=== PATIENT | male | born 1955 | race Caucasian/White ===

== ENCOUNTER → 2016-07-15 | Outpatient (REF) | payer BC ==
[2016-07-15 18:46] LABS: ALBUMIN 4.2 GM/DL (3.2-5.2); ALBUMIN/GLOBULIN RATIO 1.24 (1.00-1.93); ALKALINE PHOSPHATASE 126 U/L (45-117); ALT/SGPT 62 U/L (12-78); AST/SGOT 31 U/L (15-37); BILIRUBIN,DIRECT 0.1 MG/DL (0.0-0.2); BILIRUBIN,TOTAL 0.4 MG/DL (0.2-1.0); GAMMA GLUTAMYLTRANSPEPTIDASE 124 U/L (15-85); TOTAL PROTEIN 7.6 GM/DL (6.4-8.2)
== END ==
LOC: M SFHCLERA 12:07
PROVIDERS: ATTEND Physician Assistant
DX: R94.5 Abnormal results of liver function studies (principal); E11.9 Type 2 diabetes mellitus without complications

== ENCOUNTER → 2016-08-27 | Outpatient (CLI) | payer BC ==
--- NOTE | 2016-08-27 13:03 | REP ---
Clinical: Left hip pain. Technique: Neutral and frog lateral views. Findings: Moderate arthritic degenerative changes are appreciated. Findings include enthesopathy, joint space narrowing, increased sclerosis to the acetabular roof, and subtle associated spurring. No acute fracture dislocation. Impression: Moderate arthritic degenerative changes. Signed by Dayo Stevenson MD 08/27/2016 12:55 P
== END ==
LOC: M LRY 12:16
PROVIDERS: ATTEND Physician Assistant
DX: M16.12 Unilateral primary osteoarthritis, left hip (principal)

== ENCOUNTER → 2017-03-31 | Outpatient (CLI) | payer BC ==
--- NOTE | 2017-03-31 12:49 | REP ---
KUB ABDOMEN AND PELVIS: KUB films of abdomen and pelvis are performed. Bowel gas pattern is normal. A rounded calcification overlies the left renal shadow mid aspect somewhat medially measuring 1.4 cm in diameter probably representing a renal calculus. A smaller calcification is seen overlying the lower pole of the left kidney 5 mm in diameter. There are degenerative changes of the spine. There is evidence of posterior fusion as well as an intervening disc spacer at L4-5 level. IMPRESSION: Two calcifications overlie the left renal shadow which I suspect represent left renal calculi as discussed in detail above. Signed by Flash Sapp MD 03/31/2017 01:50 P
== END ==
LOC: M LRY 10:51
PROVIDERS: ATTEND Physician Assistant
DX: R10.12 Left upper quadrant pain (principal)

== ENCOUNTER → 2017-03-31 | Outpatient (REF) | payer BC ==
[2017-03-31 18:09] LABS: MEAN CORPUSCULAR HGB CONC 32.2 g/dl (32.0-36.5); MEAN CORPUSCULAR VOLUME 90.2 fl (80.0-96.0); RED CELL DISTRIBUTION WIDTH 13.7 % (11.5-14.5); WHITE BLOOD COUNT 8.8 K/mm3 (4.0-10.0)
== END ==
LOC: M SFHCLERA 10:45
PROVIDERS: ATTEND Physician Assistant
DX: R10.12 Left upper quadrant pain (principal); R31.9 Hematuria, unspecified
CPT/HCPCS: 81001; 82150; 83690; 85027; 87086; G0103

== ENCOUNTER → 2017-06-25 | Outpatient (REF) | payer BC ==
[2017-06-25 18:19] LABS: ALBUMIN 4.4 GM/DL (3.2-5.2); ALBUMIN/GLOBULIN RATIO 1.26 (1.00-1.93); ALKALINE PHOSPHATASE 103 U/L (45-117); ALT/SGPT 44 U/L (12-78); ANION GAP 10 MEQ/L (8-16); AST/SGOT 32 U/L (7-37); BILIRUBIN,TOTAL 0.4 MG/DL (0.2-1.0); BLOOD UREA NITROGEN 20 MG/DL (7-18); CALCIUM LEVEL 8.8 MG/DL (8.8-10.2); CARBON DIOXIDE LEVEL 27 MEQ/L (21-32); CHLORIDE LEVEL 103 MEQ/L (98-107); CHOLESTEROL LEVEL 241 MG/DL (<200); CREATININE FOR GFR 1.05 MG/DL (0.70-1.30); GLOMERULAR FILTRATION RATE > 60.0 (>49); GLUCOSE, FASTING 96 MG/DL (80-110); POTASSIUM SERUM 4.8 MEQ/L (3.5-5.1); SODIUM LEVEL 140 MEQ/L (136-145); TOTAL PROTEIN 7.9 GM/DL (6.4-8.2); TRIGLYCERIDES LEVEL 145 MG/DL (<150)
== END ==
LOC: M SFHCLERA 14:31
PROVIDERS: ATTEND Physician Assistant
DX: E11.9 Type 2 diabetes mellitus without complications (principal); E78.2 Mixed hyperlipidemia

== ENCOUNTER → 2017-12-01 | Outpatient (CLI) | payer BC | LOC: M PAIN 13:45 | DX: M96.1 Postlaminectomy syndrome, not elsewhere classified (principal); E11.9 Type 2 diabetes mellitus without complications; F41.9 Anxiety disorder, unspecified; I48.0 Paroxysmal atrial fibrillation; I10 Essential (primary) hypertension; E78.5 Hyperlipidemia, unspecified; M19.90 Unspecified osteoarthritis, unspecified site; R06.83 Snoring; Z79.01 Long term (current) use of anticoagulants; Z79.84 Long term (current) use of oral hypoglycemic drugs; Z79.891 Long term (current) use of opiate analgesic; Z79.899 Other long term (current) drug therapy; Z88.6 Allergy status to analgesic agent; Z88.8 Allergy status to other drugs, medicaments and biological substances; Z87.39 Personal history of other diseases of the musculoskeletal system and connective tissue; Z86.19 Personal history of other infectious and parasitic diseases; Z87.891 Personal history of nicotine dependence | CPT/HCPCS: G0463 ==

== ENCOUNTER → 2017-12-14 | Outpatient (CLI) | payer BC | LOC: M PAIN 11:45 | DX: M96.1 Postlaminectomy syndrome, not elsewhere classified (principal); M50.90 Cervical disc disorder, unspecified, unspecified cervical region; E11.9 Type 2 diabetes mellitus without complications; F41.9 Anxiety disorder, unspecified; I48.91 Unspecified atrial fibrillation; I10 Essential (primary) hypertension; E78.5 Hyperlipidemia, unspecified; M19.90 Unspecified osteoarthritis, unspecified site; Z79.01 Long term (current) use of anticoagulants; Z79.84 Long term (current) use of oral hypoglycemic drugs; Z79.891 Long term (current) use of opiate analgesic; Z79.899 Other long term (current) drug therapy; Z88.6 Allergy status to analgesic agent; Z88.8 Allergy status to other drugs, medicaments and biological substances; Z87.39 Personal history of other diseases of the musculoskeletal system and connective tissue; Z86.19 Personal history of other infectious and parasitic diseases; Z87.891 Personal history of nicotine dependence | CPT/HCPCS: G0463 ==

== ENCOUNTER → 2017-12-18 | Outpatient (REF) | payer BC ==
[2017-12-18 13:33] LABS: APPEARANCE, URINE CLEAR (CLEAR); BACTERIA, URINE AUTO NEGATIVE (NEGATIVE); BILIRUBIN, URINE AUTO NEGATIVE (NEGATIVE); BLOOD, URINE BLOOD 1+ (NEGATIVE); COLOR, URINE YELLOW (YELLOW); GLUCOSE, URINE (UA) AUTO NEGATIVE (NEGATIVE); KETONE, URINE AUTO NEGATIVE (NEGATIVE); LEUKOCYTE ESTERASE, URINE AUTO NEGATIVE (NEGATIVE); NITRITE, URINE AUTO NEGATIVE (NEGATIVE); PROTEIN, URINE AUTO NEGATIVE (NEGATIVE); RBC, URINE AUTO 4 /HPF (0-3); SPECIFIC GRAVITY URINE AUTO 1.012 (1.002-1.035); SQUAMOUS EPITHELIAL CELL UR AU 0 /HPF (0-6); UROBILINOGEN, URINE AUTO 0.2 mg/dL (0.0-2.0); WBC, URINE AUTO 1 /HPF (0-3)
== END ==
LOC: M SMT 13:08
DX: R35.0 Frequency of micturition (principal)
CPT/HCPCS: 81001

== ENCOUNTER → 2018-01-19 | Outpatient (CLI) | payer BC | LOC: M PAIN 11:30 | DX: M96.1 Postlaminectomy syndrome, not elsewhere classified (principal); M50.90 Cervical disc disorder, unspecified, unspecified cervical region; E11.9 Type 2 diabetes mellitus without complications; F41.9 Anxiety disorder, unspecified; I48.0 Paroxysmal atrial fibrillation; I10 Essential (primary) hypertension; M19.90 Unspecified osteoarthritis, unspecified site; Z79.01 Long term (current) use of anticoagulants; Z79.84 Long term (current) use of oral hypoglycemic drugs; Z79.891 Long term (current) use of opiate analgesic; Z79.899 Other long term (current) drug therapy; Z88.6 Allergy status to analgesic agent; Z88.8 Allergy status to other drugs, medicaments and biological substances; Z87.39 Personal history of other diseases of the musculoskeletal system and connective tissue; Z86.19 Personal history of other infectious and parasitic diseases | CPT/HCPCS: G0463 ==

== ENCOUNTER 2018-02-01 09:33 | Day surgery (SDC) | payer BC ==
[~2018-02-01 09:33] MED LIST: LIDOCAINE 2% INJ 100 MG/5 ML SDV (FOR ANES.) As Ordered; MIDAZOLAM INJ 2 MG/2 ML VIAL (J2250) As Ordered; ONDANSETRON 4MG/2ML VIAL (J2405) As Ordered; PROPOFOL 200 MG/20 ML VIAL As Ordered; fentaNYL 100 MCG/2 ML INJECTION (J3010) As Ordered
[2018-02-01] MEDS ORDERED: LR 1,000 ML IV ×2 (10:00→13:45)
[2018-02-01 10:23] LABS: BEDSIDE GLUCOSE 192 MG/DL (80-115)
[2018-02-01] MEDS ORDERED: PHENYLephrine HCL 500 MCG/5 ML (100MCG/ML) SYRINGE (J2370) As Ordered (11:12)
[2018-02-01] MEDS ORDERED: ONDANSETRON 4MG/2ML VIAL (J2405) As Ordered (11:15)
[2018-02-01] MEDS ORDERED: fentaNYL 100 MCG/2 ML INJECTION (J3010) As Ordered ×2 (12:05→13:01)
[2018-02-01] MEDS ORDERED: dexameTHASONE 4 MG/ML 1ML VIAL (J1100) As Ordered (12:06)
[2018-02-01] MEDS: CONRAY-60 60% 50ML VIAL (Q9961) As Ordered (13:00)
[2018-02-01] MEDS: PERCOCET 5MG/325MG TAB PO ×2 (13:38→14:16)
[2018-02-01] MEDS ORDERED: NORCO, ANEXSIA 5/325MG TABLET (HYDROcodone/ACETAMINOPHEN) PO ×2 (13:45)
[2018-02-01] MEDS ORDERED: METOCLOPRAMIDE INJ 10MG/2ML VIAL (J2765) IV (13:45)
[2018-02-01] MEDS ORDERED: ONDANSETRON 4MG/2ML VIAL (J2405) IV (13:45)
[2018-02-01] MEDS: fentaNYL 100 MCG/2 ML INJECTION (J3010) IV ×8 (13:45→14:35)
[2018-02-01] MEDS: MORPHINE 4 MG/ML 1ML VIAL/SYRINGE (J2270) IV (15:23)
== END 2018-02-01 16:02 | disposition home or self-care (01) ==
LOC: M SDC 09:33
DX: N20.0 Calculus of kidney (principal); I10 Essential (primary) hypertension; I48.91 Unspecified atrial fibrillation; E78.5 Hyperlipidemia, unspecified; E11.9 Type 2 diabetes mellitus without complications; Z87.891 Personal history of nicotine dependence; Z79.899 Other long term (current) drug therapy; Z79.02 Long term (current) use of antithrombotics/antiplatelets
CPT/HCPCS: 52356

== ENCOUNTER → 2018-02-15 | Outpatient (CLI) | payer BC | LOC: M PAIN 11:00 | DX: M96.1 Postlaminectomy syndrome, not elsewhere classified (principal); M50.90 Cervical disc disorder, unspecified, unspecified cervical region; F41.9 Anxiety disorder, unspecified; I48.0 Paroxysmal atrial fibrillation; I10 Essential (primary) hypertension; E78.5 Hyperlipidemia, unspecified; E11.9 Type 2 diabetes mellitus without complications; Z87.442 Personal history of urinary calculi; Z87.891 Personal history of nicotine dependence; Z79.891 Long term (current) use of opiate analgesic; Z88.6 Allergy status to analgesic agent; Z88.8 Allergy status to other drugs, medicaments and biological substances; Z79.84 Long term (current) use of oral hypoglycemic drugs; Z79.899 Other long term (current) drug therapy | CPT/HCPCS: G0463 ==

== ENCOUNTER → 2018-04-06 | Outpatient (CLI) | payer BC | LOC: M PAIN 11:15 | DX: M96.1 Postlaminectomy syndrome, not elsewhere classified (principal); M47.816 Spondylosis without myelopathy or radiculopathy, lumbar region; M47.812 Spondylosis without myelopathy or radiculopathy, cervical region; F41.9 Anxiety disorder, unspecified; I48.0 Paroxysmal atrial fibrillation; I10 Essential (primary) hypertension; E78.5 Hyperlipidemia, unspecified; E11.9 Type 2 diabetes mellitus without complications; Z87.442 Personal history of urinary calculi; Z79.891 Long term (current) use of opiate analgesic; Z79.01 Long term (current) use of anticoagulants; Z79.84 Long term (current) use of oral hypoglycemic drugs; Z79.899 Other long term (current) drug therapy; Z88.6 Allergy status to analgesic agent; Z88.8 Allergy status to other drugs, medicaments and biological substances | CPT/HCPCS: G0463 ==

== ENCOUNTER → 2018-04-22 | Outpatient (REF) | payer BC ==
[2018-04-22 17:52] LABS: CHOLESTEROL LEVEL 165 MG/DL (<200); HDL CHOLESTEROL 44 MG/DL (>40); LDL CHOLESTEROL 99 MG/DL (<100); NON-HDL-C 121 MG/DL; TRIGLYCERIDES LEVEL 109 MG/DL (<150)
[2018-04-22 18:05] LABS: ESTIMATED AVERAGE GLUCOSE 160 MG/DL (60-110); HEMOGLOBIN A1c 7.2 %
== END ==
LOC: M SFHCLERA 10:47
DX: E78.2 Mixed hyperlipidemia (principal)
CPT/HCPCS: 83036

== ENCOUNTER → 2018-05-04 | Outpatient (CLI) | payer BC | LOC: M PAIN 11:30 | DX: M96.1 Postlaminectomy syndrome, not elsewhere classified (principal); I48.0 Paroxysmal atrial fibrillation; E11.9 Type 2 diabetes mellitus without complications; I10 Essential (primary) hypertension; E78.5 Hyperlipidemia, unspecified; M19.90 Unspecified osteoarthritis, unspecified site; F41.9 Anxiety disorder, unspecified; Z79.01 Long term (current) use of anticoagulants; Z79.84 Long term (current) use of oral hypoglycemic drugs; Z79.891 Long term (current) use of opiate analgesic; Z79.899 Other long term (current) drug therapy; Z88.6 Allergy status to analgesic agent; Z88.8 Allergy status to other drugs, medicaments and biological substances; Z86.19 Personal history of other infectious and parasitic diseases; Z87.39 Personal history of other diseases of the musculoskeletal system and connective tissue; Z87.891 Personal history of nicotine dependence | CPT/HCPCS: G0463 ==

== ENCOUNTER 2018-06-02 18:17 | Inpatient (IN) | payer BC ==
[2018-06-02] MEDS: NS 1,000 ML IV (19:30)
[2018-06-02 20:26] LABS: ANION GAP 11 MEQ/L (8-16); BLOOD UREA NITROGEN 23 MG/DL (7-18); CALCIUM LEVEL 8.4 MG/DL (8.8-10.2); CARBON DIOXIDE LEVEL 19 MEQ/L (21-32); CHLORIDE LEVEL 108 MEQ/L (98-107); CREATININE FOR GFR 1.09 MG/DL (0.70-1.30); GLOMERULAR FILTRATION RATE > 60.0 (>49); GLUCOSE, FASTING 157 MG/DL (70-100); POTASSIUM SERUM 3.4 MEQ/L (3.5-5.1); SODIUM LEVEL 138 MEQ/L (136-145)
[2018-06-02] MEDS ORDERED: ONDANSETRON 4MG/2ML VIAL (J2405) IV (20:30)
[2018-06-02 20:31] LABS: HEMATOCRIT 42.8 % (42.0-52.0); HEMOGLOBIN 14.1 g/dl (13.5-17.5); MEAN CORPUSCULAR HEMOGLOBIN 27.1 pg (27.0-33.0); MEAN CORPUSCULAR HGB CONC 32.9 g/dl (32.0-36.5); MEAN CORPUSCULAR VOLUME 82.1 fl (80.0-96.0); PLATELET COUNT, AUTOMATED 267 10^3/uL (150-450); RED BLOOD COUNT 5.21 10^6/uL (4.30-6.10); RED CELL DISTRIBUTION WIDTH 14.8 % (11.5-14.5); WHITE BLOOD COUNT 20.6 10^3/uL (4.0-10.0)
[2018-06-02 20:40] LABS: BEDSIDE GLUCOSE 156 MG/DL (80-115)
[2018-06-02] MEDS: APIXABAN 5 MG TAB (ELIQUIS) PO (20:57)
[2018-06-02] MEDS: FLECAINIDE 50MG TABLET PO (20:57)
[2018-06-02] MEDS: PIPERACILLIN/TAZOBACTAM SOD 3.375 GM in D5W MINI-BAG PLUS 50 ML IV (21:00)
[2018-06-02] MEDS: LORazepam 2 MG TAB PO (21:30)
[2018-06-02] MEDS: LOPERAMIDE 2 MG CAP PO (23:35)
[2018-06-03 01:10] LABS: APPEARANCE, URINE HAZY (CLEAR); BACTERIA, URINE AUTO 1+ (NEGATIVE); BILIRUBIN, URINE AUTO NEGATIVE (NEGATIVE); BLOOD, URINE BLOOD 2+ (NEGATIVE); COLOR, URINE YELLOW (YELLOW); GLUCOSE, URINE (UA) AUTO NEGATIVE (NEGATIVE); KETONE, URINE AUTO NEGATIVE (NEGATIVE); LEUKOCYTE ESTERASE, URINE AUTO 3+ (NEGATIVE); NITRITE, URINE AUTO NEGATIVE (NEGATIVE); PROTEIN, URINE AUTO 1+ mg/dL (NEGATIVE); RBC, URINE AUTO 13 /HPF (0-3); SQUAMOUS EPITHELIAL CELL UR AU 0 /HPF (0-6); UROBILINOGEN, URINE AUTO 0.2 mg/dL (0.0-2.0); WBC, URINE AUTO 108 /HPF (0-3)
[2018-06-03] MEDS: CARVedilol 12.5 MG TAB PO ×2 (03:11→08:45)
[2018-06-03] MEDS: LORazepam 2 MG TAB PO ×4 (03:18→21:42)
[2018-06-03] MEDS: NS 1,000 ML IV ×3 (03:30→18:04)
[2018-06-03 05:40] LABS: HEMOGLOBIN 12.8 g/dl (13.5-17.5); MEAN CORPUSCULAR HEMOGLOBIN 27.2 pg (27.0-33.0); MEAN CORPUSCULAR HGB CONC 32.8 g/dl (32.0-36.5); MEAN CORPUSCULAR VOLUME 82.8 fl (80.0-96.0); PLATELET COUNT, AUTOMATED 235 10^3/uL (150-450); RED BLOOD COUNT 4.71 10^6/uL (4.30-6.10); WHITE BLOOD COUNT 16.6 10^3/uL (4.0-10.0)
[2018-06-03] MEDS: PIPERACILLIN/TAZOBACTAM SOD 3.375 GM in D5W MINI-BAG PLUS 50 ML IV ×3 (05:52→21:36)
[2018-06-03 05:54] LABS: ANION GAP 10 MEQ/L (8-16); BLOOD UREA NITROGEN 24 MG/DL (7-18); CALCIUM LEVEL 7.9 MG/DL (8.8-10.2); CARBON DIOXIDE LEVEL 20 MEQ/L (21-32); CHLORIDE LEVEL 109 MEQ/L (98-107); CREATININE FOR GFR 1.09 MG/DL (0.70-1.30); GLOMERULAR FILTRATION RATE > 60.0 (>49); GLUCOSE, FASTING 144 MG/DL (70-100); POTASSIUM SERUM 3.4 MEQ/L (3.5-5.1); SODIUM LEVEL 139 MEQ/L (136-145)
[2018-06-03] MEDS: APIXABAN 5 MG TAB (ELIQUIS) PO ×2 (08:46→21:35)
[2018-06-03] MEDS: FLECAINIDE 50MG TABLET PO ×2 (08:49→21:35)
[2018-06-03] MEDS: DULoxetine 30 MG CAP (CYMBALTA) PO (08:49)
[2018-06-03] MEDS: DIGOXIN INJ 0.5 MG/2 ML AMP (J1160) IV (08:50)
[2018-06-03] MEDS ORDERED: HEPARIN SOD (PORCINE) 5000 UNITS/ML VIAL SQ (09:00)
[2018-06-03] MEDS ORDERED: PROPOFOL 200 MG/20 ML VIAL As Ordered (10:46)
[2018-06-03] MEDS ORDERED: LIDOCAINE 2% INJ 100 MG/5 ML SDV (FOR ANES.) As Ordered (10:46)
[2018-06-03] MEDS ORDERED: MIDAZOLAM INJ 2 MG/2 ML VIAL (J2250) As Ordered (10:47)
[2018-06-03] MEDS ORDERED: fentaNYL 100 MCG/2 ML INJECTION (J3010) As Ordered (10:47)
[2018-06-03] MEDS ORDERED: PHENYLephrine HCL 500 MCG/5 ML (100MCG/ML) SYRINGE (J2370) As Ordered (11:56)
[2018-06-03] MEDS: CONRAY-60 60% 50ML VIAL (Q9961) As Ordered (11:58)
[2018-06-03] MEDS ORDERED: ONDANSETRON 4MG/2ML VIAL (J2405) As Ordered (12:02)
[2018-06-03] MEDS ORDERED: METOCLOPRAMIDE INJ 10MG/2ML VIAL (J2765) As Ordered (12:02)
[2018-06-03] MEDS ORDERED: GLUCAGON FOR INJ 1 MG VIAL (J1610) SC (13:30)
[2018-06-03] MEDS ORDERED: DEXTROSE 50% 50 ML SYRINGE IV (13:30)
[2018-06-03] MEDS ORDERED: GLUCOSE 4 GM CHEW TABLET PO (13:30)
[2018-06-03] MEDS: TAMSULOSIN 0.4 MG CAP PO (13:53)
[2018-06-03] MEDS: NORCO, ANEXSIA 5/325MG TABLET (HYDROcodone/ACETAMINOPHEN) PO ×3 (13:55→21:42)
[2018-06-03] MEDS: HumaLOG INSULIN (NovoLOG) PER UNIT SC ×3 (15:43→20:58)
[2018-06-03] MEDS: LOPERAMIDE 2 MG CAP PO ×2 (18:05→21:35)
[2018-06-03] MEDS: POTASSIUM CHLORIDE 10 MEQ SR TABLET PO (18:06)
[2018-06-03 18:32] LABS: BEDSIDE GLUCOSE 107 MG/DL (80-115)
[2018-06-03 20:58] LABS: BEDSIDE GLUCOSE 127 MG/DL (80-115)
[2018-06-03] MEDS: ROSUVASTATIN 10 MG TAB (CRESTOR) PO (21:35)
[2018-06-04] MEDS: LOPERAMIDE 2 MG CAP PO ×3 (00:39→10:12)
[2018-06-04] MEDS: NORCO, ANEXSIA 5/325MG TABLET (HYDROcodone/ACETAMINOPHEN) PO ×2 (03:25→10:26)
[2018-06-04] MEDS: NS 1,000 ML IV (03:30)
[2018-06-04] MEDS: LORazepam 2 MG TAB PO ×3 (04:40→21:23)
[2018-06-04] MEDS: PIPERACILLIN/TAZOBACTAM SOD 3.375 GM in D5W MINI-BAG PLUS 50 ML IV ×3 (05:18→21:21)
[2018-06-04 06:03] LABS: HEMATOCRIT 35.2 % (42.0-52.0); MEAN CORPUSCULAR HGB CONC 31.3 g/dl (32.0-36.5); MEAN CORPUSCULAR VOLUME 86.5 fl (80.0-96.0); PLATELET COUNT, AUTOMATED 234 10^3/uL (150-450); RED BLOOD COUNT 4.07 10^6/uL (4.30-6.10); RED CELL DISTRIBUTION WIDTH 15.5 % (11.5-14.5); WHITE BLOOD COUNT 13.9 10^3/uL (4.0-10.0)
[2018-06-04 06:30] LABS: ANION GAP 8 MEQ/L (8-16); BLOOD UREA NITROGEN 24 MG/DL (7-18); CALCIUM LEVEL 7.5 MG/DL (8.8-10.2); CARBON DIOXIDE LEVEL 22 MEQ/L (21-32); CHLORIDE LEVEL 108 MEQ/L (98-107); GLOMERULAR FILTRATION RATE > 60.0 (>49); GLUCOSE, FASTING 124 MG/DL (70-100); POTASSIUM SERUM 3.5 MEQ/L (3.5-5.1); SODIUM LEVEL 138 MEQ/L (136-145)
[2018-06-04] MEDS: APIXABAN 5 MG TAB (ELIQUIS) PO ×2 (10:12→21:22)
[2018-06-04] MEDS: FLECAINIDE 50MG TABLET PO ×2 (10:13→21:22)
[2018-06-04] MEDS: DULoxetine 30 MG CAP (CYMBALTA) PO (10:14)
[2018-06-04] MEDS: TAMSULOSIN 0.4 MG CAP PO (10:15)
[2018-06-04] MEDS: HumaLOG INSULIN (NovoLOG) PER UNIT SC ×4 (10:18→21:00)
[2018-06-04 12:18] LABS: BEDSIDE GLUCOSE 103 MG/DL (80-115)
[2018-06-04] MEDS: ACETAMINOPHEN TAB 650MG DOSE (2X325MG) PO (15:48)
[2018-06-04 17:02] LABS: BEDSIDE GLUCOSE 129 MG/DL (80-115)
[2018-06-04 20:23] LABS: BEDSIDE GLUCOSE 127 MG/DL (80-115)
[2018-06-04] MEDS: ROSUVASTATIN 10 MG TAB (CRESTOR) PO (21:23)
[2018-06-05] MEDS: LOPERAMIDE 2 MG CAP PO ×2 (00:09→05:15)
[2018-06-05] MEDS: LORazepam 2 MG TAB PO ×4 (03:34→23:49)
[2018-06-05] MEDS: PIPERACILLIN/TAZOBACTAM SOD 3.375 GM in D5W MINI-BAG PLUS 50 ML IV (05:15)
[2018-06-05 05:57] LABS: HEMATOCRIT 35.3 % (42.0-52.0); HEMOGLOBIN 11.3 g/dl (13.5-17.5); MEAN CORPUSCULAR HEMOGLOBIN 27.3 pg (27.0-33.0); MEAN CORPUSCULAR VOLUME 85.3 fl (80.0-96.0); PLATELET COUNT, AUTOMATED 259 10^3/uL (150-450); RED BLOOD COUNT 4.14 10^6/uL (4.30-6.10); RED CELL DISTRIBUTION WIDTH 15.2 % (11.5-14.5); WHITE BLOOD COUNT 13.5 10^3/uL (4.0-10.0)
[2018-06-05 06:22] LABS: ANION GAP 8 MEQ/L (8-16); BLOOD UREA NITROGEN 15 MG/DL (7-18); CARBON DIOXIDE LEVEL 24 MEQ/L (21-32); CHLORIDE LEVEL 110 MEQ/L (98-107); CREATININE FOR GFR 0.97 MG/DL (0.70-1.30); GLOMERULAR FILTRATION RATE > 60.0 (>49); GLUCOSE, FASTING 135 MG/DL (70-100); POTASSIUM SERUM 3.2 MEQ/L (3.5-5.1); SODIUM LEVEL 142 MEQ/L (136-145)
[2018-06-05] MEDS: POTASSIUM CHLORIDE 10 MEQ SR TABLET PO (08:24)
[2018-06-05] MEDS: LevoFLOXacin 250 MG TABLET PO (08:24)
[2018-06-05] MEDS: TAMSULOSIN 0.4 MG CAP PO (08:25)
[2018-06-05] MEDS: FLECAINIDE 50MG TABLET PO ×2 (08:25→20:42)
[2018-06-05] MEDS: HumaLOG INSULIN (NovoLOG) PER UNIT SC ×4 (08:25→20:42)
[2018-06-05] MEDS: DULoxetine 30 MG CAP (CYMBALTA) PO (08:25)
[2018-06-05] MEDS: APIXABAN 5 MG TAB (ELIQUIS) PO ×2 (08:25→20:42)
[2018-06-05] MEDS ORDERED: oxyBUTYnin 5 MG TAB PO (09:00)
[2018-06-05] MEDS: oxyBUTYnin *DITROPAN XL* 5 MG TABCR PO (10:19)
[2018-06-05] MEDS: LACTOBACILLUS ACIDOPHILUS CAP (BACID) PO ×2 (10:19→17:51)
[2018-06-05 11:52] LABS: BEDSIDE GLUCOSE 94 MG/DL (80-115)
[2018-06-05 17:36] LABS: BEDSIDE GLUCOSE 145 MG/DL (80-115)
[2018-06-05 20:07] LABS: BEDSIDE GLUCOSE 126 MG/DL (80-115)
[2018-06-05] MEDS: ROSUVASTATIN 10 MG TAB (CRESTOR) PO (20:42)
[2018-06-06 05:09] LABS: HEMATOCRIT 33.2 % (42.0-52.0); HEMOGLOBIN 10.9 g/dl (13.5-17.5); MEAN CORPUSCULAR HEMOGLOBIN 27.1 pg (27.0-33.0); MEAN CORPUSCULAR HGB CONC 32.8 g/dl (32.0-36.5); MEAN CORPUSCULAR VOLUME 82.6 fl (80.0-96.0); PLATELET COUNT, AUTOMATED 305 10^3/uL (150-450); RED BLOOD COUNT 4.02 10^6/uL (4.30-6.10); WHITE BLOOD COUNT 11.5 10^3/uL (4.0-10.0)
[2018-06-06 05:29] LABS: ANION GAP 8 MEQ/L (8-16); BLOOD UREA NITROGEN 12 MG/DL (7-18); CALCIUM LEVEL 8.1 MG/DL (8.8-10.2); CARBON DIOXIDE LEVEL 25 MEQ/L (21-32); CHLORIDE LEVEL 108 MEQ/L (98-107); CREATININE FOR GFR 0.91 MG/DL (0.70-1.30); GLOMERULAR FILTRATION RATE > 60.0 (>49); GLUCOSE, FASTING 128 MG/DL (70-100); POTASSIUM SERUM 3.3 MEQ/L (3.5-5.1); SODIUM LEVEL 141 MEQ/L (136-145)
[2018-06-06] MEDS: LevoFLOXacin 250 MG TABLET PO (05:31)
[2018-06-06] MEDS: HumaLOG INSULIN (NovoLOG) PER UNIT SC ×4 (07:47→20:45)
[2018-06-06] MEDS: LACTOBACILLUS ACIDOPHILUS CAP (BACID) PO ×2 (07:47→17:15)
[2018-06-06] MEDS: LORazepam 2 MG TAB PO ×2 (07:47→17:14)
[2018-06-06] MEDS: oxyBUTYnin *DITROPAN XL* 5 MG TABCR PO (08:11)
[2018-06-06] MEDS: POTASSIUM CHLORIDE 10 MEQ SR TABLET PO (08:11)
[2018-06-06] MEDS: APIXABAN 5 MG TAB (ELIQUIS) PO ×2 (08:11→20:50)
[2018-06-06] MEDS: TAMSULOSIN 0.4 MG CAP PO (08:11)
[2018-06-06] MEDS: DULoxetine 30 MG CAP (CYMBALTA) PO (08:11)
[2018-06-06] MEDS: FLECAINIDE 50MG TABLET PO ×2 (08:11→20:53)
[2018-06-06] MEDS ORDERED: MORPHINE 15 MG SA TAB PO (09:00)
[2018-06-06 12:20] LABS: BEDSIDE GLUCOSE 120 MG/DL (80-115)
[2018-06-06 17:26] LABS: BEDSIDE GLUCOSE 140 MG/DL (80-115)
[2018-06-06 20:45] LABS: BEDSIDE GLUCOSE 160 MG/DL (80-115)
[2018-06-06] MEDS: oxyBUTYnin 5 MG TAB PO (20:50)
[2018-06-06] MEDS: ROSUVASTATIN 10 MG TAB (CRESTOR) PO (20:50)
[2018-06-06] MEDS: MORPHINE 15 MG SA TAB PO (20:50)
[2018-06-06] MEDS: NORCO, ANEXSIA 5/325MG TABLET (HYDROcodone/ACETAMINOPHEN) PO (22:07)
[2018-06-07 05:29] LABS: HEMOGLOBIN 12.2 g/dl (13.5-17.5); MEAN CORPUSCULAR HGB CONC 32.1 g/dl (32.0-36.5); MEAN CORPUSCULAR VOLUME 84.1 fl (80.0-96.0); PLATELET COUNT, AUTOMATED 389 10^3/uL (150-450); RED BLOOD COUNT 4.52 10^6/uL (4.30-6.10); RED CELL DISTRIBUTION WIDTH 14.8 % (11.5-14.5); WHITE BLOOD COUNT 10.1 10^3/uL (4.0-10.0)
[2018-06-07] MEDS: LevoFLOXacin 250 MG TABLET PO (05:38)
[2018-06-07 05:50] LABS: ANION GAP 10 MEQ/L (8-16); BLOOD UREA NITROGEN 13 MG/DL (7-18); CARBON DIOXIDE LEVEL 24 MEQ/L (21-32); CHLORIDE LEVEL 105 MEQ/L (98-107); CREATININE FOR GFR 0.99 MG/DL (0.70-1.30); GLOMERULAR FILTRATION RATE > 60.0 (>49); GLUCOSE, FASTING 161 MG/DL (70-100); POTASSIUM SERUM 3.3 MEQ/L (3.5-5.1); SODIUM LEVEL 139 MEQ/L (136-145)
[2018-06-07] MEDS: LACTOBACILLUS ACIDOPHILUS CAP (BACID) PO ×2 (07:39→17:36)
[2018-06-07] MEDS: HumaLOG INSULIN (NovoLOG) PER UNIT SC ×4 (07:40→20:27)
[2018-06-07] MEDS: POTASSIUM CHLORIDE 10 MEQ SR TABLET PO (09:46)
[2018-06-07] MEDS: FLECAINIDE 50MG TABLET PO ×2 (09:53→21:00)
[2018-06-07] MEDS: TAMSULOSIN 0.4 MG CAP PO (09:54)
[2018-06-07] MEDS: oxyBUTYnin 5 MG TAB PO ×3 (09:54→21:09)
[2018-06-07] MEDS: APIXABAN 5 MG TAB (ELIQUIS) PO ×2 (09:54→21:09)
[2018-06-07] MEDS: DULoxetine 30 MG CAP (CYMBALTA) PO (09:56)
[2018-06-07] MEDS ORDERED: SLF 3 ML SYR IV (11:30)
[2018-06-07 11:42] LABS: BEDSIDE GLUCOSE 145 MG/DL (80-115)
[2018-06-07] MEDS: LORazepam 2 MG TAB PO (12:13)
[2018-06-07] MEDS: SLF 3 ML SYR IV ×2 (15:56→21:13)
[2018-06-07 17:09] LABS: BEDSIDE GLUCOSE 136 MG/DL (80-115)
[2018-06-07 20:25] LABS: BEDSIDE GLUCOSE 135 MG/DL (80-115)
[2018-06-07] MEDS: MORPHINE 15 MG SA TAB PO (21:10)
[2018-06-07] MEDS: ROSUVASTATIN 10 MG TAB (CRESTOR) PO (21:10)
[2018-06-08] MEDS: SLF 3 ML SYR IV (05:04)
[2018-06-08] MEDS: LevoFLOXacin 500 MG TABLET PO (05:24)
[2018-06-08 05:55] LABS: HEMATOCRIT 36.7 % (42.0-52.0); HEMOGLOBIN 11.7 g/dl (13.5-17.5); MEAN CORPUSCULAR HEMOGLOBIN 27.1 pg (27.0-33.0); MEAN CORPUSCULAR HGB CONC 31.9 g/dl (32.0-36.5); PLATELET COUNT, AUTOMATED 493 10^3/uL (150-450); RED BLOOD COUNT 4.32 10^6/uL (4.30-6.10); RED CELL DISTRIBUTION WIDTH 14.9 % (11.5-14.5); WHITE BLOOD COUNT 11.3 10^3/uL (4.0-10.0)
[2018-06-08 06:24] LABS: ANION GAP 7 MEQ/L (8-16); BLOOD UREA NITROGEN 14 MG/DL (7-18); CALCIUM LEVEL 8.4 MG/DL (8.8-10.2); CARBON DIOXIDE LEVEL 28 MEQ/L (21-32); CHLORIDE LEVEL 104 MEQ/L (98-107); CREATININE FOR GFR 0.93 MG/DL (0.70-1.30); GLOMERULAR FILTRATION RATE > 60.0 (>49); GLUCOSE, FASTING 130 MG/DL (70-100); POTASSIUM SERUM 3.8 MEQ/L (3.5-5.1); SODIUM LEVEL 139 MEQ/L (136-145)
[2018-06-08] MEDS: HumaLOG INSULIN (NovoLOG) PER UNIT SC (07:30)
[2018-06-08] MEDS: FLECAINIDE 50MG TABLET PO (08:22)
[2018-06-08] MEDS: LORazepam 2 MG TAB PO (08:23)
[2018-06-08] MEDS: DULoxetine 30 MG CAP (CYMBALTA) PO (08:23)
[2018-06-08] MEDS: POTASSIUM CHLORIDE 10 MEQ SR TABLET PO (08:23)
[2018-06-08] MEDS: APIXABAN 5 MG TAB (ELIQUIS) PO (08:23)
[2018-06-08] MEDS: TAMSULOSIN 0.4 MG CAP PO (08:23)
[2018-06-08] MEDS: LACTOBACILLUS ACIDOPHILUS CAP (BACID) PO (08:23)
[2018-06-08] MEDS: oxyBUTYnin 5 MG TAB PO (08:24)
== END 2018-06-08 11:48 | disposition home or self-care (01) | DRG 720 ==
LOC: M PCU 18:17
PROVIDERS: Hospitalist
PROC: 0T9740Z Drainage of Left Ureter with Drainage Device, Percutaneous Endoscopic Approach (ICD-10-PCS; principal; 2018-06-03 11:37)
DX: A41.51 Sepsis due to Escherichia coli [E. coli] (principal); N13.30 Unspecified hydronephrosis; I10 Essential (primary) hypertension; I48.0 Paroxysmal atrial fibrillation; N20.1 Calculus of ureter; M96.1 Postlaminectomy syndrome, not elsewhere classified; E11.9 Type 2 diabetes mellitus without complications; N39.0 Urinary tract infection, site not specified; E78.5 Hyperlipidemia, unspecified; Z79.899 Other long term (current) drug therapy; Z79.82 Long term (current) use of aspirin; Z88.6 Allergy status to analgesic agent; R19.7 Diarrhea, unspecified; B18.2 Chronic viral hepatitis C

== ENCOUNTER → 2018-06-15 | Outpatient (CLI) | payer BC | LOC: M SMT 15:23 | DX: N20.0 Calculus of kidney (principal); Z96.0 Presence of urogenital implants | CPT/HCPCS: 74018 ==

== ENCOUNTER → 2018-06-15 | Outpatient (REF) | payer BC ==
[2018-06-15 19:14] LABS: APPEARANCE, URINE CLEAR (CLEAR); BACTERIA, URINE AUTO NEGATIVE (NEGATIVE); BILIRUBIN, URINE AUTO NEGATIVE (NEGATIVE); BLOOD, URINE BLOOD 2+ (NEGATIVE); COLOR, URINE YELLOW (YELLOW); GLUCOSE, URINE (UA) AUTO NEGATIVE (NEGATIVE); KETONE, URINE AUTO NEGATIVE (NEGATIVE); LEUKOCYTE ESTERASE, URINE AUTO TRACE (NEGATIVE); NITRITE, URINE AUTO NEGATIVE (NEGATIVE); PROTEIN, URINE AUTO NEGATIVE (NEGATIVE); RBC, URINE AUTO 18 /HPF (0-3); SPECIFIC GRAVITY URINE AUTO 1.008 (1.002-1.035); SQUAMOUS EPITHELIAL CELL UR AU 0 /HPF (0-6); UROBILINOGEN, URINE AUTO 0.2 mg/dL (0.0-2.0); WBC, URINE AUTO 7 /HPF (0-3)
== END ==
LOC: M SMT 17:16
DX: N20.0 Calculus of kidney (principal)
CPT/HCPCS: 81001

== ENCOUNTER → 2018-06-22 | Outpatient (CLI) | payer BC ==
[~2018-06-22] MED LIST changes: +CARV12.5 PO; +DILT1TAB3 PO; +DILT30TA PO; +DULO1CAP2 PO; +DULO1CAP3 PO; +ELIQ5TAB PO; +FLEC1TAB PO; +FLOM0.4C39 PO; +HYDR-3719 PO; +KLOR10TA76 PO; +LEVA1TAB2 PO; -LIDOCAINE 2% INJ 100 MG/5 ML SDV (FOR ANES.) As Ordered; +LORA2TAB9 PO; +METF500T13 PO; +METF500T4 PO; -MIDAZOLAM INJ 2 MG/2 ML VIAL (J2250) As Ordered; +MORP-38 PO; +MORP30TASA PO; -ONDANSETRON 4MG/2ML VIAL (J2405) As Ordered; +OXYB5TAB10 PO; +PATIENT COMMENTS; -PROPOFOL 200 MG/20 ML VIAL As Ordered; +ROSU10TA5 PO; -fentaNYL 100 MCG/2 ML INJECTION (J3010) As Ordered
--- NOTE | 2018-07-15 00:36 | ECWPNPC ---
PATIENT NAME: TAMIR JASSO : 1955 GENDER: MALE VISIT DATE: 06/22/2018 DISCHARGE DATE: 06/22/18 1008 VISIT LOCKED DATE TIME: PHYSICIAN: WARREN SNYDER RESOURCE: WARREN SNYDER REASON FOR APPOINTMENT 1. SW PT, BACK PAIN MED MAN HISTORY OF PRESENT ILLNESS DEPRESSION SCREENING: PHQ-2 IN LAST TWO WEEKS HAVE YOU BEEN BOTHERED BY LITTLE INTEREST OR PLEASURE IN DOING THINGSNO FEELING DOWN, DEPRESSED, OR HOPELESSNO HISTORY OF PRESENT ILLNESS: PAIN THE PATIENT DESCRIBES THE PAIN... FALL RISK SCREENING: SCREENING :NO FALLS IN THE PAST YEAR CURRENT MEDICATIONS TAKING EPIPEN 0.3 MG/0.3ML DEVICE USE DIRECTED INJECTION AT FIRST SIGN OF ANAPHYLAXIS AND GO TO ED. TAKING ALCOHOL PREP PAD 70 % PAD USE 1 PAD TOPICALLY WHEN TESTING BLOOD SUGAR UP TO BID (DX: 250.00) TAKING FLECAINIDE ACETATE 100 MG TABLET 1 TABLET ORALLY BID TAKING ELIQUIS 5 MG TABLET ORALLY BID TAKING ONE TOUCH ULTRA TEST STRIPS ULTRA MINI STRIPS USE 1 TEST STRIP . TO TEST BLOOD SUGAR UP TO BID (DX: 250.00) TAKING ATIVAN 2 MG TABLET 1TAB ORALLY QID PRN MDD=4 TAKING CYMBALTA 60 MG CAPSULE DELAYED RELEASE PARTICLES 1 CAPSULE ORALLY 15 MG TID TAKING METFORMIN HCL 500 MG TABLET 1 TABLET WITH A MEAL ORALLY ONCE A DAY TAKING ONETOUCH TEST - STRIP DIRECTED IN VITRO BID ICD10 E11.65 TAKING HYDROMORPHONE HCL ER 8 MG TABLET ER 24 HOUR ABUSE-DETERRENT 1 TABLET ORALLY Q 12 HRS MDD=2 TAKING HYDROCODONE-ACETAMINOPHEN 10-325 MG TABLET 1 TABLET NEEDED ORALLY 1 TAB Q4H PRN MDD5 TAKING OXYBUTYNIN CHLORIDE 5 MG TABLET 1 TABLET ORALLY TWICE A DAY TAKING TAMSULOSIN HCL 0.4 MG CAPSULE 1 CAPSULE ORALLY ONCE A DAY TAKING DULOXETINE HCL 30 MG CAPSULE DELAYED RELEASE PARTICLES 1 CAPSULE ORALLY ONCE A DAY TAKING ADJUSTABLE ALUMINUM CANE 1 MISCELLANEOUS DIRECTED USE NEEDED FOR GAIT STEADINESS TAKING LEVOFLOXACIN 250 MG TABLET 1 TABLETS ORALLY BID TAKING CRESTOR 10 MG TABLET 1 TABLET ORALLY ONCE A DAY TAKING ONE TOUCH DELICA 33 GAUGE LANCETS USE 1 LANCET SUBCUTANEOUSLY TO TEST BLOOD SUGAR UP TO BID. (ICD10 E11.65) TAKING CARVEDILOL 12.5 MG TABLET 1/2 TAB ORALLY DAILY TAKING ROSUVASTATIN CALCIUM 10 MG TABLET 1 TABLET ORALLY ONCE A DAY NOT-TAKING POTASSIUM CHLORIDE 20 MEQ PACKET 2 PACKET WITH FOOD ORALLY ONCE A DAY NOT-TAKING MIRALAX - PACKET 1 PACKET MIXED WITH 8 OUNCES OF FLUID ORALLY ONCE A DAY NOT-TAKING INDOCIN 50 MG CAPSULE 1 CAPSULE WITH FOOD ORALLY THREE TIMES A DAY FOR GOUT FLARE NEEDED NOT-TAKING COREG 12.5 MG TABLET ONE HALF ORALLY DAILY DISCONTINUED DILTIAZEM HCL 30 MG TABLET 1 TABLETS ORALLY FOUR TIMES A DAY MEDICATION LIST REVIEWED AND RECONCILED WITH THE PATIENT PAST MEDICAL HISTORY LBP HLP ANXIETY H/O HEPATITIS C (PREVIOUSLY TREATED AND CURRENTLY UNDETECTABLE) H/O GOUT PAROXYSMAL A-FIB (FOLLOWED BY DR. MONTES) HYPERTENSION HYPERLIPIDEMIA ARTHRITIS DM A-FIB KIDNEY STONES UTI ALLERGIES ASPIRIN: UPSET STOMACH: SIDE EFFECTS BUSPAR: UNRESPONSIVENESS: ALLERGY SURGICAL HISTORY NO PERSONAL OR FHX OF SEVERE REACTION TO ANESTHESIA TRIGGER FINGER BILAT (SOS, DR. OVALLES) 2000 COLONOSCOPY (REPEAT IN 10YRS) 07/26/2012 DISKECTOMY 08/2014 TLIF AT [facility] 06/25/15 LASER LITHO WITH LEFT STENT PLACEMENT 02/01/2018 CYSTO WITH LEFT STENT REMOVAL 02/08/2018 LASER LITHO WITH LEFT STENT PLACEMENT 06/03/2018 SOCIAL HISTORY GENERAL: TOBACCO USE ARE YOU A:: FORMER SMOKER , HOW LONG HAS IT BEEN SINCE YOU LAST SMOKED?: > 10 YEARS. ALCOHOL SCREENING POINTS: 4, INTERPRETATION: POSITIVE. RECREATIONAL DRUG USE DENIES. CAFFEINE 2-5/DAY. SEXUAL HX HAD SEX IN THE LAST 12 MONTHS (VAGINAL, ORAL, OR ANAL)?: NO, HAVE YOU EVER HAD AN STD?: NO. HIV / HEP-C SCREENING HIV TEST OFFERED TO PATIENT:YES DATE OFFERED:01/22/2018 TEST ACCEPTED:NO HEP-C TEST OFFERED TO PATIENT:YES DATE OFFERED:01/22/2018 REASON:PATIENT DECLINED TEST ACCEPTED:NO REASON:PATIENT DECLINED BROCHURE PROVIDED TO PATIENTNO TAOISM NO SIKHISM BELIEFS THAT WOULD IMPACT HEALTH CARE. LANGUAGE LANGUAGES SPOKEN:GER[employer] EDUCATION GRAD HS. LEARNING BARRIERS / SPECIAL NEEDS CHANGE FROM LAST VISIT?NO BARRIERS TO LEARNING?NO HEARING IMPAIRED?NO VISION IMPAIRED?YES COGNITIVELY IMPAIRED?NO :CORRECTIVE LENSES READINESS TO LEARN?YES LEARNING PREFERENCES?NO LEARNING CAPABILITIES PRESENT?YES EMOTIONAL BARRIERS?NO SPECIAL DEVICES?NO UNDERTAKER ASSISTANT NEEDED?NO DOMESTIC VIOLENCE DO YOU FEEL SAFE IN YOUR ENVIRONMENT?YES OCCUPATION: [employer]. DIET: REGULAR DIET, AVOIDS "JUNK FOOD". EXERCISE: NO REGULAR EXERCISE, BUT DOES BARN CHORES. MARITAL STATUS: . OTHERS AT HOME: SPOUSE. PAIN CLINIC PFS, CLERGY, PUBLIC HEALTH REFERRALS HAS THE PATIENT BEEN EDUCATED REGARDING HIS/HER PLAN OF CARE?YES HAS THE PATIENT BEEN EDUCATED REGARDING PAIN, THE RISK FOR PAIN, THE IMPORTANCE OF EFFECTIVE PAIN MANAGEMENT, AND THE PAIN ASSESSMENT PROCESS?YES HOUSING: OWNS HOME. ADVANCE DIRECTIVE ADVANCE DIRECTIVE DISCUSSED WITH PATIENT:YES PT DOES NOT HAVE ANY ADVANCE DIRECTIVES AND HE DECLINES INFORMATION ON HCP AT THIS TIME. 05/04/18 1214 REVIEWED WITH PT. AD. HOSPITALIZATION/MAJOR DIAGNOSTIC PROCEDURE [place]LLULITIS/[place]LEBITIS ([facility] [place]) 1976 TRIGGER FINGER SURGERY EDI NALINI-BUSPAR REACTION 11/2014 [facility]-NECK AND BACK SURGERY 06/2015 UROSEPSIS, KIDNEY STONE 05/2018 REVIEW OF SYSTEMS REVIEWED BY: PROVIDER: WARREN VARMA . CONSTITUTIONAL: ANY CHANGE IN YOUR MEDICAL CONDITION? YES, RECENTLY HOSPITALIZED AT [facility] FOR SESPSIS, D/C HOME 06/09/18 . CHILLS NO . FEVER NO . INFECTION: DO YOU HAVE NEW INFECTIONS? YES, SEPSIS RESOLVED . DO YOU HAVE HISTORY OF MRSA? NO . MUSCULOSKELETAL: ANY NEW PATTERNS OF PAIN OR NUMBNESS? YES, BILAT LEG ACHING WHILE GOING UP AND DOWN STAIRS . GASTROENTEROLOGY: ANY NEW CHANGE IN BOWEL CONTROL? YES, DIARRHEA W SEPSIS RESOLVED . GENITOURINARY: ANY NEW CHANGE IN BLADDER CONTROL? YES, INCONTINENCE W SEPSIS RESOLVED . IS THERE A CHANCE YOU COULD BE ? NO . HEMATOLOGY/LYMPH: DO YOU TAKE ANY BLOOD THINNERS? (FOR EXAMPLE- COUMADIN, PLAVIX, AGGRENOX, PLATEL, PRADAXA, OR XARELTO) YES, ELIQUIS . WHEN WAS YOUR LAST DOSE? DATE: TIME: . NEUROLOGY: HAVE YOU FALLEN IN THE PAST 6 MONTHS? NO . ANY NEW EXTREMITY NUMBNESS OR WEAKNESS? YES, BILAT LEGS . CARDIOLOGY: DO YOU HAVE A PACEMAKER OR DEFIBRILLATOR? NO . RESPIRATORY: HAVE YOU BEEN SICK IN THE PAST WEEK? YES, SEPSIS RESOLVED . FEVER YES, RESOLVED . FLU LIKE SYMPTOMS? NO . COUGH NO . INTEGUMENTARY: DO YOU HAVE ANY RASHES OR OPEN SORES? NO . ALLERGIC/IMMUNO: ARE YOU ALLERGIC TO SHELLFISH OR IV DYE? NO . ANY NEW ALLERGIES? NO . PSYCHIATRIC: DO YOU HAVE THOUGHTS OF HURTING YOURSELF OR SOMEONE ELSE? NO . ARE YOU ABUSED, NEGLECTED, OR IN AN UNSAFE ENVIRONMENT? NO . ENDOCRINOLOGY: ARE YOU DIABETIC? YES . OTHER: DO YOU NEED ANY PRESCRIPTIONS? YES, HYDROCODONE, HYDROMORPHONE . IF YES, PLEASE LIST: ____ . ANY NEW PROBLEMS WITH YOUR MEDICATIONS? NO . WHEN DID YOU LAST EAT? ____ . WHEN DID YOU LAST DRINK? ____ . WHAT DID YOU LAST DRINK? ____ . NAME OF PERSON DRIVING YOU HOME? ____ . DO YOU HAVE ANY OTHER QUESTIONS OR CONCERNS NO, FLU VACCINE RECEIVED 04/2018 . VITAL SIGNS WT 232.6 LBS, HT 74 IN, BMI 29.86 INDEX, BP 134/81 MM HG, HR 85 /MIN, RR 18 /MIN, TEMP 97.2 F, OXYGEN SAT % 96%, NA INITIALS AW 0839, REVIEWED BY: EM. EXAMINATION GENERAL EXAMINATION: GENERAL APPEARANCE:AWAKE,ALERT ,PLEAASANT . PSYCHAFFECT NORMAL . LUNGS:LUNG WIGGINS ARE CLEAR TO AUSCULTATION BILATERALLY. GOOD MOVEMENT OF AIR . HEART:S1, S2 IN A REGULAR RATE AND RHYTHM. NO SIGNIFICANT MURMURS, RUBS OR GALLOPS NOTED . MUSCULOSKELETAL:WEAK OVER RIGHT LEG COMPARED TO LEFT SPECIFIC RIGHT SIJ TENDERNESS INCREASE IN PAIN W EXTENSION OF SPINE.LESS PAIN WITH FLEXION.. LUMBAR SACRAL SPINEPALPATION: + FOR PAIN OVER L/S SPINE. + FOR PAIN OVER L/S PARASPINALS . NEUROLOGIC EXAM:NORMAL SENSATION LIGHT TOUCH BILAT. LOWER EXTREMITIES . ASSESSMENTS LUMBAR POST-LAMINECTOMY SYNDROME - M96.1 (PRIMARY) USE OF OPIATES FOR THERAPEUTIC PURPOSES - Z79.891 TREATMENT LUMBAR POST-LAMINECTOMY SYNDROME REFILL HYDROMORPHONE HCL ER TABLET ER 24 HOUR ABUSE-DETERRENT, 8 MG, 1 TABLET, ORALLY, 1 TAB AT HS MDD1, 30 DAY(S), 30, REFILLS 0 REFILL HYDROCODONE-ACETAMINOPHEN TABLET, 10-325 MG, 1 TABLET NEEDED, ORALLY, Q6H PRN MDD4, 30 DAY(S), 120, REFILLS 0 SMC [address] LS SPINE W/O AND WITH [id number] NOTES: ISTOP REGISTRY REVIEWED AND DEMONSTRATES COMPLLIANCE. (REF #[id number] ) BRINGS IN MEDICATIONS WHICH IS APPROPRIATE FOR WHAT WAS DISPENSED. RECENT URINE TOXICOLOGY REVIEWED. NO UNAUTHORIZED MEDICATIONS. NO ILLICIT SUBSTANCES AND PRESCRIBED MEDICATIONS WERE PRESENT. , RISKS AND BENEFITS OF NARCOTIC/OPIOD MEDICATIONS WERE REVIEWED WITH PATIENT - THIS INCLUDES BUT IS NOT LIMITED TO RISK OF DEPENDANCE/DEVELOPMENT OF ADDICTION, MOOD DISTURBANCE AND DEPRESSION, OSTEOPOROSIS, HORMONAL AND LABIDAL CHANGES, RESPIRATORY DEPRESSION AND . PATIENT IS ADVISED NOT TO DRIVE OR DRINK ALCOHOL WHILE ON THESE MEDICATIONSDCS INFO GIVEN. PROCEDURE CODES FA211 ESTABILISHED PATIENT [facility] CHARGE DISPOSITION & COMMUNICATION FOLLOW UP 6 WEEKS ELECTRONICALLY SIGNED BY KOJO CHAPIN ON 07/14/2018 AT 03:39 PM EST DISCLAIMER : THIS IS A VISIT SUMMARY EXTRACTED FROM THE [employer] CHART. IT IS NOT A COPY OF THE [employer] PROGRESS NOTE. NOE
== END ==
LOC: M PAIN 08:30
PROVIDERS: ATTEND Nurse Practitioner Family
DX: M96.1 Postlaminectomy syndrome, not elsewhere classified (principal); F41.9 Anxiety disorder, unspecified; I48.0 Paroxysmal atrial fibrillation; I10 Essential (primary) hypertension; E78.5 Hyperlipidemia, unspecified; E11.9 Type 2 diabetes mellitus without complications; Z87.442 Personal history of urinary calculi; Z87.440 Personal history of urinary (tract) infections; Z87.891 Personal history of nicotine dependence; Z79.891 Long term (current) use of opiate analgesic; Z79.01 Long term (current) use of anticoagulants; Z79.84 Long term (current) use of oral hypoglycemic drugs; Z79.899 Other long term (current) drug therapy; Z88.6 Allergy status to analgesic agent; Z88.8 Allergy status to other drugs, medicaments and biological substances

== ENCOUNTER → 2018-07-29 | Outpatient (REF) | payer BC ==
[2018-07-29 16:41] LABS: ALBUMIN 3.7 GM/DL (3.2-5.2); ALT/SGPT 23 U/L (12-78); BILIRUBIN,TOTAL 0.4 MG/DL (0.2-1.0); BLOOD UREA NITROGEN 18 MG/DL (7-18); CARBON DIOXIDE LEVEL 31 MEQ/L (21-32); CHLORIDE LEVEL 104 MEQ/L (98-107); CHOLESTEROL LEVEL 207 MG/DL (<200); CHOLESTEROL RISK RATIO 3.631 (<5); CREATININE FOR GFR 1.06 MG/DL (0.70-1.30); GLOMERULAR FILTRATION RATE > 60.0 (>49); GLUCOSE, FASTING 112 MG/DL (70-100); HDL CHOLESTEROL 57 MG/DL (>40); LDL CHOLESTEROL 119 MG/DL (<100); NON-HDL-C 150 MG/DL; POTASSIUM SERUM 4.8 MEQ/L (3.5-5.1); SODIUM LEVEL 141 MEQ/L (136-145); TOTAL PROTEIN 7.7 GM/DL (6.4-8.2); TRIGLYCERIDES LEVEL 154 MG/DL (<150)
[2018-07-29 17:05] LABS: HEMOGLOBIN A1c 6.4 %
== END ==
LOC: M LABSMT 11:08
PROVIDERS: ATTEND Urology
DX: E11.9 Type 2 diabetes mellitus without complications (principal); E78.2 Mixed hyperlipidemia

== ENCOUNTER 2018-08-06 09:39 | Day surgery (SDC) | payer BC ==
[~2018-08-06] VITALS: Ht 188 cm; Wt 101.2 kg
[~2018-08-06 09:39] MED LIST changes: +CARV6.25 PO
[2018-08-06] MEDS ORDERED: LR 1,000 ML IV ONE (10:00)
[2018-08-06 10:15] LABS: HEMATOCRIT 47.8 % (42.0-52.0); HEMOGLOBIN 14.9 g/dl (13.5-17.5); MEAN CORPUSCULAR HEMOGLOBIN 26.8 pg (27.0-33.0); MEAN CORPUSCULAR HGB CONC 31.2 g/dl (32.0-36.5); MEAN CORPUSCULAR VOLUME 86.1 fl (80.0-96.0); PLATELET COUNT, AUTOMATED 287 10^3/uL (150-450); RED BLOOD COUNT 5.55 10^6/uL (4.30-6.10); WHITE BLOOD COUNT 8.8 10^3/uL (4.0-10.0)
[2018-08-06] MEDS ORDERED: PROPOFOL 200 MG/20 ML VIAL As Ordered ONE (10:47)
[2018-08-06] MEDS ORDERED: LIDOCAINE 2% INJ 100 MG/5 ML SDV (FOR ANES.) As Ordered ONE (10:47)
[2018-08-06] MEDS ORDERED: MIDAZOLAM INJ 2 MG/2 ML VIAL (J2250) As Ordered ONE (10:47)
[2018-08-06] MEDS ORDERED: fentaNYL 100 MCG/2 ML INJECTION (J3010) As Ordered ONE (10:48)
[2018-08-06] MEDS ORDERED: dexameTHASONE 4 MG/ML 1ML VIAL (J1100) As Ordered ONE (10:48)
[2018-08-06] MEDS ORDERED: PHENYLephrine HCL 500 MCG/5 ML (100MCG/ML) SYRINGE (J2370) As Ordered ONE (10:51)
[2018-08-06] MEDS ORDERED: CONRAY-60 60% 50ML VIAL (Q9961) As Ordered ONE (12:33)
[2018-08-06] MEDS ORDERED: ONDANSETRON 4MG/2ML VIAL (J2405) As Ordered ONE (13:30)
[2018-08-06] MEDS ORDERED: KETOROLAC 60 MG/2 ML VIAL (J1885) As Ordered ONE (13:41)
[2018-08-06] MEDS ORDERED: fentaNYL 100 MCG/2 ML INJECTION (J3010) IV PRN (14:15)
[2018-08-06] MEDS ORDERED: PERCOCET 5MG/325MG TAB PO PRN ×2 (14:15)
[2018-08-06] MEDS ORDERED: HYDROMORPHONE HCL 0.5 MG/ 0.5 ML SYRINGE (J1170 PER 1) IV PRN (14:15)
[2018-08-06] MEDS ORDERED: LR 1,000 ML IV SCH (14:15)
[2018-08-06] MEDS ORDERED: ONDANSETRON 4MG/2ML VIAL (J2405) IV PRN (14:15)
--- NOTE | 2018-08-06 15:07 | REP ---
RETROGRADE PYELOGRAM: TWO VIEWS. HISTORY: Nephrolithiasis. 0.05 minutes of fluoroscopy time is reported. FINDINGS: A sequence of two last image hold fluoroscopically obtained spot radiographs of the left abdomen document left ureteral cannulation and contrast injection. Electronically Signed by Dae Bella MD 08/06/2018 04:43 P
[2018-08-06 15:25] VITALS: BP 133/82
--- NOTE | 2018-08-07 04:03 | RO ---
DATE OF PROCEDURE: 08/06/2018 PREPROCEDURE DIAGNOSIS: Left kidney and ureteral stones. POSTPROCEDURE DIAGNOSIS: Left kidney and ureteral stones. PROCEDURE: Cystoscopy, left ureteroscopy with basket extraction of stones, left retrograde pyelogram with intraoperative interpretation of images, left ureteral stent removal. SURGEON: Dr. Ellis Gonzalez ACETONE RECOVERY WORKER: None. ANESTHESIA: General. OPERATIVE INDICATIONS: This 63-year-old male who recently had a left ureteral stent placed for an obstructing ureteral stone. He was brought to the operating room today for removal of the stone as well as the kidney stone. DESCRIPTION OF PROCEDURE: The patient was brought to the operating room where general anesthesia was induced. Prophylactic antibiotics were infused. He was then placed in the dorsal lithotomy position and prepped an draped in the usual sterile fashion. A rigid cystoscope was inserted through the urethral meatus. A rigid cystoscope was inserted into the urethral meatus and advanced to the bladder. Once inside the bladder the previous place stent was seen. I then advance the guidewire up the left collecting system along side the stent. The stent was then removed leaving the wire in place. At this point I went up the left collecting system with a short semi-rigid ureteroscope and in the proximal ureter there was an approximately 3 mm stone. The stone was grasped with the basket and withdrawn completely. I then advanced the ureteral access sheath up into the left collecting system. I then went up the access sheath with a flexible ureteroscope and examined the kidney thoroughly. A 4 mm stone was seen within the left kidney. No other stones were seen. The stone was then grasped with the basket and withdrawn. A retrograde pyelogram was performed and it was notable for moderate left hydronephrosis and no extravasation. At this point I withdrew the ureteroscope along with the access sheath and no additional stones in the ureter. Of note the ureter was dilated because of the stent which had been in place for about 2 months. Because of this I decided not to place another stent. At this point the wire was removed and the bladder was then emptied of all fluids and this marked the conclusion of the procedure. The patient was then taken out of dorsal lithotomy position and awakened from anesthesia and transported to the recovery room in stable condition. ESTIMATED BLOOD LOSS: 5 mL. COMPLICATIONS: None. SPECIMENS: Kidney stones. PLAN: The patient will followup in the clinic in a few weeks for a postoperative visit. NOE
[2018-08-13 00:07] LABS: CA Oxalate Dihy 10 % (.); COMMENT Note: (.); Ca Ox Monohydrate 85 % (.)
== END 2018-08-06 15:25 | disposition home or self-care (01) ==
LOC: M SDC 09:39
PROVIDERS: ATTEND Urology
DX: N20.0 Calculus of kidney (principal); N20.1 Calculus of ureter; I48.91 Unspecified atrial fibrillation; Z79.01 Long term (current) use of anticoagulants; I10 Essential (primary) hypertension; E78.5 Hyperlipidemia, unspecified; Z87.891 Personal history of nicotine dependence; Z79.84 Long term (current) use of oral hypoglycemic drugs; E11.9 Type 2 diabetes mellitus without complications; Z79.899 Other long term (current) drug therapy
CPT/HCPCS: 36415; 52352; 74420; 82360; 85027; 88300; C1769; C1894; J0690; J1100; J1885; J2250; J2370; J2405; J3010; Q9961

== ENCOUNTER → 2018-08-11 | Outpatient (CLI) | payer BC ==
[~2018-08-11] MED LIST changes: +PROHANCE 279.3MG/ML 15ML VIAL (A9576) As Ordered ONE; +PROHANCE 279.3MG/ML 5ML VIAL (A9576) As Ordered ONE
--- NOTE | 2018-08-11 12:38 | REP ---
MRI LUMBAR SPINE WITHOUT AND WITH IV GADOLINIUM: HISTORY: Post laminectomy syndrome. COMPARISON STUDY: May 28, 2015. TECHNIQUE: Sagittal and axial T1- and T2-weighted scans are acquired in the usual fashion with and without fat saturation. Sequences include spin echo, turbo spin-echo, and STIR imaging sequences. Gadolinium enhancement dose is 20 mL of intravenous ProHance. MRI FINDINGS: In the interval since the prior exam, the patient has undergone transpedicle screw placement, dorsal fixation, and intervertebral disc stabilization implant at L4-5. L4 laminectomy has been performed. There is a minimal L4-5 spondylolisthesis, 3 mm which is improved. This is there is moderate circumferential mildly enhancing granulation tissue around the thecal sac at the L4-5 disc level without nerve root displacement or thecal sac compression. There is some disc bulging but the previously noted central canal stenosis is resolved. At L3-4, central canal stenosis is much improved. There is mild residual facet hypertrophy. There is right-sided neural foraminal narrowing at the L3-4 level which appears more pronounced. This is due to disc bulging and facet hypertrophy. At L5-S1, there is mild facet hypertrophy bilaterally. No disc protrusion is seen. The L2-3 disc level shows some mild facet and ligamentum flavum hypertrophy. Canal size is borderline. The findings are unchanged. No neural foraminal encroachment. At the L1-2 no significant finding. No other significant abnormal gadolinium enhancement is seen. IMPRESSION: Status post L4 laminectomy and L4-5 fusion surgery. Postop granulation tissue without displacement. Central canal stenosis improved and L3-4 and L4-5. Right-sided neural foraminal narrowing is seen L3-4 which appears more prominent. Electronically Signed by Dae Bella MD 08/11/2018 03:17 P
== END ==
LOC: M RAD 10:18
PROVIDERS: ATTEND Nurse Practitioner Family
DX: M96.1 Postlaminectomy syndrome, not elsewhere classified (principal); Z98.1 Arthrodesis status; M48.061 Spinal stenosis, lumbar region without neurogenic claudication
CPT/HCPCS: 72158; A9576

== ENCOUNTER → 2018-08-23 | Outpatient (CLI) | payer BC ==
[~2018-08-23] MED LIST changes: -PROHANCE 279.3MG/ML 15ML VIAL (A9576) As Ordered ONE; -PROHANCE 279.3MG/ML 5ML VIAL (A9576) As Ordered ONE
--- NOTE | 2018-09-09 01:12 | ECWPNPC ---
PATIENT NAME: TAMIR JASSO : 1955 GENDER: MALE VISIT DATE: 08/23/2018 DISCHARGE DATE: 08/23/18 1230 VISIT LOCKED DATE TIME: PHYSICIAN: WARREN SNYDER RESOURCE: WARREN SNYDER REASON FOR APPOINTMENT 1. BACK PAIN MED MAN HISTORY OF PRESENT ILLNESS HISTORY OF PRESENT ILLNESS: HERE FOR F/U OF CHRONIC LOW BACK PAIN.RATING PAIN VAS 6/10.DESCRIBES PAIN CONTINUOUS,ACHING AND SHARP.FINDS CURRENT PAIN MEDICATION EFFECTIVE AT REDUCING PAIN AND KEEPING HIM COMFORTABLE. PAIN THE PATIENT DESCRIBES THE PAIN... FALL RISK SCREENING: SCREENING :NO FALLS IN THE PAST YEAR CURRENT MEDICATIONS TAKING EPIPEN 0.3 MG/0.3ML DEVICE USE DIRECTED INJECTION AT FIRST SIGN OF ANAPHYLAXIS AND GO TO ED. TAKING ALCOHOL PREP PAD 70 % PAD USE 1 PAD TOPICALLY WHEN TESTING BLOOD SUGAR UP TO BID (DX: 250.00) TAKING FLECAINIDE ACETATE 100 MG TABLET 1 TABLET ORALLY BID TAKING ELIQUIS 5 MG TABLET ORALLY BID TAKING ONE TOUCH ULTRA TEST STRIPS ULTRA MINI STRIPS USE 1 TEST STRIP . TO TEST BLOOD SUGAR UP TO BID (DX: 250.00) TAKING ATIVAN 2 MG TABLET 1TAB ORALLY QID PRN MDD=4 TAKING CYMBALTA 30 MG CAPSULE DELAYED RELEASE PARTICLES 1 CAPSULE ORALLY TID TAKING METFORMIN HCL 500 MG TABLET 1 TABLET WITH A MEAL ORALLY ONCE A DAY TAKING ONETOUCH TEST - STRIP DIRECTED IN VITRO BID ICD10 E11.65 TAKING ONE TOUCH DELICA 33 GAUGE LANCETS USE 1 LANCET SUBCUTANEOUSLY TO TEST BLOOD SUGAR UP TO BID. (ICD10 E11.65) TAKING CARVEDILOL 12.5 MG TABLET 1/2 TAB ORALLY DAILY TAKING HYDROMORPHONE HCL ER 8 MG TABLET ER 24 HOUR ABUSE-DETERRENT 1 TABLET ORALLY 1 TAB AT HS MDD1 TAKING HYDROCODONE-ACETAMINOPHEN 10-325 MG TABLET 1 TABLET NEEDED ORALLY Q6H PRN MDD4 TAKING EZETIMIBE 10 MG TABLET 1 TABLET ORALLY ONCE A DAY TAKING TRIAMCINOLONE ACETONIDE 0.1 % CREAM 1 APPLICATION TO AFFECTED AREA EXTERNALLY TWICE A DAY TAKING DULOXETINE HCL 30 MG CAPSULE DELAYED RELEASE PARTICLES 1 CAPSULE ORALLY ONCE A DAY NOT-TAKING ADJUSTABLE ALUMINUM CANE 1 MISCELLANEOUS DIRECTED USE NEEDED FOR GAIT STEADINESS NOT-TAKING OXYBUTYNIN CHLORIDE 5 MG TABLET 1 TABLET ORALLY TWICE A DAY NOT-TAKING VALIUM 5 MG TABLET 1 TABLET NEEDED ORALLY 1 1 HR PRE MRI MAY REPEAT 1 TAB 20MIN PRE MRI IF NEEDED MDD2 NOT-TAKING TAMSULOSIN HCL 0.4 MG CAPSULE 1 CAPSULE ORALLY ONCE A DAY NOT-TAKING CRESTOR 10 MG TABLET 1 TABLET ORALLY ONCE A DAY NOT-TAKING ROSUVASTATIN CALCIUM 10 MG TABLET 1 TABLET ORALLY ONCE A DAY NOT-TAKING LEVOFLOXACIN 250 MG TABLET 1 TABLETS ORALLY BID NOT-TAKING POTASSIUM CHLORIDE 20 MEQ PACKET 2 PACKET WITH FOOD ORALLY ONCE A DAY NOT-TAKING MIRALAX - PACKET 1 PACKET MIXED WITH 8 OUNCES OF FLUID ORALLY ONCE A DAY NOT-TAKING INDOCIN 50 MG CAPSULE 1 CAPSULE WITH FOOD ORALLY THREE TIMES A DAY FOR GOUT FLARE NEEDED NOT-TAKING COREG 12.5 MG TABLET ONE HALF ORALLY DAILY MEDICATION LIST REVIEWED AND RECONCILED WITH THE PATIENT PAST MEDICAL HISTORY LBP HLP ANXIETY H/O HEPATITIS C (PREVIOUSLY TREATED AND CURRENTLY UNDETECTABLE) H/O GOUT PAROXYSMAL A-FIB (FOLLOWED BY DR. MONTES) HYPERTENSION HYPERLIPIDEMIA ARTHRITIS DM A-FIB KIDNEY STONES UTI SEPSIS ALLERGIES ASPIRIN: UPSET STOMACH: SIDE EFFECTS BUSPAR: UNRESPONSIVENESS: ALLERGY SURGICAL HISTORY NO PERSONAL OR FHX OF SEVERE REACTION TO ANESTHESIA TRIGGER FINGER BILAT (SOS, DR. OVALLES) 2000S COLONOSCOPY (REPEAT IN 10YRS) 07/26/2012 DISKECTOMY 08/2014 TLIF AT [facility] 06/25/15 LASER LITHO WITH LEFT STENT PLACEMENT 02/01/2018 CYSTO WITH LEFT STENT REMOVAL 02/08/2018 LASER LITHO WITH LEFT STENT PLACEMENT 06/03/2018 FAMILY HISTORY FATHER: 66 YRS, CA, DIAGNOSED WITH HEART DISEASE MOTHER: 55 YRS, MULTIPLE MYELOMA, DIAGNOSED WITH CANCER SIBLINGS: ALIVE, BROTHERS (2) - OA X 2 SISTERS (2) - OA X 2 2 BROTHER(S) , 2 SISTER(S) . NO CHILDREN. SOCIAL HISTORY GENERAL: TOBACCO USE ARE YOU A:FORMER SMOKER HOW LONG HAS IT BEEN SINCE YOU LAST SMOKED?> 10 YEARS ALCOHOL SCREENING POINTS: 4, INTERPRETATION: POSITIVE. RECREATIONAL DRUG USE DRUG USE?NO CAFFEINE 2-5/DAY. SEXUAL HX HAD SEX IN THE LAST 12 MONTHS (VAGINAL, ORAL, OR ANAL)?: NO, HAVE YOU EVER HAD AN STD?: NO. HIV / HEP-C SCREENING HIV TEST OFFERED TO PATIENT:YES DATE OFFERED:01/22/2018 TEST ACCEPTED:NO HEP-C TEST OFFERED TO PATIENT:YES DATE OFFERED:01/22/2018 REASON:PATIENT DECLINED TEST ACCEPTED:NO REASON:PATIENT DECLINED BROCHURE PROVIDED TO PATIENTNO ZOROASTRIAN [id number] YAZIDI LANGUAGE LANGUAGES SPOKEN:CENTRAL AFRICAN EDUCATION LEVEL OF EDUCATION:HIGH SCHOOL LEARNING BARRIERS / SPECIAL NEEDS CHANGE FROM LAST VISIT?NO BARRIERS TO LEARNING?NO HEARING IMPAIRED?NO VISION IMPAIRED?YES COGNITIVELY IMPAIRED?NO :CORRECTIVE LENSES READINESS TO LEARN?YES LEARNING PREFERENCES?NO LEARNING CAPABILITIES PRESENT?YES EMOTIONAL BARRIERS?NO SPECIAL DEVICES?NO RESIDENT ATHLETIC TRAINER NEEDED?NO DOMESTIC VIOLENCE DO YOU FEEL SAFE IN YOUR ENVIRONMENT?YES 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 DIET: REGULAR DIET, AVOIDS "JUNK FOOD". EXERCISE: NO REGULAR EXERCISE, BUT DOES BARN CHORES. MARITAL STATUS: . OTHERS AT HOME: SPOUSE. PAIN CLINIC PFS, CLERGY, PUBLIC HEALTH REFERRALS HAS THE PATIENT BEEN EDUCATED REGARDING HIS/HER PLAN OF CARE?YES HAS THE PATIENT BEEN EDUCATED REGARDING PAIN, THE RISK FOR PAIN, THE IMPORTANCE OF EFFECTIVE PAIN MANAGEMENT, AND THE PAIN ASSESSMENT PROCESS?YES HOUSING: OWNS HOME. ADVANCE DIRECTIVE ADVANCE DIRECTIVE DISCUSSED WITH PATIENT:YES PT DOES NOT HAVE ANY ADVANCE DIRECTIVES AND HE DECLINES INFORMATION ON HCP AT THIS TIME. 05/04/18 1214 REVIEWED WITH PT. AD. HOSPITALIZATION/MAJOR DIAGNOSTIC PROCEDURE CELLULITIS/PHLEBITIS ([facility]) 1976 TRIGGER FINGER SURGERY [facility] REACTION 11/2014 [facility]-NECK AND BACK SURGERY 06/2015 UROSEPSIS, KIDNEY STONE 05/2018 REVIEW OF SYSTEMS REVIEWED BY: PROVIDER: WARREN VARMA . CONSTITUTIONAL: ANY CHANGE IN YOUR MEDICAL CONDITION? NO . CHILLS NO . FEVER NO . INFECTION: DO YOU HAVE NEW INFECTIONS? NO . DO YOU HAVE HISTORY OF MRSA? NO . MUSCULOSKELETAL: ANY NEW PATTERNS OF PAIN OR NUMBNESS? NO . GASTROENTEROLOGY: ANY NEW CHANGE IN BOWEL CONTROL? NO . GENITOURINARY: ANY NEW CHANGE IN BLADDER CONTROL? NO . IS THERE A CHANCE YOU COULD BE ? NO . HEMATOLOGY/LYMPH: DO YOU TAKE ANY BLOOD THINNERS? (FOR EXAMPLE- COUMADIN, PLAVIX, AGGRENOX, PLATEL, PRADAXA, OR XARELTO) YES . WHEN WAS YOUR LAST DOSE? DATE: 08-22-18 1500 . NEUROLOGY: HAVE YOU FALLEN IN THE PAST 12 MONTHS? NO . ANY NEW EXTREMITY NUMBNESS OR WEAKNESS? NO . CARDIOLOGY: DO YOU HAVE A PACEMAKER OR DEFIBRILLATOR? NO . RESPIRATORY: HAVE YOU BEEN SICK IN THE PAST WEEK? NO . FEVER NO . FLU LIKE SYMPTOMS? NO . COUGH NO . INTEGUMENTARY: DO YOU HAVE ANY RASHES OR OPEN SORES? DRY SKIN ON LEGS OINTMENT APPLIED . ALLERGIC/IMMUNO: ARE YOU ALLERGIC TO IV DYE? NO . ANY NEW ALLERGIES? NO . PSYCHIATRIC: DO YOU HAVE THOUGHTS OF HURTING YOURSELF OR SOMEONE ELSE? NO . ARE YOU ABUSED, NEGLECTED, OR IN AN UNSAFE ENVIRONMENT? NO . ENDOCRINOLOGY: ARE YOU DIABETIC? NO . OTHER: DO YOU NEED ANY PRESCRIPTIONS? YES HYDROCODONE AND HYDROMORPHONE . IF YES, PLEASE LIST: ____ . ANY NEW PROBLEMS WITH YOUR MEDICATIONS? NO . WHEN DID YOU LAST EAT? ____ . WHEN DID YOU LAST DRINK? ____ . WHAT DID YOU LAST DRINK? ____ . NAME OF PERSON DRIVING YOU HOME? ____ . DO YOU HAVE ANY OTHER QUESTIONS OR CONCERNS NO . VITAL SIGNS WT 230.6 LBS, HT 74 IN, BMI 29.60 INDEX, BP 148/94 MM HG, HR 78 /MIN, RR 18 /MIN, TEMP 97.2 F, OXYGEN SAT % 97%, NA INITIALS SC 11:41, REVIEWED BY: PRASANNA. EXAMINATION GENERAL EXAMINATION: GENERAL APPEARANCE:AWAKE,ALERT ,PLEAASANT . PSYCHAFFECT NORMAL . LUNGS:LUNG WIGGINS ARE CLEAR TO AUSCULTATION BILATERALLY. GOOD MOVEMENT OF AIR . HEART:S1, S2 IN A REGULAR RATE AND RHYTHM. NO SIGNIFICANT MURMURS, RUBS OR GALLOPS NOTED . MUSCULOSKELETAL:MUSCLE STRENGTH TESTING 4/5 BILATERAL LOWER EXTREMITIES . LUMBAR SACRAL SPINETRIGGER POINTS:, ELICITED WITH PALPATION OVER LEFT LUMBAR PARAVERTEBRAL MUSCLES AND RESTRICTION OF ROM IN THIS AREA IS NOTED. ASSESSMENTS MYALGIA, OTHER SITE - M79.18 (PRIMARY) TREATMENT MYALGIA, OTHER SITE REFILL HYDROMORPHONE HCL ER TABLET ER 24 HOUR ABUSE-DETERRENT, 8 MG, 1 TABLET, ORALLY, 1 TAB AT HS MDD1, 30 DAY(S), 30, REFILLS 0 REFILL HYDROCODONE-ACETAMINOPHEN TABLET, 10-325 MG, 1 TABLET NEEDED, ORALLY, Q6H PRN MDD4, 30 DAY(S), 120, REFILLS 0 NOTES: TPI LEFT LOW BACK, ISTOP REGISTRY REVIEWED AND DEMONSTRATES COMPLLIANCE. (REF #[id number] ) BRINGS IN MEDICATIONS WHICH IS APPROPRIATE FOR WHAT WAS DISPENSED. RECENT URINE TOXICOLOGY REVIEWED. NO UNAUTHORIZED MEDICATIONS. NO ILLICIT SUBSTANCES AND PRESCRIBED MEDICATIONS WERE PRESENT. , RISKS AND BENEFITS OF NARCOTIC/OPIOD MEDICATIONS WERE REVIEWED WITH PATIENT - THIS INCLUDES BUT IS NOT LIMITED TO RISK OF DEPENDANCE/DEVELOPMENT OF ADDICTION, MOOD DISTURBANCE AND DEPRESSION, OSTEOPOROSIS, HORMONAL AND LABIDAL CHANGES, RESPIRATORY DEPRESSION AND . PATIENT IS ADVISED NOT TO DRIVE OR DRINK ALCOHOL WHILE ON THESE MEDICATIONS. PREVENTIVE MEDICINE PAIN CLINIC TEACHING: PROCEDURE TEACHING PT GIVEN WRITTEN AND VERBAL EDUCATION ON TRIGGER POINT INJECTIONS. PT ALSO GIVEN WRITTEN AND VERBAL PRE-PROCEDURE INSTRUCTIONS. PT INSTRUCTED TO HOLD METFORMIN MORNING OF PROCEDURE. PT VERBALIZES UNDERSTANDING OF ALL EDUCATION AND PRE-PROCEDURE INSTRUCTIONS, JEFFREY ESCAMILLA 08/23/2018 12:31:44 PM > . PROCEDURE CODES FA211 ESTABILISHED PATIENT FORMERLY [facility] CHARGE DISPOSITION & COMMUNICATION FOLLOW UP SEND STOP ELOQIS TO [facility] FOR FUTURE INJECTIONS (REASON: TPI LEFT LOW BACK) ELECTRONICALLY SIGNED BY KOJO CHAPIN ON 09/07/2018 AT 05:13 PM EST DISCLAIMER : THIS IS A VISIT SUMMARY EXTRACTED FROM THE [employer] CHART. IT IS NOT A COPY OF THE [employer] PROGRESS NOTE. NOE
== END ==
LOC: M PAIN 11:30
PROVIDERS: ATTEND Nurse Practitioner Family
DX: M79.18 Myalgia, other site (principal); F41.9 Anxiety disorder, unspecified; I48.91 Unspecified atrial fibrillation; I10 Essential (primary) hypertension; E78.2 Mixed hyperlipidemia; M19.90 Unspecified osteoarthritis, unspecified site; Z86.39 Personal history of other endocrine, nutritional and metabolic disease; Z87.891 Personal history of nicotine dependence; Z87.39 Personal history of other diseases of the musculoskeletal system and connective tissue; Z88.6 Allergy status to analgesic agent; Z88.8 Allergy status to other drugs, medicaments and biological substances; Z79.01 Long term (current) use of anticoagulants; Z79.84 Long term (current) use of oral hypoglycemic drugs; Z79.891 Long term (current) use of opiate analgesic; Z79.899 Other long term (current) drug therapy

== ENCOUNTER → 2018-09-09 | Outpatient (REF) | payer BC | LOC: M SFHCLERA 13:11 | PROVIDERS: ATTEND Nurse Practitioner Family | DX: Z87.442 Personal history of urinary calculi (principal) ==

== ENCOUNTER → 2018-10-12 | Outpatient (CLI) | payer BC ==
[~2018-10-12] MED LIST changes: +BUPIVACAINE HCL 0.25% 10 ML VIAL As Ordered ONE; +BUPIVACAINE HCL 0.25% 30 ML VIAL As Ordered ONE; +TRIAMCINOLONE ACETONIDE SUSP 40 MG/ML VIAL (J3301) As Ordered ONE; +diazePAM 5 MG TAB As Ordered ONE; +oxyCODONE 5MG TAB As Ordered ONE
--- NOTE | 2018-10-24 23:47 | ECWPNPC ---
PATIENT NAME: TAMIR JASSO : 1955 GENDER: MALE VISIT DATE: 10/12/2018 DISCHARGE DATE: 10/12/18 1322 VISIT LOCKED DATE TIME: PHYSICIAN: ROD SERNA MD RESOURCE: ROD SERNA MD REASON FOR APPOINTMENT 1. TPI LOW BACK HISTORY OF PRESENT ILLNESS HISTORY OF PRESENT ILLNESS: PAIN THE PATIENT DESCRIBES THE PAIN... FALL RISK SCREENING: SCREENING :NO FALLS REPORTED IN THE LAST YEAR CURRENT MEDICATIONS TAKING EPIPEN 0.3 MG/0.3ML DEVICE USE DIRECTED INJECTION AT FIRST SIGN OF ANAPHYLAXIS AND GO TO ED. TAKING ALCOHOL PREP PAD 70 % PAD USE 1 PAD TOPICALLY WHEN TESTING BLOOD SUGAR UP TO BID (DX: 250.00) TAKING FLECAINIDE ACETATE 100 MG TABLET 1 TABLET ORALLY BID, NOTES: 10-12-18799 TAKING ELIQUIS 5 MG TABLET ORALLY BID, NOTES: 10-09-18 08 TAKING ONE TOUCH ULTRA TEST STRIPS ULTRA MINI STRIPS USE 1 TEST STRIP . TO TEST BLOOD SUGAR UP TO BID (DX: 250.00) TAKING ATIVAN 2 MG TABLET 1TAB ORALLY QID PRN MDD=4, NOTES: 10-11-18 09 TAKING CARVEDILOL 12.5 MG TABLET 1/2 TAB ORALLY DAILY, NOTES: 10-12-18 08 TAKING EZETIMIBE 10 MG TABLET 1 TABLET ORALLY ONCE A DAY, NOTES: 10-11-18 1400 TAKING DULOXETINE HCL 30 MG CAPSULE DELAYED RELEASE PARTICLES 1 CAPSULE ORALLY THREE TIMES DAILY, NOTES: 10-11-18 2100 TAKING OXYBUTYNIN CHLORIDE ER 10 MG TABLET EXTENDED RELEASE 24 HOUR 1 TABLET ORALLY ONCE A DAY, NOTES: 10-11-18 1400 TAKING DILTIAZEM HCL 30 MG TABLET 1 TABLET BEFORE MEALS ORALLY THREE TIMES A DAY, NOTES: 10-11-18 09 TAKING TRIAMCINOLONE ACETONIDE 0.1 % CREAM 1 APPLICATION TO AFFECTED AREA EXTERNALLY TWICE A DAY, NOTES: NOT NOW TAKING HYDROCODONE-ACETAMINOPHEN 10-325 MG TABLET 1 TABLET NEEDED ORALLY Q6H PRN MDD4, NOTES: 10-12-18 07 TAKING METFORMIN HCL 500 MG TABLET 1 TABLET WITH A MEAL ORALLY ONCE A DAY, NOTES: 10-11-18 2100 TAKING PRAZOSIN HCL 1 MG CAPSULE 1 CAPSULE AT BEDTIME ORALLY ONCE A DAY, NOTES: HAS NOT STARTED YET TAKING TAMSULOSIN HCL 0.4 MG CAPSULE 1 CAPSULE ORALLY ONCE A DAY NOT-TAKING HYDROMORPHONE HCL ER 8 MG TABLET ER 24 HOUR ABUSE-DETERRENT 1 TABLET ORALLY 1 TAB AT BEDTIME MDD1 NOT-TAKING ONETOUCH TEST - STRIP DIRECTED IN VITRO BID ICD10 E11.65 NOT-TAKING ZALEPLON 10 MG CAPSULE 1 CAPSULE AT BEDTIME NEEDED ORALLY ONCE A DAY, NOTES: HAS NOT STARTED YET NOT-TAKING CYMBALTA 30 MG CAPSULE DELAYED RELEASE PARTICLES 1 CAPSULE ORALLY TID NOT-TAKING OXYBUTYNIN CHLORIDE 5 MG TABLET 1 TABLET ORALLY TWICE A DAY NOT-TAKING VALIUM 5 MG TABLET 1 TABLET NEEDED ORALLY 1 1 HR PRE MRI MAY REPEAT 1 TAB 20MIN PRE MRI IF NEEDED MDD2 NOT-TAKING CRESTOR 10 MG TABLET 1 TABLET ORALLY ONCE A DAY NOT-TAKING ROSUVASTATIN CALCIUM 10 MG TABLET 1 TABLET ORALLY ONCE A DAY NOT-TAKING LEVOFLOXACIN 250 MG TABLET 1 TABLETS ORALLY BID NOT-TAKING POTASSIUM CHLORIDE 20 MEQ PACKET 2 PACKET WITH FOOD ORALLY ONCE A DAY NOT-TAKING MIRALAX - PACKET 1 PACKET MIXED WITH 8 OUNCES OF FLUID ORALLY ONCE A DAY NOT-TAKING INDOCIN 50 MG CAPSULE 1 CAPSULE WITH FOOD ORALLY THREE TIMES A DAY FOR GOUT FLARE NEEDED NOT-TAKING COREG 12.5 MG TABLET ONE HALF ORALLY DAILY UNKNOWN ONE TOUCH DELICA 33 GAUGE LANCETS USE 1 LANCET SUBCUTANEOUSLY TO TEST BLOOD SUGAR UP TO BID. (ICD10 E11.65) UNKNOWN ADJUSTABLE ALUMINUM CANE 1 MISCELLANEOUS DIRECTED USE NEEDED FOR GAIT STEADINESS MEDICATION LIST REVIEWED AND RECONCILED WITH THE PATIENT PAST MEDICAL HISTORY LBP HLP ANXIETY H/O HEPATITIS C (PREVIOUSLY TREATED AND CURRENTLY UNDETECTABLE) H/O GOUT PAROXYSMAL A-FIB (FOLLOWED BY DR. MONTES) HYPERTENSION HYPERLIPIDEMIA ARTHRITIS DM A-FIB KIDNEY STONES UTI SEPSIS ALLERGIES ASPIRIN: UPSET STOMACH - SIDE EFFECTS BUSPAR: UNRESPONSIVENESS - ALLERGY SURGICAL HISTORY NO PERSONAL OR FHX OF SEVERE REACTION TO ANESTHESIA TRIGGER FINGER BILAT (SOS, DR. OVALLES) 2000S COLONOSCOPY (REPEAT IN 10YRS) 07/26/2012 DISKECTOMY 08/2014 TLIF AT [facility] 06/25/15 LASER LITHO WITH LEFT STENT PLACEMENT 02/01/2018 CYSTO WITH LEFT STENT REMOVAL 02/08/2018 LASER LITHO WITH LEFT STENT PLACEMENT 06/03/2018 URETEROSCOPY W/ LASER LITHOTRIPSY 07/26/2018 HOSPITALIZATION/MAJOR DIAGNOSTIC PROCEDURE CELLULITIS/PHLEBITIS ([facility] [place]) 1976 TRIGGER FINGER SURGERY [facility] REACTION 11/2014 [facility]-NECK AND BACK SURGERY 06/2015 UROSEPSIS, KIDNEY STONE 05/2018 REVIEW OF SYSTEMS REVIEWED BY: PROVIDER: . CONSTITUTIONAL: ANY CHANGE IN YOUR MEDICAL CONDITION? NO . CHILLS NO . FEVER NO . INFECTION: DO YOU HAVE NEW INFECTIONS? NO . DO YOU HAVE HISTORY OF MRSA? NO . MUSCULOSKELETAL: ANY NEW PATTERNS OF PAIN OR NUMBNESS? NO . GASTROENTEROLOGY: ANY NEW CHANGE IN BOWEL CONTROL? NO . GENITOURINARY: ANY NEW CHANGE IN BLADDER CONTROL? YES . IS THERE A CHANCE YOU COULD BE ? NO . HEMATOLOGY/LYMPH: DO YOU TAKE ANY BLOOD THINNERS? (FOR EXAMPLE- COUMADIN, PLAVIX, AGGRENOX, PLATEL, PRADAXA, OR XARELTO) NO . WHEN WAS YOUR LAST DOSE? DATE: TIME: . NEUROLOGY: HAVE YOU FALLEN IN THE PAST 12 MONTHS? NO . ANY NEW EXTREMITY NUMBNESS OR WEAKNESS? NO . CARDIOLOGY: DO YOU HAVE A PACEMAKER OR DEFIBRILLATOR? NO . RESPIRATORY: HAVE YOU BEEN SICK IN THE PAST WEEK? NO . FEVER NO . FLU LIKE SYMPTOMS? NO . COUGH NO . INTEGUMENTARY: DO YOU HAVE ANY RASHES OR OPEN SORES? NO . ALLERGIC/IMMUNO: ARE YOU ALLERGIC TO IV DYE? NO . ANY NEW ALLERGIES? NO . PSYCHIATRIC: DO YOU HAVE THOUGHTS OF HURTING YOURSELF OR SOMEONE ELSE? NO . ARE YOU ABUSED, NEGLECTED, OR IN AN UNSAFE ENVIRONMENT? NO . ENDOCRINOLOGY: ARE YOU DIABETIC? NO . OTHER: DO YOU NEED ANY PRESCRIPTIONS? NO . IF YES, PLEASE LIST: ____ . ANY NEW PROBLEMS WITH YOUR MEDICATIONS? NO . WHEN DID YOU LAST EAT? ____-- . WHEN DID YOU LAST DRINK? LAST NIGHT . WHAT DID YOU LAST DRINK? ____ . NAME OF PERSON DRIVING YOU HOME? ____WIFE CHELSI . DO YOU HAVE ANY OTHER QUESTIONS OR CONCERNS NO . VITAL SIGNS WT 241.2 LBS, HT 74 IN, BMI 30.96 INDEX, BP 144/93 MM HG, HR 64 /MIN, RR 18 /MIN, TEMP 97.4 F, OXYGEN SAT % 97%, SAFE IN ENV? (Y/N) YES, NA INITIALS AW 1031, REVIEWED BY: KG. ASSESSMENTS MYALGIA, OTHER SITE - M79.18 (PRIMARY) PROCEDURES PN TRIGGER POINT INJECTION WITH STEROIDS PRE PROCEDURE DIAGNOSIS 1. MYALGIA 2. PAIN AT BILATERAL LOW BACK AREA POST PROCEDURE DIAGNOSIS 1. MYALGIA 2. PAIN AT BILATERAL LOW BACK AREA PROCEDURE TRIGGER POINT INJECTION AT BILATERAL LOW BACK AREA SURGEON DR. ROD SERNA DIRECTOR OF SALES SUPPORT NONE ANESTHESIA LOCAL PRE PROCEDURE NOTE THE PATIENT HAS A HISTORY OF CHRONIC PAIN AT THE RIGHT AND LEFT LOW BACK AREA. I EVALUATE THE PATIENT AND REVIEWED THE CHART. THERE IS EVIDENCE OF BANDS OF TISSUE WITH RESTRICTION OF MOVEMENT AND PRESENCE OF TRIGGER POINT AT THE AFFECTED AREA. I WENT OVER THE RISKS, ALTERNATIVES, AND BENEFITS ASSOCIATED WITH THIS PROCEDURE. THE PATIENT WOULD LIKE TO PROCEED AND GIVE CONSENT TO PERFORMED THE PROCEDURE. THE PATIENT DENIES UNEXPLAINABLE WEIGHT LOSS, FEVER, CHILLS, OR NEW CHANGES IN URINARY OR BOWEL CONTROL DESCRIPTION OF PROCEDURE THE PATIENT WAS BROUGHT TO THE PROCEDURE ROOM AND PLACED IN THE SITTING POSITION. THE AREA WAS CLEANED WITH ALCOHOL. THE PROCEDURE WAS DONE USING ASEPTIC STERILE TECHNIQUE. I CHECKED LATERALITY AND THE LEVEL WHERE THE PROCEDURE WAS GOING TO BE PERFORMED WITH THE PATIENT AND THE SUPPORTING STAFF AT THE MOMENT OF THE TIME OUT IN THE PROCEDURE ROOM. USING A 25-GAUGE NEEDLE, TRIGGER POINTS WERE INJECTED AT THE RIGHT AND LEFT LOW BACK AREA WITH A TOTAL OF 40 ML OF BUPIVACAINE 0.25% AND KENALOG 40 MG. THERE WAS NO EVIDENCE OF BLOOD, PARESTHESIA OR CEREBROSPINAL FLUID DURING THE PROCEDURE. THE PATIENT WAS SENT TO THE RECOVERY ROOM. THE PATIENT WAS MOVING THE EXTREMITIES AND DOING WELL. THERE WAS NO COMPLICATION DURING THE PROCEDURE POST PROCEDURE NOTE THE PATIENT WILL BE SEEN IN A FOLLOW UP IN THE NEXT FEW WEEKS. INSTRUCTIONS WERE GIVEN, QUESTIONS WERE ANSWERED, AND THE PATIENT EXPRESSED UNDERSTANDING AND AGREES WITH THE PLAN. I, BHAVIK BROWNLEE, DOCUMENTED THE ABOVE INFORMATION ACTING A SCRIBE FOR DR. SERNA. I HAVE REVIEWED THE ABOVE DOCUMENT, WRITTEN BY BHAVIK REYNOLDS AND I VERIFY THAT IT IS ACCURATE. PROCEDURE CODES 36597 INJ TRIGGER POINT /2 [facility] [facility] [place] DIS[place] & COMMUNICATION FOLLOW UP 3 WEEKS ELECTRONICALLY SIGNED BY ROD SERNA MD, MD ON 10/24/2018 AT 08:57 PM EDT DISCLAIMER : THIS IS A VISIT SUMMARY EXTRACTED FROM THE [employer] CHART. IT IS NOT A COPY OF THE [employer] PROGRESS NOTE. [facility]
== END ==
LOC: M PAIN 11:00
PROVIDERS: ATTEND Anesthesiology
DX: M79.18 Myalgia, other site (principal); M54.5 Low back pain; E11.9 Type 2 diabetes mellitus without complications; F41.9 Anxiety disorder, unspecified; I48.0 Paroxysmal atrial fibrillation; I10 Essential (primary) hypertension; E78.5 Hyperlipidemia, unspecified; M19.90 Unspecified osteoarthritis, unspecified site; Z79.01 Long term (current) use of anticoagulants; Z79.84 Long term (current) use of oral hypoglycemic drugs; Z79.899 Other long term (current) drug therapy; Z88.6 Allergy status to analgesic agent; Z88.8 Allergy status to other drugs, medicaments and biological substances; Z87.39 Personal history of other diseases of the musculoskeletal system and connective tissue; Z86.19 Personal history of other infectious and parasitic diseases
CPT/HCPCS: 20552; J3301

== ENCOUNTER → 2018-11-08 | Outpatient (REF) | payer BC ==
[~2018-11-08] MED LIST changes: -BUPIVACAINE HCL 0.25% 10 ML VIAL As Ordered ONE; -BUPIVACAINE HCL 0.25% 30 ML VIAL As Ordered ONE; -TRIAMCINOLONE ACETONIDE SUSP 40 MG/ML VIAL (J3301) As Ordered ONE; -diazePAM 5 MG TAB As Ordered ONE; -oxyCODONE 5MG TAB As Ordered ONE
== END ==
LOC: M SFHCPLAZ 17:27
PROVIDERS: ATTEND Dermatology
DX: L57.0 Actinic keratosis (principal); L82.1 Other seborrheic keratosis

== ENCOUNTER → 2018-11-17 | Outpatient (CLI) | payer BC | LOC: M LAB 11:35 | PROVIDERS: ATTEND Nurse Practitioner Family | DX: M79.18 Myalgia, other site (principal) ==

== ENCOUNTER → 2019-02-01 | Outpatient (REF) | payer BC ==
[~2019-02-01] MED LIST changes: -DULO1CAP2 PO; -DULO1CAP3 PO; +DULO1CAP5 PO; +DULO1CAP6 PO; -ROSU10TA5 PO; +ROSU10TA6 PO
== END ==
LOC: M SFHCPLAZ 09:42
PROVIDERS: ATTEND Dermatology
DX: D23.4 Other benign neoplasm of skin of scalp and neck (principal)

== ENCOUNTER → 2019-03-10 | Outpatient (CLI) | payer BC ==
[~2019-03-10] MED LIST changes: +BUPIVACAINE HCL 0.25% 30 ML VIAL As Ordered ONE; +ISOVUE-M 200 41% 20ML VIAL (Q9966) As Ordered ONE; +LIDOCAINE 1% SDV INJ 30 ML VIAL As Ordered ONE; +METF-791 PO; -METF500T4 PO; -MORP-38 PO; +MORP-69 PO; +TRIAMCINOLONE ACETONIDE SUSP 40 MG/ML VIAL (J3301) As Ordered ONE; +diazePAM 5 MG TAB As Ordered ONE; +methylPREDNISolone SUSP 40 MG/ML (DEPO-medrol) VIAL (J1030) As Ordered ONE; +oxyCODONE 5MG TAB As Ordered ONE
--- NOTE | 2019-03-10 14:33 | REP ---
Partial lumbar spine series: Three views . History: Injection procedure for pain. 11 seconds of fluoroscopy time is reported. Findings: A sequence of three fluoroscopically obtained last image hold procedural spot radiographs of the lumbar spine document needle position and contrast injection associated with injection procedure. Electronically Signed by Dae Bella MD 03/10/2019 02:25 P
--- NOTE | 2019-03-18 02:08 | ECWPNPC ---
PATIENT NAME: TAMIR JASSO : 1955 GENDER: MALE VISIT DATE: 03/10/2019 DISCHARGE DATE: 03/10/19 1448 VISIT LOCKED DATE TIME: PHYSICIAN: ROD SERNA MD RESOURCE: ROD SERNA MD REASON FOR APPOINTMENT 1. BILAT. L4/5-L5/S1 LFBT HISTORY OF PRESENT ILLNESS HISTORY OF PRESENT ILLNESS: PAIN THE PATIENT DESCRIBES THE PAIN... FALL RISK SCREENING: SCREENING :NO FALLS REPORTED IN THE LAST YEAR CURRENT MEDICATIONS TAKING EPIPEN 0.3 MG/0.3ML DEVICE USE DIRECTED INJECTION AT FIRST SIGN OF ANAPHYLAXIS AND GO TO ED. TAKING ALCOHOL PREP PAD 70 % PAD USE 1 PAD TOPICALLY WHEN TESTING BLOOD SUGAR UP TO BID (DX: 250.00) TAKING FLECAINIDE ACETATE 100 MG TABLET 1 TABLET ORALLY BID TAKING ELIQUIS 5 MG TABLET ORALLY BID, NOTES: 03/06/19@2030 TAKING ONE TOUCH ULTRA TEST STRIPS ULTRA MINI STRIPS USE 1 TEST STRIP . TO TEST BLOOD SUGAR UP TO BID (DX: 250.00) TAKING ATIVAN 2 MG TABLET 1TAB ORALLY QID PRN MDD=4, NOTES: 100@ TAKING CARVEDILOL 12.5 MG TABLET 1/2 TAB ORALLY DAILY, NOTES: 0600 TAKING DULOXETINE HCL 30 MG CAPSULE DELAYED RELEASE PARTICLES 1 CAPSULE ORALLY THREE TIMES DAILY TAKING DILTIAZEM HCL 30 MG TABLET 1 TABLET BEFORE MEALS ORALLY THREE TIMES A DAY, NOTES: 0600 TAKING METFORMIN HCL 500 MG TABLET 1 TABLET WITH A MEAL ORALLY ONCE A DAY, NOTES: 03/08/19 TAKING ONE TOUCH DELICA 33 GAUGE LANCETS USE 1 LANCET SUBCUTANEOUSLY TO TEST BLOOD SUGAR UP TO BID. (ICD10 E11.65) TAKING EZETIMIBE 10 MG TABLET 1 TABLET ORALLY ONCE A DAY TAKING TOLTERODINE TARTRATE ER 4 MG CAPSULE EXTENDED RELEASE 24 HOUR 1 CAPSULE ORALLY ONCE A DAY TAKING HYDROCODONE-ACETAMINOPHEN 10-325 MG TABLET 1 TABLET NEEDED ORALLY EVERY 6 HRS PRN MDD4, NOTES: 0600 TAKING ONETOUCH TEST - STRIP DIRECTED IN VITRO BID ICD10 E11.65 TAKING INDOCIN 50 MG CAPSULE 1 CAPSULE WITH FOOD ORALLY THREE TIMES A DAY FOR GOUT FLARE NEEDED DISCONTINUED TRIAMCINOLONE ACETONIDE 0.1 % CREAM 1 APPLICATION TO AFFECTED AREA EXTERNALLY TWICE A DAY DISCONTINUED PRAZOSIN HCL 1 MG CAPSULE 1 CAPSULE AT BEDTIME ORALLY ONCE A DAY DISCONTINUED TAMSULOSIN HCL 0.4 MG CAPSULE 1 CAPSULE ORALLY ONCE A DAY DISCONTINUED ADJUSTABLE ALUMINUM CANE 1 MISCELLANEOUS DIRECTED USE NEEDED FOR GAIT STEADINESS DISCONTINUED HYDROMORPHONE HCL ER 8 MG TABLET ER 24 HOUR ABUSE-DETERRENT 1 TABLET ORALLY 1 TAB AT BEDTIME MDD1 DISCONTINUED ZALEPLON 10 MG CAPSULE 1 CAPSULE AT BEDTIME NEEDED ORALLY ONCE A DAY, NOTES: HAS NOT STARTED YET DISCONTINUED CYMBALTA 30 MG CAPSULE DELAYED RELEASE PARTICLES 1 CAPSULE ORALLY TID DISCONTINUED OXYBUTYNIN CHLORIDE 5 MG TABLET 1 TABLET ORALLY TWICE A DAY DISCONTINUED VALIUM 5 MG TABLET 1 TABLET NEEDED ORALLY 1 1 HR PRE MRI MAY REPEAT 1 TAB 20MIN PRE MRI IF NEEDED MDD2 DISCONTINUED CRESTOR 10 MG TABLET 1 TABLET ORALLY ONCE A DAY DISCONTINUED ROSUVASTATIN CALCIUM 10 MG TABLET 1 TABLET ORALLY ONCE A DAY DISCONTINUED LEVOFLOXACIN 250 MG TABLET 1 TABLETS ORALLY BID DISCONTINUED POTASSIUM CHLORIDE 20 MEQ PACKET 2 PACKET WITH FOOD ORALLY ONCE A DAY DISCONTINUED MIRALAX - PACKET 1 PACKET MIXED WITH 8 OUNCES OF FLUID ORALLY ONCE A DAY DISCONTINUED COREG 12.5 MG TABLET ONE HALF ORALLY DAILY MEDICATION LIST REVIEWED AND RECONCILED WITH THE PATIENT PAST MEDICAL HISTORY LBP HLP ANXIETY H/O HEPATITIS C (PREVIOUSLY TREATED AND CURRENTLY UNDETECTABLE) H/O GOUT PAROXYSMAL A-FIB (FOLLOWED BY DR. MONTES) HYPERTENSION HYPERLIPIDEMIA ARTHRITIS DM A-FIB KIDNEY STONES UTI SEPSIS OAB ALLERGIES ASPIRIN: UPSET STOMACH - SIDE EFFECTS BUSPAR: UNRESPONSIVENESS BEE STING: ALLERGIC REACTION - ALLERGY SURGICAL HISTORY NO PERSONAL OR FHX OF SEVERE REACTION TO ANESTHESIA TRIGGER FINGER BILAT (SOS, DR. OVALLES) 2000S COLONOSCOPY (REPEAT IN 10YRS) 07/26/2012 DISKECTOMY 08/2014 TLIF AT [facility] 06/25/15 LASER LITHO WITH LEFT STENT PLACEMENT 02/01/2018 CYSTO WITH LEFT STENT REMOVAL 02/08/2018 LASER LITHO WITH LEFT STENT PLACEMENT 06/03/2018 URETEROSCOPY W/ LASER LITHOTRIPSY 07/26/2018 NECK SURGERY/CYST REMOVAL 02/02/2019 FAMILY HISTORY FATHER: 66 YRS, [place], DIAGNOSED WITH HEART DISEASE MOTHER: 55 YRS, MULTIPLE MYELOMA, CANCER SIBLINGS: ALIVE, BROTHERS (2) - OA X 2 SISTERS (2) - OA X 2 2 BROTHER(S) , 2 SISTER(S) . NO CHILDREN. DENIES FAMILY HX OF PANCREATIC CANCER, MOTHER OF MELANOMASISTER HAS PULMONARY FIBROSIS. SOCIAL HISTORY GENERAL: TOBACCO USE ARE YOU A:FORMER SMOKER HOW LONG HAS IT BEEN SINCE YOU LAST SMOKED?> 10 YEARS HIV / HEP-C SCREENING HIV TEST OFFERED TO PATIENT:YES DATE OFFERED:01/22/2018 TEST ACCEPTED:NO HEP-C TEST OFFERED TO PATIENT:YES DATE OFFERED:01/22/2018 REASON:PATIENT DECLINED TEST ACCEPTED:NO REASON:PATIENT DECLINED BROCHURE PROVIDED TO PATIENTNO OTHERS AT HOME: SPOUSE. HOUSING: OWNS HOME. EDUCATION LEVEL OF EDUCATION:HIGH SCHOOL DIET: REGULAR DIET, AVOIDS "JUNK FOOD". LANGUAGE LANGUAGES SPOKEN:NEPALI DOMESTIC VIOLENCE DO YOU FEEL SAFE IN YOUR ENVIRONMENT?YES RECREATIONAL DRUG USE DRUG USE?NO EXERCISE: NO REGULAR EXERCISE, BUT DOES BARN CHORES. LEARNING BARRIERS / SPECIAL NEEDS CHANGE FROM LAST VISIT?NO 02/15/2019 BARRIERS TO LEARNING?NO HEARING IMPAIRED?NO VISION IMPAIRED?YES COGNITIVELY IMPAIRED?NO :CORRECTIVE LENSES READINESS TO LEARN?YES LEARNING PREFERENCES?NO LEARNING CAPABILITIES PRESENT?YES EMOTIONAL BARRIERS?NO SPECIAL DEVICES?NO ARMATURE WINDER AUTOMOTIVE NEEDED?NO PAIN CLINIC PFS, CLERGY, PUBLIC HEALTH REFERRALS WAS THE PROVIDER NOTIFIED OF ANY PERTINENT INFO?YES HAS THE PATIENT BEEN EDUCATED REGARDING HIS/HER PLAN OF CARE?YES HAS THE PATIENT BEEN EDUCATED REGARDING PAIN, THE RISK FOR PAIN, THE IMPORTANCE OF EFFECTIVE PAIN MANAGEMENT, AND THE PAIN ASSESSMENT PROCESS?YES LATEX QUESTIONNAIRE LATEX ALLERGY : HAVE YOU EVER DEVELOPED ANY TYPE OF REACTION AFTER HANDLING LATEX PRODUCTS SUCH RUBBER GLOVES, CONDOMS, DIAPHRAGMS, BALLOONS, SOCKS, OR UNDERWEAR?NO LATEX ALLERGY : HAVE YOU EVER DEVELOPED ANY TYPE OF REACTION DURING OR AFTER DENTAL APPOINTMENT, VAGINAL/RECTAL EXAMINATION, SURGICAL PROCEDURE, OR ANY OTHER EXPOSURE?NO LATEX RISK : HAVE YOU EVER HAD ANY DIFFICULTY BREATHING OR HIVES AFTER EATING OR HANDLING ANY FRUITS, OR VEGETABLES; SUCH KIWI, BANANAS, STONE FRUITS, OR CHESTNUTSNO LATEX RISK : DO YOU HAVE A PREVIOUS PERSONAL HISTORY OF MORE THAN NINE SURGERIES, SPINA BIFIDA, OR REPEATED CATHERIZATIONS? NO LATEX RISK : ARE YOU FREQUENTLY EXPOSED TO LATEX PRODUCTS IN YOUR OCCUPATION?NO DATE ASKED : 03/10/2019 CAFFEINE 2-5/DAY. ADVANCE DIRECTIVE ADVANCE DIRECTIVE DISCUSSED WITH PATIENT:YES PT DOES NOT HAVE ANY ADVANCE DIRECTIVES AND HE DECLINES INFORMATION ON HCP AT THIS TIME. JEW [id number] YAZIDI MARITAL STATUS: . ALCOHOL SCREENING POINTS: 4, INTERPRETATION: POSITIVE. 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 SEXUAL HX HAD SEX IN THE LAST 12 MONTHS (VAGINAL, ORAL, OR ANAL)?: NO, HAVE YOU EVER HAD AN STD?: NO. 05/04/18 1214 REVIEWED WITH PT. AD. HOSPITALIZATION/MAJOR DIAGNOSTIC PROCEDURE CELLULITIS/[place]LEBITIS ([facility]) 1975 TRIGGER FINGER SURGERY [facility]-BUSPAR REACTION 11/2014 [facility]-NECK AND BACK SURGERY 06/2015 UROSEPSIS, KIDNEY STONE 05/2018 REVIEW OF SYSTEMS REVIEWED BY: PROVIDER: . CONSTITUTIONAL: ANY CHANGE IN YOUR MEDICAL CONDITION? NO . CHILLS NO . FEVER NO . INFECTION: DO YOU HAVE NEW INFECTIONS? NO . DO YOU HAVE HISTORY OF MRSA? NO . MUSCULOSKELETAL: ANY NEW PATTERNS OF PAIN OR NUMBNESS? YES - LEFT HAND TINGLING, HAS OCCURRED SEVERAL TIMES . GASTROENTEROLOGY: ANY NEW CHANGE IN BOWEL CONTROL? NO . GENITOURINARY: ANY NEW CHANGE IN BLADDER CONTROL? NO . IS THERE A CHANCE YOU COULD BE ? NO . HEMATOLOGY/LYMPH: DO YOU TAKE ANY BLOOD THINNERS? (FOR EXAMPLE- COUMADIN, PLAVIX, AGGRENOX, PLATEL, PRADAXA, OR XARELTO) NO . WHEN WAS YOUR LAST DOSE? DATE: [facility] 03-06-19TIME: 2029 . NEUROLOGY: HAVE YOU FALLEN IN THE PAST 12 MONTHS? NO . ANY NEW EXTREMITY NUMBNESS OR WEAKNESS? NO . CARDIOLOGY: DO YOU HAVE A PACEMAKER OR DEFIBRILLATOR? NO . RESPIRATORY: HAVE YOU BEEN SICK IN THE PAST WEEK? NO . FEVER NO . FLU LIKE SYMPTOMS? NO . COUGH NO . INTEGUMENTARY: DO YOU HAVE ANY RASHES OR OPEN SORES? NO . ALLERGIC/IMMUNO: ARE YOU ALLERGIC TO IV DYE? NO . ANY NEW ALLERGIES? NO . PSYCHIATRIC: DO YOU HAVE THOUGHTS OF HURTING YOURSELF OR SOMEONE ELSE? NO . ARE YOU ABUSED, NEGLECTED, OR IN AN UNSAFE ENVIRONMENT? NO . ENDOCRINOLOGY: ARE YOU DIABETIC? NO . OTHER: DO YOU NEED ANY PRESCRIPTIONS? NO . IF YES, PLEASE LIST: ____ . ANY NEW PROBLEMS WITH YOUR MEDICATIONS? NO . WHEN DID YOU LAST EAT? ____03/09/19 . WHEN DID YOU LAST DRINK? ____06 . WHAT DID YOU LAST DRINK? ____WATER WITH MEDS . NAME OF PERSON DRIVING YOU HOME? ____CHELSI JASSO . DO YOU HAVE ANY OTHER QUESTIONS OR CONCERNS NO . VITAL SIGNS WT 242 LBS, HT 74 IN, BMI 31.07 INDEX, BP 138/91 MM HG, HR 73 /MIN, RR 18 /MIN, TEMP 97.2 F, OXYGEN SAT % 96%, SAFE IN ENV? (Y/N) YES, NA INITIALS SC 10:45, REVIEWED BY: VD. ASSESSMENTS SPONDYLOSIS OF LUMBAR REGION WITHOUT MYELOPATHY OR RADICULOPATHY - M47.816 (PRIMARY) LUMBOSACRAL SPONDYLOSIS WITHOUT MYELOPATHY - M47.817 TREATMENT LUMBOSACRAL SPONDYLOSIS WITHOUT MYELOPATHY SMC FACET BLOCK (PAIN)[id number] PROCEDURES PN LUMBAR FACET BLOCK THERAPEUTIC PRE PROCEDURE DIAGNOSIS LUMBAR SPONDYLOSIS, LUMBOSACRAL SPONDYLOSIS POST PROCEDURE DIAGNOSIS LUMBAR SPONDYLOSIS, LUMBOSACRAL SPONDYLOSIS PROCEDURE BILATERAL L4 - L5, L5 - S1 LUMBAR FACET THERAPEUTIC BLOCK SURGEON DR. ROD SERNA MAITRE D NONE ANESTHESIA LOCAL PRE PROCEDURE NOTE THE PATIENT HAS A HISTORY OF CHRONIC LOW BACK PAIN. I EVALUATED THE PATIENT AND REVIEWED THE CHART. I WENT OVER THE RISKS, ALTERNATIVES, AND BENEFITS ASSOCIATED WITH THIS PROCEDURE. THE PATIENT WOULD LIKE TO PROCEED AND GIVES CONSENT TO PERFORM THE PROCEDURE. THE PATIENT DENIES UNEXPLAINABLE WEIGHT LOSS, FEVER, CHILLS, OR NEW CHANGES IN URINARY OR BOWEL CONTROL DESCRIPTION OF PROCEDURE THE PATIENT WAS BROUGHT TO THE PROCEDURE ROOM AND PLACED IN THE PRONE POSITION. THE LUMBOSACRAL AREA WAS CLEANED WITH CHLORAPREP SOLUTION AND DRAPED ASEPTICALLY. THE PROCEDURE WAS DONE UNDER STERILE CONDITIONS. I CHECKED LATERALITY AND THE LEVEL WHERE THE PROCEDURE WAS GOING TO BE PERFORMED WITH THE PATIENT AND THE SUPPORTING STAFF AT THE MOMENT OF THE TIME OUT IN THE PROCEDURE ROOM. UNDER FLUOROSCOPIC GUIDANCE, THE TARGET POINT WAS SELECTED AT THE RIGHT AND LEFT L4-L5 AND RIGHT AND LEFT L5-S1 FACET JOINTS. TARGET POINT WAS SELECTED AFTER LATERAL ROTATION AND TILT OF THE MAGNIFIER OF THE C-ARM. LIDOCAINE 0.5% WAS USED TO NUMB THE SKIN AND THE SUBCUTANEOUS TISSUE BELOW IT. SPINAL NEEDLES, 22-GAUGE, WERE ADVANCED UNDER FLUOROSCOPIC GUIDANCE AND FOLLOWING PATIENT FEEDBACK UNTIL THE TARGETS WERE TOUCHED. THE POSITION OF THE NEEDLES WAS VERIFIED WITH AP AND LATERAL VIEWS. AFTER PROPER POSITION OF THE NEEDLES WAS ACHIEVED, ISOVUE-M DYE 30% 0.1 ML WAS INJECTED SHOWING ADEQUATE SPREAD OF THE DYE. THEN A SOLUTION OF 1.9 ML OF BUPIVACAINE 0.125% OF KENALOG 10 MG WAS INJECTED AT EACH SITE. THERE WAS NO EVIDENCE OF BLOOD, PARESTHESIA OR CEREBROSPINAL FLUID DURING THE PROCEDURE. THE PATIENT WAS SENT TO THE RECOVERY ROOM. THE PATIENT WAS MOVING THE EXTREMITIES AND DOING WELL. THERE WAS NO COMPLICATION DURING THE PROCEDURE. FLUOROSCOPY TIME WAS 11 SECONDS POST PROCEDURE NOTE THE PATIENT WILL BE SEEN IN A FOLLOW UP IN THE NEXT FEW WEEKS. INSTRUCTIONS WERE GIVEN, QUESTIONS WERE ANSWERED, AND THE PATIENT EXPRESSED UNDERSTANDING AND AGREES WITH THE PLAN. I, TINO ZAVALA, DOCUMENTED THE ABOVE INFORMATION ACTING A SCRIBE FOR DR. SERNA. I HAVE REVIEWED THE ABOVE DOCUMENT, WRITTEN BY TINO ZAVALA SCRIBE AND I VERIFY THAT IT IS ACCURATE. PROCEDURE CODES 83981 INJ PARAVERT F JNT L/S 1 LEV, MODIFIERS: 50 [id number] INJ PARAVERT F JNT L/S 2 LEV, MODIFIERS: 50 [id number] RADXPS IN END [id number] PXD DISPOSITION & COMMUNICATION FOLLOW UP 3 WEEKS ELECTRONICALLY SIGNED BY ROD SERNA MD, MD ON 03/17/2019 AT 01:33 PM EDT DISCLAIMER : THIS IS A VISIT SUMMARY EXTRACTED FROM THE [employer] CHART. IT IS NOT A COPY OF THE [employer] PROGRESS NOTE. MTDD
== END ==
LOC: M PAIN 11:00
PROVIDERS: ATTEND Anesthesiology
DX: M47.816 Spondylosis without myelopathy or radiculopathy, lumbar region (principal); M47.817 Spondylosis without myelopathy or radiculopathy, lumbosacral region; M54.5 Low back pain; F41.9 Anxiety disorder, unspecified; E78.2 Mixed hyperlipidemia; I48.0 Paroxysmal atrial fibrillation; I10 Essential (primary) hypertension; E11.9 Type 2 diabetes mellitus without complications; M19.90 Unspecified osteoarthritis, unspecified site; Z87.442 Personal history of urinary calculi; Z87.440 Personal history of urinary (tract) infections; N32.81 Overactive bladder; Z79.01 Long term (current) use of anticoagulants; Z79.84 Long term (current) use of oral hypoglycemic drugs; Z79.891 Long term (current) use of opiate analgesic; Z79.899 Other long term (current) drug therapy; Z87.891 Personal history of nicotine dependence; Z88.6 Allergy status to analgesic agent; Z88.8 Allergy status to other drugs, medicaments and biological substances; Z91.030 Bee allergy status
CPT/HCPCS: 64493; 64494; J3301; Q9966

== ENCOUNTER → 2019-03-30 | Outpatient (CLI) | payer BC ==
[~2019-03-30] MED LIST changes: -BUPIVACAINE HCL 0.25% 30 ML VIAL As Ordered ONE; +BUPR10DI3 TD; -ISOVUE-M 200 41% 20ML VIAL (Q9966) As Ordered ONE; -LIDOCAINE 1% SDV INJ 30 ML VIAL As Ordered ONE; +LORA2TAB14 PO; -LORA2TAB9 PO; -TRIAMCINOLONE ACETONIDE SUSP 40 MG/ML VIAL (J3301) As Ordered ONE; -diazePAM 5 MG TAB As Ordered ONE; -methylPREDNISolone SUSP 40 MG/ML (DEPO-medrol) VIAL (J1030) As Ordered ONE; -oxyCODONE 5MG TAB As Ordered ONE
--- NOTE | 2019-04-01 02:08 | ECWPNPC ---
PATIENT NAME: TAMIR JASSO : 1955 GENDER: MALE VISIT DATE: 03/30/2019 DISCHARGE DATE: 03/30/19 1058 VISIT LOCKED DATE TIME: PHYSICIAN: KARLIE MOROCHO RESOURCE: KARLIE MOROCHO REASON FOR APPOINTMENT 1. POST PROC HISTORY OF PRESENT ILLNESS HISTORY OF PRESENT ILLNESS: PAIN THE PATIENT DESCRIBES THE PAIN... 63-YEAR-OLD MALE IN FOR POST FACET BLOCK FOLLOW-UP. HE RATES HIS PAIN PREPROCEDURE AND A FOURTH 10 AND POSTPROCEDURE AT A 3-4/10. 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 HE FURTHER ADMITS TO FALLING. HE RATES HIS PAIN CURRENTLY AT A 3-4 OUT OF 10 AND DESCRIBES IT ACHING, SHARP, BURNING, SORE, AND TENDER. FALL RISK SCREENING: SCREENING :NO FALLS REPORTED IN THE LAST YEAR CURRENT MEDICATIONS TAKING EPIPEN 0.3 MG/0.3ML DEVICE USE DIRECTED INJECTION AT FIRST SIGN OF ANAPHYLAXIS AND GO TO ED. TAKING ALCOHOL PREP PAD 70 % PAD USE 1 PAD TOPICALLY WHEN TESTING BLOOD SUGAR UP TO BID (DX: 250.00) TAKING FLECAINIDE ACETATE 100 MG TABLET 1 TABLET ORALLY BID TAKING ELIQUIS 5 MG TABLET ORALLY BID, NOTES: 03/06/19@2030 TAKING ONE TOUCH ULTRA TEST STRIPS ULTRA MINI STRIPS USE 1 TEST STRIP . TO TEST BLOOD SUGAR UP TO BID (DX: 250.00) TAKING ATIVAN 2 MG TABLET 1TAB ORALLY QID PRN MDD=4, NOTES: 100@ TAKING CARVEDILOL 12.5 MG TABLET 1/2 TAB ORALLY DAILY, NOTES: 0600 TAKING DULOXETINE HCL 30 MG CAPSULE DELAYED RELEASE PARTICLES 1 CAPSULE ORALLY THREE TIMES DAILY TAKING DILTIAZEM HCL 30 MG TABLET 1 TABLET BEFORE MEALS ORALLY BID, NOTES: 0600 TAKING METFORMIN HCL 500 MG TABLET 1 TABLET WITH A MEAL ORALLY ONCE A DAY, NOTES: 03/08/19 TAKING ONE TOUCH DELICA 33 GAUGE LANCETS USE 1 LANCET SUBCUTANEOUSLY TO TEST BLOOD SUGAR UP TO BID. (ICD10 E11.65) TAKING EZETIMIBE 10 MG TABLET 1 TABLET ORALLY ONCE A DAY TAKING TOLTERODINE TARTRATE ER 4 MG CAPSULE EXTENDED RELEASE 24 HOUR 1 CAPSULE ORALLY ONCE A DAY TAKING ONETOUCH TEST - STRIP DIRECTED IN VITRO BID ICD10 E11.65 TAKING INDOCIN 50 MG CAPSULE 1 CAPSULE WITH FOOD ORALLY THREE TIMES A DAY FOR GOUT FLARE NEEDED TAKING HYDROCODONE-ACETAMINOPHEN 10-325 MG TABLET 1 TABLET NEEDED ORALLY EVERY 6 HRS PRN MDD4, NOTES: 0600 MEDICATION LIST REVIEWED AND RECONCILED WITH THE PATIENT PAST MEDICAL HISTORY LBP HLP ANXIETY H/O HEPATITIS C (PREVIOUSLY TREATED AND CURRENTLY UNDETECTABLE) H/O GOUT PAROXYSMAL A-FIB (FOLLOWED BY DR. MONTES) HYPERTENSION HYPERLIPIDEMIA ARTHRITIS DM A-FIB KIDNEY STONES UTI SEPSIS OAB ALLERGIES ASPIRIN: UPSET STOMACH - SIDE EFFECTS BUSPAR: UNRESPONSIVENESS BEE STING: ALLERGIC REACTION - ALLERGY SURGICAL HISTORY NO PERSONAL OR FHX OF SEVERE REACTION TO ANESTHESIA TRIGGER FINGER BILAT (SOS, DR. OVALLES) COLONOSCOPY (REPEAT IN 10YRS) 07/26/2012 DISKECTOMY 08/2014 TLIF AT [facility] 06/25/15 LASER LITHO WITH LEFT STENT PLACEMENT 02/01/2018 CYSTO WITH LEFT STENT REMOVAL 02/08/2018 LASER LITHO WITH LEFT STENT PLACEMENT 06/03/2018 URETEROSCOPY W/ LASER LITHOTRIPSY 07/26/2018 NECK SURGERY/CYST REMOVAL 02/02/2019 FAMILY HISTORY FATHER: 66 YRS, [place], DIAGNOSED WITH UNSPECIFIED HEART DISEASE MOTHER: 55 YRS, MULTIPLE MYELOMA, OTHER MALIGNANT NEOPLASM OF UNSPECIFIED SITE SIBLINGS: ALIVE, BROTHERS (2) - OA X 2 SISTERS (2) - OA X 2 2 BROTHER(S) , 2 SISTER(S) . NO CHILDREN. DENIES FAMILY HX OF PANCREATIC CANCER, MOTHER OF MELANOMASISTER HAS PULMONARY FIBROSIS. SOCIAL HISTORY GENERAL: TOBACCO USE ARE YOU A:FORMER SMOKER HOW LONG HAS IT BEEN SINCE YOU LAST SMOKED?> 10 YEARS HIV / HEP-C SCREENING HIV TEST OFFERED TO PATIENT:YES DATE OFFERED:01/22/2018 TEST ACCEPTED:NO HEP-C TEST OFFERED TO PATIENT:YES DATE OFFERED:01/22/2018 REASON:PATIENT DECLINED TEST ACCEPTED:NO REASON:PATIENT DECLINED BROCHURE PROVIDED TO PATIENTNO OTHERS AT HOME: SPOUSE. HOUSING: OWNS HOME. EDUCATION LEVEL OF EDUCATION:HIGH SCHOOL DIET: REGULAR DIET, AVOIDS "JUNK FOOD". LANGUAGE LANGUAGES SPOKEN:BELGIAN DOMESTIC VIOLENCE DO YOU FEEL SAFE IN YOUR ENVIRONMENT?YES RECREATIONAL DRUG USE DRUG USE?NO EXERCISE: NO REGULAR EXERCISE, BUT DOES BARN CHORES. LEARNING BARRIERS / SPECIAL NEEDS CHANGE FROM LAST VISIT?NO 02/15/2019 BARRIERS TO LEARNING?NO HEARING IMPAIRED?NO VISION IMPAIRED?YES COGNITIVELY IMPAIRED?NO :CORRECTIVE LENSES READINESS TO LEARN?YES LEARNING PREFERENCES?NO LEARNING CAPABILITIES PRESENT?YES EMOTIONAL BARRIERS?NO SPECIAL DEVICES?NO MANAGER OF CONSTRUCTION NEEDED?NO PAIN CLINIC PFS, CLERGY, PUBLIC HEALTH REFERRALS WAS THE PROVIDER NOTIFIED OF ANY PERTINENT INFO?YES HAS THE PATIENT BEEN EDUCATED REGARDING HIS/HER PLAN OF CARE?YES HAS THE PATIENT BEEN EDUCATED REGARDING PAIN, THE RISK FOR PAIN, THE IMPORTANCE OF EFFECTIVE PAIN MANAGEMENT, AND THE PAIN ASSESSMENT PROCESS?YES LATEX QUESTIONNAIRE LATEX ALLERGY : HAVE YOU EVER DEVELOPED ANY TYPE OF REACTION AFTER HANDLING LATEX PRODUCTS SUCH RUBBER GLOVES, CONDOMS, DIAPHRAGMS, BALLOONS, SOCKS, OR UNDERWEAR?NO LATEX ALLERGY : HAVE YOU EVER DEVELOPED ANY TYPE OF REACTION DURING OR AFTER DENTAL APPOINTMENT, VAGINAL/RECTAL EXAMINATION, SURGICAL PROCEDURE, OR ANY OTHER EXPOSURE?NO DATE ASKED : 03/10/2019 LATEX RISK : HAVE YOU EVER HAD ANY DIFFICULTY BREATHING OR HIVES AFTER EATING OR HANDLING ANY FRUITS, OR VEGETABLES; SUCH KIWI, BANANAS, STONE FRUITS, OR CHESTNUTSNO LATEX RISK : DO YOU HAVE A PREVIOUS PERSONAL HISTORY OF MORE THAN NINE SURGERIES, SPINA BIFIDA, OR REPEATED CATHERIZATIONS? NO LATEX RISK : ARE YOU FREQUENTLY EXPOSED TO LATEX PRODUCTS IN YOUR OCCUPATION?NO CAFFEINE 2-5/DAY. ADVANCE DIRECTIVE ADVANCE DIRECTIVE DISCUSSED WITH PATIENT:YES PT DOES NOT HAVE ANY ADVANCE DIRECTIVES AND HE DECLINES INFORMATION ON HCP AT THIS TIME. MORMONISM [id number] HOLINESS MARITAL STATUS: . ALCOHOL SCREENING POINTS: 4, INTERPRETATION: POSITIVE. 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 SEXUAL HX HAD SEX IN THE LAST 12 MONTHS (VAGINAL, ORAL, OR ANAL)?: NO, HAVE YOU EVER HAD AN STD?: NO. 05/04/18 1214 REVIEWED WITH PT. AD. HOSPITALIZATION/MAJOR DIAGNOSTIC PROCEDURE CELLULITIS/[place]LEBITIS ([facility] 1976 TRIGGER FINGER SURGERY [facility]I NALINI-BUSPAR REACTION 11/2014 [facility]-NECK AND BACK SURGERY 06/2015 UROSEPSIS, KIDNEY STONE 05/2018 REVIEW OF SYSTEMS REVIEWED BY: PROVIDER: CHANELL VARMA-Jaquelin . CONSTITUTIONAL: ANY CHANGE IN YOUR MEDICAL CONDITION? NO . CHILLS NO . FEVER NO . INFECTION: DO YOU HAVE NEW INFECTIONS? NO . DO YOU HAVE HISTORY OF MRSA? NO . MUSCULOSKELETAL: ANY NEW PATTERNS OF PAIN OR NUMBNESS? NO . GASTROENTEROLOGY: ANY NEW CHANGE IN BOWEL CONTROL? NO . GENITOURINARY: ANY NEW CHANGE IN BLADDER CONTROL? NO . IS THERE A CHANCE YOU COULD BE ? NO . HEMATOLOGY/LYMPH: DO YOU TAKE ANY BLOOD THINNERS? (FOR EXAMPLE- COUMADIN, PLAVIX, AGGRENOX, PLATEL, PRADAXA, OR XARELTO) YES . WHEN WAS YOUR LAST DOSE? DATE: TIME: . NEUROLOGY: HAVE YOU FALLEN IN THE PAST 12 MONTHS? NO . ANY NEW EXTREMITY NUMBNESS OR WEAKNESS? NO . CARDIOLOGY: DO YOU HAVE A PACEMAKER OR DEFIBRILLATOR? NO . RESPIRATORY: HAVE YOU BEEN SICK IN THE PAST WEEK? NO . FEVER NO . FLU LIKE SYMPTOMS? NO . COUGH NO . INTEGUMENTARY: DO YOU HAVE ANY RASHES OR OPEN SORES? NO . ALLERGIC/IMMUNO: ARE YOU ALLERGIC TO IV DYE? NO . ANY NEW ALLERGIES? NO . PSYCHIATRIC: DO YOU HAVE THOUGHTS OF HURTING YOURSELF OR SOMEONE ELSE? NO . ARE YOU ABUSED, NEGLECTED, OR IN AN UNSAFE ENVIRONMENT? NO . ENDOCRINOLOGY: ARE YOU DIABETIC? NO . OTHER: DO YOU NEED ANY PRESCRIPTIONS? NO . IF YES, PLEASE LIST: ____ . ANY NEW PROBLEMS WITH YOUR MEDICATIONS? NO . WHEN DID YOU LAST EAT? ____ . WHEN DID YOU LAST DRINK? ____ . WHAT DID YOU LAST DRINK? ____ . NAME OF PERSON DRIVING YOU HOME? ____ . DO YOU HAVE ANY OTHER QUESTIONS OR CONCERNS NO . VITAL SIGNS WT 242.4 LBS, HT 74 IN, BMI 31.12 INDEX, BP 126/86 MM HG, HR 72 /MIN, RR 18 /MIN, TEMP 96.8 F, OXYGEN SAT % 94%, NA INITIALS AW 1001, REVIEWED BY: KG. EXAMINATION GENERAL EXAMINATION: GENERALNO ACUTE DISTRESS, WELL NOURISHED AND HYDRATED. PSYCHAPPROPRIATE MOOD AND AFFECT . LUNGS:CLEAR TO AUSCULTATION BILATERALLY, NO WHEEZES, RHONCHI, RALES. HEART:NO MURMURS, REGULAR RATE AND RHYTHM. ASSESSMENTS LUMBOSACRAL SPONDYLOSIS WITHOUT MYELOPATHY - M47.817 (PRIMARY) TREATMENT LUMBOSACRAL SPONDYLOSIS WITHOUT MYELOPATHY START BUTRANS PATCH WEEKLY, 10 MCG/HR, 1 PATCH TO SKIN, TRANSDERMAL, 1 WEEKLY, 30 DAYS, 4 STOP HYDROCODONE-ACETAMINOPHEN TABLET, 10-325 MG, 1 TABLET NEEDED, ORALLY, EVERY 6 HRS PRN MDD4, NOTES: 0600 CLINICAL NOTES: 63-YEAR-OLD MALE IN FOR POST FACET BLOCK FOLLOW-UP. DISCUSSED MEDICATION CHANGES WITH THE PATIENT AND HE WISHES TO GET OFF THE HYDROCODONE. MEDICATIONS THAT WERE DISCUSSED INCLUDED NUCYNTA AND BUTRANS PATCH. INFORMED PATIENT THIS LOCATION MANAGER WOULD CONSULT WITH ANOTHER PROVIDER TO WHICH WOULD BE THE BEST OPTION AND CALL HIM LATER WITH THAT DECISION. PATIENT HAS EXPRESSED UNDERSTANDING OF AND WAS IN AGREEMENT WITH TREATMENT PLAN. GIVEN TIME TO ASK QUESTIONS AND EXPRESS CONCERNS.DISCUSSED WITH HELEN VARMA AND WILL START PATIENT ON BUTRANS PATCH. , [employer] REGISTRY REVIEWED AND DEMONSTRATES COMPLLIANCE. (REF # [id number] ) BRINGS IN MEDICATIONS WHICH IS APPROPRIATE FOR WHAT WAS DISPENSED. RECENT URINE TOXICOLOGY REVIEWED. NO UNAUTHORIZED MEDICATIONS. NO ILLICIT SUBSTANCES AND PRESCRIBED MEDICATIONS WERE PRESENT. PROCEDURE CODES [id number] ESTABILISHED PATIENT [facility] CHARGE DISPOSITION & COMMUNICATION FOLLOW UP 4 WEEKS (REASON: NEW MEDICATION ) ELECTRONICALLY SIGNED BY KOJO LEONARD ON 03/31/2019 AT 12:59 PM EDT DISCLAIMER : THIS IS A VISIT SUMMARY EXTRACTED FROM THE [employer] CHART. IT IS NOT A COPY OF THE [employer] PROGRESS NOTE. MTDD
== END ==
LOC: M PAIN 10:15
PROVIDERS: ATTEND Family Medicine
DX: M47.817 Spondylosis without myelopathy or radiculopathy, lumbosacral region (principal); Z86.59 Personal history of other mental and behavioral disorders; I10 Essential (primary) hypertension; E78.5 Hyperlipidemia, unspecified; M19.90 Unspecified osteoarthritis, unspecified site; E11.9 Type 2 diabetes mellitus without complications; Z87.891 Personal history of nicotine dependence; Z88.6 Allergy status to analgesic agent; Z88.8 Allergy status to other drugs, medicaments and biological substances; Z91.030 Bee allergy status; Z79.01 Long term (current) use of anticoagulants; Z79.84 Long term (current) use of oral hypoglycemic drugs; Z79.899 Other long term (current) drug therapy

== ENCOUNTER → 2019-04-08 | Outpatient (CLI) | payer BC ==
[~2019-04-08] MED LIST changes: -BUPR10DI3 TD; -LORA2TAB14 PO; +LORA2TAB9 PO
== END ==
LOC: M SMT 10:28
PROVIDERS: ATTEND Nurse Practitioner Family
DX: Z12.5 Encounter for screening for malignant neoplasm of prostate (principal)
CPT/HCPCS: 36415; G0103

== ENCOUNTER → 2019-04-13 | Outpatient (REF) | payer BC, MEDICARE ==
[~2019-04-13] MED LIST changes: +BUPR10DI3 TD
== END ==
LOC: M LAB REF 12:37
PROVIDERS: ATTEND Physician Assistant
DX: M70.21 Olecranon bursitis, right elbow (principal)

== ENCOUNTER → 2019-04-20 | Outpatient (CLI) | payer MEDICARE ==
[2019-04-20 12:14] LABS: INR 1.05; PROTHROMBIN TIME 13.4 SECONDS (11.8-14.0)
[2019-04-20 12:29] LABS: POTASSIUM SERUM 5.3 MEQ/L (3.5-5.1)
--- NOTE | 2019-04-21 11:53 | REP ---
PA and lateral chest: Comparison is 03/22/2012. Lung hall are hyperinflated but clear. Cardiac size is normal. The jennifer, mediastinum, skeletal structures are unremarkable except for a cervical spine stabilization plate. Impression: Hyperinflation, otherwise negative PA and lateral chest. Electronically Signed by Flash Mckeon MD 04/20/2019 01:10 P
--- NOTE | 2019-04-23 09:41 | ECGEPIP ---
[facility] Test Date: 2019-04-20 Pat Name: TAMIR JASSO Department: Room: - Gender: Male Wool Brusher: CHERELLE : 1955 Requested By: CRYSTAL BRAR Order Number: [id number] Reading MD: Kiera Vega Measurements Intervals [place] Rate: 58 P: 53 MN: 162 QRS: 31 QRSD: 122 T: 41 QT: 422 QTc: 418 Interpretive Statements SINUS BRADYCARDIA WITH SINUS ARRHYTHMIA SIMILAR TO 06/04/18 Electronically Signed on 04-23-2019 9:41:26 EDT by Kiera Vega
== END ==
LOC: M LAB 11:09
PROVIDERS: ATTEND Orthopaedic Surgery Sports Medicine
DX: M71.121 Other infective bursitis, right elbow (principal); Z79.01 Long term (current) use of anticoagulants

== ENCOUNTER 2019-04-25 08:06 | Day surgery (SDC) | payer MEDICARE ==
[~2019-04-25] VITALS: Ht 188 cm; Wt 104.3 kg
[~2019-04-25 08:06] MED LIST changes: +LIDOCAINE 1% MDV 20ML VIAL SQ PRN; +LR 1,000 ML IV ONE; +ceFAZolin SOD 2 GM in IV 1 EA IV ONE
[2019-04-25 08:48] LABS: HEMATOCRIT 47.4 % (42.0-52.0); HEMOGLOBIN 15.4 g/dl (13.5-17.5); MEAN CORPUSCULAR HEMOGLOBIN 29.7 pg (27.0-33.0); MEAN CORPUSCULAR HGB CONC 32.5 g/dl (32.0-36.5); MEAN CORPUSCULAR VOLUME 91.5 fl (80.0-96.0); PLATELET COUNT, AUTOMATED 266 10^3/uL (150-450); RED BLOOD COUNT 5.18 10^6/uL (4.30-6.10); WHITE BLOOD COUNT 10.4 10^3/uL (4.0-10.0)
[2019-04-25 09:08] LABS: BLOOD UREA NITROGEN 21 MG/DL (7-18); CALCIUM LEVEL 9.4 MG/DL (8.8-10.2); CARBON DIOXIDE LEVEL 29 MEQ/L (21-32); CHLORIDE LEVEL 105 MEQ/L (98-107); CREATININE FOR GFR 1.17 MG/DL (0.70-1.30); GLOMERULAR FILTRATION RATE > 60.0 (>49); GLUCOSE, FASTING 146 MG/DL (70-100); POTASSIUM SERUM 4.7 MEQ/L (3.5-5.1); SODIUM LEVEL 139 MEQ/L (136-145)
[2019-04-25] MEDS ORDERED: LIDOCAINE 2% INJ 100 MG/5 ML SDV (FOR ANES.) As Ordered ONE (11:32)
[2019-04-25] MEDS ORDERED: fentaNYL 250 MCG/5 ML INJECTION (J3010) As Ordered ONE (11:32)
[2019-04-25] MEDS ORDERED: PROPOFOL 200 MG/20 ML VIAL As Ordered ONE (11:32)
[2019-04-25] MEDS ORDERED: MIDAZOLAM INJ 2 MG/2 ML VIAL (J2250) As Ordered ONE (11:32)
[2019-04-25] MEDS ORDERED: ONDANSETRON 4MG/2ML VIAL (J2405) As Ordered ONE (11:34)
[2019-04-25] MEDS ORDERED: dexameTHASONE 4 MG/ML 1ML VIAL (J1100) As Ordered ONE (11:34)
[2019-04-25] MEDS ORDERED: LR 1,000 ML IV SCH ×2 (12:45)
[2019-04-25] MEDS: PERCOCET 5MG/325MG TAB PO PRN ×2 (12:45→13:26)
[2019-04-25] MEDS ORDERED: METOCLOPRAMIDE INJ 10MG/2ML VIAL (J2765) IV PRN (12:45)
[2019-04-25] MEDS ORDERED: ONDANSETRON 4MG/2ML VIAL (J2405) IV PRN ×2 (12:45→13:00)
[2019-04-25] MEDS ORDERED: fentaNYL 100 MCG/2 ML INJECTION (J3010) IV PRN (12:45)
--- NOTE | 2019-04-25 12:48 | RO ---
DATE OF PROCEDURE: 04/25/2019 PREOPERATIVE DIAGNOSIS: Right olecranon bursitis. POSTOPERATIVE DIAGNOSIS: Right olecranon bursitis with gouty tophus PLANNED PROCEDURE: Right elbow olecranon bursectomy debridement and closure. SURGEON: Dr. Placido [place] [employer]ICULTURAL AGENT: ANESTHESIA: General anesthetic. OPERATIVE PREAMBLE: This is a pleasant 63-year-old man who presented my office. He was having about 2 weeks of drainage from his right elbow. He has had a irrigation debridement right elbow in the past as well as gout in his foot. He is unable to take anti-inflammatories as there really cause some complications with him so he wanted surgical solution. We talked about the pros, cons, risks, benefits going ahead with right elbow olecranon bursectomy debridement and closure. He wished proceed. I saw him in preoperative holding, reiterated the risks and benefits. Marked the right elbow and we decided to proceed with surgery. He has also mentioned that he was developing another little bit of a bump distally to the original one and wanted that also addressed. DESCRIPTION OF PROCEDURE: This patient brought to operating theater. Laid and placed supine on beanbag a on the surgical table. Two grams IV Ancef was administered. General anesthetic was induced. The patient was placed right lateral decubitus with the aid of the [employer] Elbow Positioner. Axillary roll was placed. All bony prominences were padded. Sequential compression devices were placed on his lower extremities. Upper extremity was prepped and draped in the usual sterile fashion ensuring at least 3 minutes of drying time before placing the drapes. Preoperative time-out was performed to confirm the site and the patient as well as the operation. The Limb was elevated. An 18-inch tourniquet had been previously applied to the upper extremity and was inflated to 250 mmHg throughout the duration of the case. Incision was made through the old surgical incision and carried little bit distal to this staying along the subcutaneous floor of the ulna. Meticulous hemostasis was achieved. There was immediate gouty crystals encountered in the subcutaneous tissues. I performed a thorough debridement and sent these away as well as subcutaneous tissue and bursa for Gram stain culture and sensitivity, aerobic, anaerobic and fungus cultures. The bump distally as well as another collection of gouty tophus material. This was thoroughly debrided. A longitudinal split was made in the mid aspect of the triceps as well. Joint was debrided. There was also a little bit of gouty crystals at the distal aspect of triceps that I debrided. I also took a rongeur and removed a small tip of the olecranon down to smooth surface. Subcutaneous tissues were thoroughly irrigated including the joints including the intra-articular portion of the joint. The split in the triceps was closed with interrupted [id number] #1-0 Vicryl suture. Subcutaneous tissues closed with interrupted #2-0 Vicryl suture and skin with #3-0 Ethilon in and interrupted horizontal mattress fashion. Skin was cleaned with wet and dry dressing. Adaptic, 4 x 8 gauze, ABD dressing and sterile fixation bandage was overwrapped and the patient's upper extremity placed a sling. The tourniquet was taken down prior to the end of the case. The patient was woken up from general anesthetic, transferred off the operating table taken to the postanesthetic care unit in stable tissue. All sponge, needle, strong counts were correct. No complications. Estimated blood loss 20 mL. PLAN: The plan for patient is to change dressing postop day #2. Followup in the office in 2-3 days. Gentle immediate range of motion but no heavy lifting.
[2019-04-25] MEDS ORDERED: ONDANSETRON 4 MG TAB (S0181) PO PRN (13:00)
[2019-04-25] MEDS ORDERED: MORPHINE 4 MG/ML 1ML VIAL/SYRINGE (J2270) IV PRN (13:00)
[2019-04-25] MEDS ORDERED: PERCOCET 5MG/325MG TAB PO PRN (13:00)
[2019-04-25 13:55] VITALS: BP 152/88
[2019-04-26] MEDS ORDERED: UNRESOLVED CLARIFICATION ENTRY XX SCH (00:01)
== END 2019-04-25 14:02 | disposition home or self-care (01) ==
LOC: M SDC 08:06
PROVIDERS: ATTEND Orthopaedic Surgery Sports Medicine
DX: M70.21 Olecranon bursitis, right elbow (principal); M1A.0211 Idiopathic chronic gout, right elbow, with tophus (tophi); I48.0 Paroxysmal atrial fibrillation; I10 Essential (primary) hypertension; E11.9 Type 2 diabetes mellitus without complications; E78.5 Hyperlipidemia, unspecified; Z79.01 Long term (current) use of anticoagulants; Z79.899 Other long term (current) drug therapy; Z88.8 Allergy status to other drugs, medicaments and biological substances
CPT/HCPCS: 24105; 36415; 80048; 85027; 87070; 87075; 87102; 87205; J0690; J1100; J2250; J2405; J3010

== ENCOUNTER → 2019-05-02 | Outpatient (CLI) | payer MEDICARE ==
[~2019-05-02] MED LIST changes: -LIDOCAINE 1% MDV 20ML VIAL SQ PRN; -LR 1,000 ML IV ONE; -ceFAZolin SOD 2 GM in IV 1 EA IV ONE
--- NOTE | 2019-05-04 01:05 | ECWPNPC ---
PATIENT NAME: TAMIR JASSO : 1955 GENDER: MALE VISIT DATE: 05/02/2019 DISCHARGE DATE: 05/02/19 1134 VISIT LOCKED DATE TIME: PHYSICIAN: KARLIE MOROCHO RESOURCE: KARLIE MOROCHO REASON FOR APPOINTMENT 1. LOW BACK/MEDS PER KARLIE HISTORY OF PRESENT ILLNESS HISTORY OF PRESENT ILLNESS: PAIN THE PATIENT DESCRIBES THE PAIN... 63-YEAR-OLD MALE IN FOR CHRONIC PAIN FOLLOW-UP. HE RATES HIS PAIN CURRENTLY A 5 OUT OF 10 AND DESCRIBES IT ACHING, BURNING, SORE, SHARP, CONTINUOUS AND FURTHER STATES IT WAKES HIM FROM HIS SLEEP. HE DOES ADMIT THAT THE BUTRANS PATCH HAS BEEN HELPFUL BUT QUESTIONS IF AN INCREASE WOULD BE MORE HELPFUL AND POTENTIALLY DECREASE HIS USE OF HYDROCODONE. FALL RISK SCREENING: SCREENING :NO FALLS REPORTED IN THE LAST YEAR CURRENT MEDICATIONS TAKING EPIPEN 0.3 MG/0.3ML DEVICE USE DIRECTED INJECTION AT FIRST SIGN OF ANAPHYLAXIS AND GO TO ED. TAKING ALCOHOL PREP PAD 70 % PAD USE 1 PAD TOPICALLY WHEN TESTING BLOOD SUGAR UP TO BID (DX: 250.00) TAKING FLECAINIDE ACETATE 100 MG TABLET 1 TABLET ORALLY BID TAKING ELIQUIS 5 MG TABLET ORALLY BID, NOTES: 03/06/19@2030 TAKING ONE TOUCH ULTRA TEST STRIPS ULTRA MINI STRIPS USE 1 TEST STRIP . TO TEST BLOOD SUGAR UP TO BID (DX: 250.00) TAKING ATIVAN 2 MG TABLET 1TAB ORALLY QID PRN MDD=4, NOTES: 100@ TAKING CARVEDILOL 12.5 MG TABLET 1/2 TAB ORALLY DAILY, NOTES: 0600 TAKING DULOXETINE HCL 30 MG CAPSULE DELAYED RELEASE PARTICLES 1 CAPSULE ORALLY THREE TIMES DAILY TAKING DILTIAZEM HCL 30 MG TABLET 1 TABLET BEFORE MEALS ORALLY BID, NOTES: 0600 TAKING ONE TOUCH DELICA 33 GAUGE LANCETS USE 1 LANCET SUBCUTANEOUSLY TO TEST BLOOD SUGAR UP TO BID. (ICD10 E11.65) TAKING EZETIMIBE 10 MG TABLET 1 TABLET ORALLY ONCE A DAY TAKING ONETOUCH TEST - STRIP DIRECTED IN VITRO BID ICD10 E11.65 TAKING INDOCIN 50 MG CAPSULE 1 CAPSULE WITH FOOD ORALLY THREE TIMES A DAY FOR GOUT FLARE NEEDED TAKING BUTRANS 10 MCG/HR PATCH WEEKLY 1 PATCH TO SKIN TRANSDERMAL 1 WEEKLY TAKING METFORMIN HCL 500 MG TABLET 1 TABLET WITH A MEAL ORALLY ONCE A DAY, NOTES: 03/08/19 TAKING NORCO 10-325 MG TABLET 1 TABLET NEEDED ORALLY EVERY 6 HRS DISCONTINUED TOLTERODINE TARTRATE ER 4 MG CAPSULE EXTENDED RELEASE 24 HOUR 1 CAPSULE ORALLY ONCE A DAY MEDICATION LIST REVIEWED AND RECONCILED WITH THE PATIENT PAST MEDICAL HISTORY LBP HLP ANXIETY H/O HEPATITIS C (PREVIOUSLY TREATED AND CURRENTLY UNDETECTABLE) H/O GOUT PAROXYSMAL A-FIB (FOLLOWED BY DR. MONTES) HYPERTENSION HYPERLIPIDEMIA ARTHRITIS DM A-FIB KIDNEY STONES UTI SEPSIS OAB ALLERGIES ASPIRIN: UPSET STOMACH - SIDE EFFECTS BUSPAR: UNRESPONSIVENESS BEE STING: ALLERGIC REACTION - ALLERGY SURGICAL HISTORY NO PERSONAL OR FHX OF SEVERE REACTION TO ANESTHESIA TRIGGER FINGER BILAT (SOS, DR. OVALLES) 2000 COLONOSCOPY (REPEAT IN 10YRS) 07/26/2012 DISKECTOMY 08/2014 TLIF AT [facility] 06/25/15 LASER LITHO WITH LEFT STENT PLACEMENT 02/01/2018 CYSTO WITH LEFT STENT REMOVAL 02/08/2018 LASER LITHO WITH LEFT STENT PLACEMENT 06/03/2018 URETEROSCOPY W/ LASER LITHOTRIPSY 07/26/2018 NECK SURGERY/CYST REMOVAL 02/02/2019 RIGHT ELBOW GOUT REMOVED 04/2019 FAMILY HISTORY FATHER: 66 YRS, [place], DIAGNOSED WITH UNSPECIFIED HEART DISEASE MOTHER: 55 YRS, MULTIPLE MYELOMA, OTHER MALIGNANT NEOPLASM OF UNSPECIFIED SITE SIBLINGS: ALIVE, BROTHERS (2) - OA X 2 SISTERS (2) - OA X 2 2 BROTHER(S) , 2 SISTER(S) . NO CHILDREN. DENIES FAMILY HX OF PANCREATIC CANCER, MOTHER OF MELANOMASISTER HAS PULMONARY FIBROSIS. SOCIAL HISTORY GENERAL: TOBACCO USE ARE YOU A:FORMER SMOKER HOW LONG HAS IT BEEN SINCE YOU LAST SMOKED?> 10 YEARS HIV / HEP-C SCREENING HIV TEST OFFERED TO PATIENT:YES DATE OFFERED:04/06/2019 TEST ACCEPTED:NO HEP-C TEST OFFERED TO PATIENT:YES DATE OFFERED:04/06/2019 REASON:PATIENT DECLINED TEST ACCEPTED:NO REASON:PATIENT DECLINED BROCHURE PROVIDED TO PATIENTYES OTHERS AT HOME: SPOUSE. HOUSING: OWNS HOME. EDUCATION LEVEL OF EDUCATION:HIGH SCHOOL DIET: REGULAR DIET, AVOIDS "JUNK FOOD". LANGUAGE LANGUAGES SPOKEN:ECUADOREAN DOMESTIC VIOLENCE DO YOU FEEL SAFE IN YOUR ENVIRONMENT?YES RECREATIONAL DRUG USE DRUG USE?NO EXERCISE: NO REGULAR EXERCISE, BUT DOES BARN CHORES. LEARNING BARRIERS / SPECIAL NEEDS CHANGE FROM LAST VISIT?NO 02/15/2019, 04/19/19 BARRIERS TO LEARNING?NO HEARING IMPAIRED?NO VISION IMPAIRED?YES COGNITIVELY IMPAIRED?NO :CORRECTIVE LENSES READINESS TO LEARN?YES LEARNING PREFERENCES?NO LEARNING CAPABILITIES PRESENT?YES EMOTIONAL BARRIERS?NO SPECIAL DEVICES?NO SAND BLASTER NEEDED?NO PAIN CLINIC PFS, CLERGY, PUBLIC HEALTH REFERRALS WAS THE PROVIDER NOTIFIED OF ANY PERTINENT INFO?YES HAS THE PATIENT BEEN EDUCATED REGARDING HIS/HER PLAN OF CARE?YES HAS THE PATIENT BEEN EDUCATED REGARDING PAIN, THE RISK FOR PAIN, THE IMPORTANCE OF EFFECTIVE PAIN MANAGEMENT, AND THE PAIN ASSESSMENT PROCESS?YES LATEX QUESTIONNAIRE LATEX ALLERGY : HAVE YOU EVER DEVELOPED ANY TYPE OF REACTION AFTER HANDLING LATEX PRODUCTS SUCH RUBBER GLOVES, CONDOMS, DIAPHRAGMS, BALLOONS, SOCKS, OR UNDERWEAR?NO LATEX ALLERGY : HAVE YOU EVER DEVELOPED ANY TYPE OF REACTION DURING OR AFTER DENTAL APPOINTMENT, VAGINAL/RECTAL EXAMINATION, SURGICAL PROCEDURE, OR ANY OTHER EXPOSURE?NO DATE ASKED : 04/08/2019 LATEX RISK : HAVE YOU EVER HAD ANY DIFFICULTY BREATHING OR HIVES AFTER EATING OR HANDLING ANY FRUITS, OR VEGETABLES; SUCH KIWI, BANANAS, STONE FRUITS, OR CHESTNUTSNO LATEX RISK : DO YOU HAVE A PREVIOUS PERSONAL HISTORY OF MORE THAN NINE SURGERIES, SPINA BIFIDA, OR REPEATED CATHERIZATIONS? NO LATEX RISK : ARE YOU FREQUENTLY EXPOSED TO LATEX PRODUCTS IN YOUR OCCUPATION?NO CAFFEINE 2-5/DAY. ADVANCE DIRECTIVE ADVANCE DIRECTIVE DISCUSSED WITH PATIENT:YES PT DOES NOT HAVE ANY ADVANCE DIRECTIVES AND HE DECLINES INFORMATION ON HCP AT THIS TIME. BAHAI [id number] ANABAPTISM MARITAL STATUS: . ALCOHOL SCREENING POINTS: 4, INTERPRETATION: POSITIVE. 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 SEXUAL HX HAD SEX IN THE LAST 12 MONTHS (VAGINAL, ORAL, OR ANAL)?: NO, HAVE YOU EVER HAD AN STD?: NO. 05/04/18 1214 REVIEWED WITH PT. AD. HOSPITALIZATION/MAJOR DIAGNOSTIC PROCEDURE [place]ULIT[place] ([facility] [place] 1976 TRIGGER FINGER SURGERY 2000 [facility]-BUSPAR REACTION 11/2014 [facility]-NECK AND BACK SURGERY 06/2015 UROSEPSIS, KIDNEY STONE 05/2018 REVIEW OF SYSTEMS REVIEWED BY: PROVIDER: CHANELL MOROCHO COLORMAN-C . CONSTITUTIONAL: ANY CHANGE IN YOUR MEDICAL CONDITION? NO . CHILLS NO . FEVER NO . INFECTION: DO YOU HAVE NEW INFECTIONS? NO . DO YOU HAVE HISTORY OF MRSA? NO . MUSCULOSKELETAL: ANY NEW PATTERNS OF PAIN OR NUMBNESS? NO . GASTROENTEROLOGY: ANY NEW CHANGE IN BOWEL CONTROL? YES, CAN'T SEEM TO HOLD BOWELS, HAS TO RUN TO BATHROOM, SOMETIMES DOESN'T MAKE IT ON TIME . GENITOURINARY: ANY NEW CHANGE IN BLADDER CONTROL? NO . IS THERE A CHANCE YOU COULD BE ? NO . HEMATOLOGY/LYMPH: DO YOU TAKE ANY BLOOD THINNERS? (FOR EXAMPLE- COUMADIN, PLAVIX, AGGRENOX, PLATEL, PRADAXA, OR XARELTO) YES, ELLIQUIS . WHEN WAS YOUR LAST DOSE? DATE: TIME: . NEUROLOGY: HAVE YOU FALLEN IN THE PAST 12 MONTHS? NO . ANY NEW EXTREMITY NUMBNESS OR WEAKNESS? NO . CARDIOLOGY: DO YOU HAVE A PACEMAKER OR DEFIBRILLATOR? NO . RESPIRATORY: HAVE YOU BEEN SICK IN THE PAST WEEK? YES, URI GETTING BETTER . FEVER NO . FLU LIKE SYMPTOMS? NO . COUGH NO . INTEGUMENTARY: DO YOU HAVE ANY RASHES OR OPEN SORES? NO . ALLERGIC/IMMUNO: ARE YOU ALLERGIC TO IV DYE? NO . ANY NEW ALLERGIES? NO . PSYCHIATRIC: DO YOU HAVE THOUGHTS OF HURTING YOURSELF OR SOMEONE ELSE? NO . ARE YOU ABUSED, NEGLECTED, OR IN AN UNSAFE ENVIRONMENT? NO . ENDOCRINOLOGY: ARE YOU DIABETIC? YES . OTHER: DO YOU NEED ANY PRESCRIPTIONS? YES, [place]IL [place] . IF YES, PLEASE LIST: ____ . ANY NEW PROBLEMS WITH YOUR MEDICATIONS? NO . WHEN DID YOU LAST EAT? ____ . WHEN DID YOU LAST DRINK? ____ . WHAT DID YOU LAST DRINK? ____ . NAME OF PERSON DRIVING YOU HOME? ____ . DO YOU HAVE ANY OTHER QUESTIONS OR CONCERNS NO . VITAL SIGNS WT 244.6 LBS, HT 74 IN, BMI 31.40 INDEX, BP 157/92 MM HG, HR 84 /MIN, RR 18 /MIN, TEMP 97.6 F, OXYGEN SAT % 97%, NA INITIALS SC 10:00, REVIEWED BY: EM. EXAMINATION GENERAL EXAMINATION: GENERALNO ACUTE DISTRESS, WELL NOURISHED AND HYDRATED. PSYCHAPPROPRIATE MOOD AND AFFECT . LUNGS:CLEAR TO AUSCULTATION BILATERALLY, NO WHEEZES, RHONCHI, RALES. HEART:NO MURMURS, REGULAR RATE AND RHYTHM. ASSESSMENTS LUMBAR POST-LAMINECTOMY SYNDROME - M96.1 (PRIMARY) USE OF OPIATES FOR THERAPEUTIC PURPOSES - Z79.891 TREATMENT LUMBAR POST-LAMINECTOMY SYNDROME REFILL BUTRANS PATCH WEEKLY, 15 MCG/HR, 1 PATCH TO SKIN, TRANSDERMAL, 1 WEEKLY, 30 DAYS, 4 REFILL NORCO TABLET, 10-325 MG, 1 TABLET NEEDED, ORALLY, EVERY 6 HRS, 30 DAYS, 120 TABLET CLINICAL NOTES: 63-YEAR-OLD MALE IN FOR CHRONIC PAIN FOLLOW-UP. GIVEN PRESENTING SYMPTOMS AND RESULTS OF PHYSICAL EXAMINATION RECOMMENDED INCREASING BUTRANS PATCH WITH FOLLOW-UP IN 2 MONTHS. PATIENT HAS EXPRESSED UNDERSTANDING OF AND WAS IN AGREEMENT WITH TREATMENT PLAN. GIVEN TIME TO ASK QUESTIONS AND EXPRESS CONCERNS., ISTOP REGISTRY REVIEWED AND DEMONSTRATES COMPLLIANCE. (REF #[id number] ) BRINGS IN MEDICATIONS WHICH IS APPROPRIATE FOR WHAT WAS DISPENSED. RECENT URINE TOXICOLOGY REVIEWED. NO UNAUTHORIZED MEDICATIONS. NO ILLICIT SUBSTANCES AND PRESCRIBED MEDICATIONS WERE PRESENT. PROCEDURE CODES FA211 ESTABILISHED PATIENT [facility] CHARGE DISPOSITION & COMMUNICATION FOLLOW UP 2 MONTHS (REASON: CHRONIC PAIN ) ELECTRONICALLY SIGNED BY KOJO LEONARD ON 05/03/2019 AT 09:49 AM EDT DISCLAIMER : THIS IS A VISIT SUMMARY EXTRACTED FROM THE [employer] CHART. IT IS NOT A COPY OF THE [employer] PROGRESS NOTE. NOE
== END ==
LOC: M PAIN 10:15
PROVIDERS: ATTEND Family Medicine
DX: M96.1 Postlaminectomy syndrome, not elsewhere classified (principal); Z86.59 Personal history of other mental and behavioral disorders; Z86.19 Personal history of other infectious and parasitic diseases; I10 Essential (primary) hypertension; E78.5 Hyperlipidemia, unspecified; M19.90 Unspecified osteoarthritis, unspecified site; E11.9 Type 2 diabetes mellitus without complications; Z87.891 Personal history of nicotine dependence; Z88.6 Allergy status to analgesic agent; Z88.8 Allergy status to other drugs, medicaments and biological substances; Z91.030 Bee allergy status; Z79.01 Long term (current) use of anticoagulants; Z79.84 Long term (current) use of oral hypoglycemic drugs; Z79.899 Other long term (current) drug therapy

== ENCOUNTER → 2019-07-01 | Outpatient (CLI) | payer MEDICARE ==
--- NOTE | 2019-07-05 04:28 | ECWPNPC ---
PATIENT NAME: TAMIR JASSO : 1955 GENDER: MALE VISIT DATE: 07/01/2019 DISCHARGE DATE: 07/01/19 1052 VISIT LOCKED DATE TIME: PHYSICIAN: KARLIE MOROCHO RESOURCE: KARLIE MOROCHO REASON FOR APPOINTMENT 1. 2 MONTHS HISTORY OF PRESENT ILLNESS HISTORY OF PRESENT ILLNESS: PAIN THE PATIENT DESCRIBES THE PAIN... 64-YEAR-OLD MALE IN FOR CHRONIC PAIN FOLLOW-UP. PATIENT RATES HIS PAIN CURRENTLY AT A 7 OUT OF 10 AND DESCRIBES IT ACHING, SHARP, BURNING, AND SORE. HE CONTINUES WITH HIS HYDROCODONE TAPER TAKING ONE TABLET EVERY OTHER DAY NEEDED FOR PAIN. HE IS CURRENTLY ON BUTRANS PATCH AND FEELS IT IS HELPFUL IN REDUCING HIS PAIN. HE WOULD LIKE TO DISCUSS A POTENTIAL INCREASE IN HIS BUTRANS PATCH. FALL RISK SCREENING: SCREENING :NO FALLS REPORTED IN THE LAST YEAR CURRENT MEDICATIONS TAKING EPIPEN 0.3 MG/0.3ML DEVICE USE DIRECTED INJECTION AT FIRST SIGN OF ANAPHYLAXIS AND GO TO ED. TAKING ALCOHOL PREP PAD 70 % PAD USE 1 PAD TOPICALLY WHEN TESTING BLOOD SUGAR UP TO BID (DX: 250.00) TAKING FLECAINIDE ACETATE 100 MG TABLET 1 TABLET ORALLY BID TAKING ELIQUIS 5 MG TABLET ORALLY BID, NOTES: 03/06/19@2030 TAKING ONE TOUCH ULTRA TEST STRIPS ULTRA MINI STRIPS USE 1 TEST STRIP . TO TEST BLOOD SUGAR UP TO BID (DX: 250.00) TAKING ATIVAN 2 MG TABLET 1TAB ORALLY QID PRN MDD=4, NOTES: 100@ TAKING CARVEDILOL 12.5 MG TABLET 1/2 TAB ORALLY DAILY, NOTES: 0600 TAKING DULOXETINE HCL 30 MG CAPSULE DELAYED RELEASE PARTICLES 1 CAPSULE ORALLY THREE TIMES DAILY TAKING DILTIAZEM HCL 30 MG TABLET 1 TABLET BEFORE MEALS ORALLY BID, NOTES: 0600 TAKING ONE TOUCH DELICA 33 GAUGE LANCETS USE 1 LANCET SUBCUTANEOUSLY TO TEST BLOOD SUGAR UP TO BID. (ICD10 E11.65) TAKING EZETIMIBE 10 MG TABLET 1 TABLET ORALLY ONCE A DAY TAKING ONETOUCH TEST - STRIP DIRECTED IN VITRO BID ICD10 E11.65 TAKING INDOCIN 50 MG CAPSULE 1 CAPSULE WITH FOOD ORALLY THREE TIMES A DAY FOR GOUT FLARE NEEDED, NOTES: NOT LATELY TAKING METFORMIN HCL 500 MG TABLET 1 TABLET WITH A MEAL ORALLY ONCE A DAY, NOTES: 03/08/19 TAKING NORCO 10-325 MG TABLET 1 TABLET NEEDED ORALLY EVERY 6 HRS TAKING BUTRANS 15 MCG/HR PATCH WEEKLY 1 PATCH TO SKIN HEIDE TRANSDERMAL 1 WEEKLY MEDICATION LIST REVIEWED AND RECONCILED WITH THE PATIENT PAST MEDICAL HISTORY LBP HLP ANXIETY H/O HEPATITIS C (PREVIOUSLY TREATED AND CURRENTLY UNDETECTABLE) H/O GOUT PAROXYSMAL A-FIB (FOLLOWED BY DR. MONTES) HYPERTENSION HYPERLIPIDEMIA ARTHRITIS DM A-FIB KIDNEY STONES UTI SEPSIS OAB ALLERGIES ASPIRIN: UPSET STOMACH - SIDE EFFECTS BUSPAR: UNRESPONSIVENESS BEE STING: ALLERGIC REACTION - ALLERGY SURGICAL HISTORY NO PERSONAL OR FHX OF SEVERE REACTION TO ANESTHESIA TRIGGER FINGER BILAT (SOS, DR. OVALLES) 2000 COLONOSCOPY (REPEAT IN 10YRS) 07/26/2012 DISKECTOMY 08/2014 TLIF AT [facility] 06/25/15 LASER LITHO WITH LEFT STENT PLACEMENT 02/01/2018 CYSTO WITH LEFT STENT REMOVAL 02/08/2018 LASER LITHO WITH LEFT STENT PLACEMENT 06/03/2018 URETEROSCOPY W/ LASER LITHOTRIPSY 07/26/2018 NECK SURGERY/CYST REMOVAL 02/02/2019 RIGHT ELBOW GOUT REMOVED 04/2019 FAMILY HISTORY FATHER: 66 YRS, [place], DIAGNOSED WITH UNSPECIFIED HEART DISEASE MOTHER: 55 YRS, MULTIPLE MYELOMA, OTHER MALIGNANT NEOPLASM OF UNSPECIFIED SITE SIBLINGS: ALIVE, BROTHERS (2) - OA X 2 SISTERS (2) - OA X 2 2 BROTHER(S) , 2 SISTER(S) . NO CHILDREN. DENIES FAMILY HX OF PANCREATIC CANCER, MOTHER OF MELANOMASISTER HAS PULMONARY FIBROSIS. SOCIAL HISTORY GENERAL: TOBACCO USE ARE YOU A:FORMER SMOKER HOW LONG HAS IT BEEN SINCE YOU LAST SMOKED?> 10 YEARS HIV / HEP-C SCREENING HIV TEST OFFERED TO PATIENT:YES DATE OFFERED:04/06/2019 TEST ACCEPTED:NO HEP-C TEST OFFERED TO PATIENT:YES DATE OFFERED:04/06/2019 REASON:PATIENT DECLINED TEST ACCEPTED:NO REASON:PATIENT DECLINED BROCHURE PROVIDED TO PATIENTYES OTHERS AT HOME: SPOUSE. HOUSING: OWNS HOME. EDUCATION LEVEL OF EDUCATION:HIGH SCHOOL DIET: REGULAR DIET, AVOIDS "JUNK FOOD". LANGUAGE LANGUAGES SPOKEN:DUTCH DOMESTIC VIOLENCE DO YOU FEEL SAFE IN YOUR ENVIRONMENT?YES RECREATIONAL DRUG USE DRUG USE?NO EXERCISE: NO REGULAR EXERCISE, BUT DOES BARN CHORES. 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 NEEDED?NO PAIN CLINIC PFS, CLERGY, PUBLIC HEALTH REFERRALS WAS THE PROVIDER NOTIFIED OF ANY PERTINENT INFO?YES HAS THE PATIENT BEEN EDUCATED REGARDING HIS/HER PLAN OF CARE?YES HAS THE PATIENT BEEN EDUCATED REGARDING PAIN, THE RISK FOR PAIN, THE IMPORTANCE OF EFFECTIVE PAIN MANAGEMENT, AND THE PAIN ASSESSMENT PROCESS?YES LATEX QUESTIONNAIRE LATEX ALLERGY : HAVE YOU EVER DEVELOPED ANY TYPE OF REACTION AFTER HANDLING LATEX PRODUCTS SUCH RUBBER GLOVES, CONDOMS, DIAPHRAGMS, BALLOONS, SOCKS, OR UNDERWEAR?NO LATEX ALLERGY : HAVE YOU EVER DEVELOPED ANY TYPE OF REACTION DURING OR AFTER DENTAL APPOINTMENT, VAGINAL/RECTAL EXAMINATION, SURGICAL PROCEDURE, OR ANY OTHER EXPOSURE?NO DATE ASKED : 04/08/2019 LATEX RISK : HAVE YOU EVER HAD ANY DIFFICULTY BREATHING OR HIVES AFTER EATING OR HANDLING ANY FRUITS, OR VEGETABLES; SUCH KIWI, BANANAS, STONE FRUITS, OR CHESTNUTSNO LATEX RISK : DO YOU HAVE A PREVIOUS PERSONAL HISTORY OF MORE THAN NINE SURGERIES, SPINA BIFIDA, OR REPEATED CATHERIZATIONS? NO LATEX RISK : ARE YOU FREQUENTLY EXPOSED TO LATEX PRODUCTS IN YOUR OCCUPATION?NO CAFFEINE 2-5/DAY. ADVANCE DIRECTIVE ADVANCE DIRECTIVE DISCUSSED WITH PATIENT:YES PT DOES NOT HAVE ANY ADVANCE DIRECTIVES AND HE DECLINES INFORMATION ON HCP AT THIS TIME. SPIRITISM [id number] PENTECOSTAL MARITAL STATUS: . ALCOHOL SCREENING POINTS: 4, INTERPRETATION: POSITIVE. 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 SEXUAL HX HAD SEX IN THE LAST 12 MONTHS (VAGINAL, ORAL, OR ANAL)?: NO, HAVE YOU EVER HAD AN STD?: NO. 05/04/18 1214 REVIEWED WITH PT. AD. HOSPITALIZATION/MAJOR DIAGNOSTIC PROCEDURE CELLULITIS[place]LE[place]IS ([facility] 1976 TRIGGER FINGER SURGERY [facility]-BUSPAR REACTION 11/2014 [facility]-NECK AND BACK SURGERY 06/2015 UROSEPSIS, KIDNEY STONE 05/2018 REVIEW OF SYSTEMS REVIEWED BY: PROVIDER: CHANELL MILLARD . CONSTITUTIONAL: ANY CHANGE IN YOUR MEDICAL CONDITION? NO . CHILLS NO . FEVER NO . INFECTION: DO YOU HAVE NEW INFECTIONS? NO . DO YOU HAVE HISTORY OF MRSA? NO . MUSCULOSKELETAL: ANY NEW PATTERNS OF PAIN OR NUMBNESS? YES INCREASE IN PAIN . GASTROENTEROLOGY: ANY NEW CHANGE IN BOWEL CONTROL? NO . GENITOURINARY: ANY NEW CHANGE IN BLADDER CONTROL? NO . IS THERE A CHANCE YOU COULD BE ? NO . HEMATOLOGY/LYMPH: DO YOU TAKE ANY BLOOD THINNERS? (FOR EXAMPLE- COUMADIN, PLAVIX, AGGRENOX, PLATEL, PRADAXA, OR XARELTO) YES . WHEN WAS YOUR LAST DOSE? DATE: TIME: . NEUROLOGY: HAVE YOU FALLEN IN THE PAST 12 MONTHS? NO . ANY NEW EXTREMITY NUMBNESS OR WEAKNESS? NO . CARDIOLOGY: DO YOU HAVE A PACEMAKER OR DEFIBRILLATOR? NO . RESPIRATORY: HAVE YOU BEEN SICK IN THE PAST WEEK? NO . FEVER NO . FLU LIKE SYMPTOMS? NO . COUGH NO . INTEGUMENTARY: DO YOU HAVE ANY RASHES OR OPEN SORES? NO . ALLERGIC/IMMUNO: ARE YOU ALLERGIC TO IV DYE? NO . ANY NEW ALLERGIES? NO . PSYCHIATRIC: DO YOU HAVE THOUGHTS OF HURTING YOURSELF OR SOMEONE ELSE? NO . ARE YOU ABUSED, NEGLECTED, OR IN AN UNSAFE ENVIRONMENT? NO . ENDOCRINOLOGY: ARE YOU DIABETIC? YES . OTHER: DO YOU NEED ANY PRESCRIPTIONS? PT WANTS TO DISCUSS MEDICATIONS . IF YES, PLEASE LIST: ____ . ANY NEW PROBLEMS WITH YOUR MEDICATIONS? NO . WHEN DID YOU LAST EAT? ____ . WHEN DID YOU LAST DRINK? ____ . WHAT DID YOU LAST DRINK? ____ . NAME OF PERSON DRIVING YOU HOME? ____ . DO YOU HAVE ANY OTHER QUESTIONS OR CONCERNS NO . VITAL SIGNS WT 257.0 LBS, HT 74 IN, BMI 32.99 INDEX, BP 165/100 MM HG, HR 85 /MIN, RR 18 /MIN, TEMP 96.0 F, OXYGEN SAT % 97%, NA INITIALS AW 1004LET NURSE KNOW ABOUT BP. EXAMINATION GENERAL EXAMINATION: GENERALNO ACUTE DISTRESS, WELL NOURISHED AND HYDRATED. PSYCHAPPROPRIATE MOOD AND AFFECT . LUNGS:CLEAR TO AUSCULTATION BILATERALLY, NO WHEEZES, RHONCHI, RALES. HEART:NO MURMURS, REGULAR RATE AND RHYTHM. 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 GIVEN PRESENTING SYMPTOMS AND RESULTS OF PHYSICAL EXAMINATION RECOMMENDED CONTINUATION OF HYDROCODONE 1 TABLET EVERY OTHER DAY NEEDED FOR PAIN UNTIL THE END OF THIS MONTH THEN STOP. FURTHER RECOMMENDED INCREASING BUTRANS PATCH TO 20 MCG WEEKLY. WE'LL FOLLOW-UP IN 2 MONTHS. PATIENT HAS EXPRESSED UNDERSTANDING OF AND WAS IN AGREEMENT WITH TREATMENT PLAN. GIVEN TIME TO ASK QUESTIONS AND ADDRESS CONCERNS., ISTOP REGISTRY REVIEWED AND DEMONSTRATES COMPLLIANCE. (REF # [id number] ) BRINGS IN MEDICATIONS WHICH IS APPROPRIATE FOR WHAT WAS DISPENSED. RECENT URINE TOXICOLOGY REVIEWED. NO UNAUTHORIZED MEDICATIONS. NO ILLICIT SUBSTANCES AND PRESCRIBED MEDICATIONS WERE PRESENT. PROCEDURE CODES FA211 ESTABILISHED PATIENT [facility] CHARGE DISPOSITION & COMMUNICATION FOLLOW UP 2 MONTHS (REASON: BACK PAIN) ELECTRONICALLY SIGNED BY KOJO LEONARD ON 07/04/2019 AT 02:04 PM EST DISCLAIMER : THIS IS A VISIT SUMMARY EXTRACTED FROM THE [email or web address] CHART. IT IS NOT A COPY OF THE [employer] PROGRESS NOTE. TAJD
== END ==
LOC: M PAIN 10:00
PROVIDERS: ATTEND Family Medicine
DX: M47.817 Spondylosis without myelopathy or radiculopathy, lumbosacral region (principal)

== ENCOUNTER → 2019-08-24 | Outpatient (CLI) | payer MEDICARE ==
[~2019-08-24] MED LIST changes: +LORA2TAB14 PO; -LORA2TAB9 PO
--- NOTE | 2019-08-24 14:09 | REP ---
Clinical: Wheezing . Comparison: 04/20/2019 . Technique: PA and lateral. Findings: The mediastinum and cardiac silhouette are normal. The lung hall are clear and without acute consolidation, effusion, or pneumothorax. The skeletal structures are intact and normal. Impression: 1. No acute cardiopulmonary process. Electronically Signed by Dayo Stevenson MD 08/24/2019 02:00 P
== END ==
LOC: M LRY 13:42
PROVIDERS: ATTEND Family Medicine
DX: R06.2 Wheezing (principal)
CPT/HCPCS: 71046; 87804; G0463

== ENCOUNTER → 2019-09-07 | Outpatient (CLI) | payer MEDICARE ==
--- NOTE | 2019-09-13 07:16 | ECWPNPC ---
PATIENT NAME: TAMIR JASSO : 1955 GENDER: MALE VISIT DATE: 09/07/2019 DISCHARGE DATE: 09/07/19 1014 VISIT LOCKED DATE TIME: PHYSICIAN: KARLIE MOROCHO RESOURCE: KARLIE MOROCHO REASON FOR APPOINTMENT 1. 2 MONTHS HISTORY OF PRESENT ILLNESS HISTORY OF PRESENT ILLNESS: PAIN THE PATIENT DESCRIBES THE PAIN... 64-YEAR-OLD MALE IN FOR CHRONIC PAIN FOLLOW-UP. HE FEELS MEDICATIONS ARE WORKING WELL AND DENIES MED SIDE EFFECTS AT THIS TIME. HE RATES HIS PAIN CURRENTLY AT A 6 OUT OF 10 AND DESCRIBES IT ACHING, SHARP, AND BURNING. FALL RISK SCREENING: SCREENING :NO FALLS REPORTED IN THE LAST YEAR CURRENT MEDICATIONS TAKING EPIPEN 0.3 MG/0.3ML DEVICE USE DIRECTED INJECTION AT FIRST SIGN OF ANAPHYLAXIS AND GO TO ED. TAKING ALCOHOL PREP PAD 70 % PAD USE 1 PAD TOPICALLY WHEN TESTING BLOOD SUGAR UP TO BID (DX: 250.00) TAKING FLECAINIDE ACETATE 100 MG TABLET 1 TABLET ORALLY BID TAKING ELIQUIS 5 MG TABLET ORALLY BID TAKING ONE TOUCH ULTRA TEST STRIPS ULTRA MINI STRIPS USE 1 TEST STRIP . TO TEST BLOOD SUGAR UP TO BID (DX: 250.00) TAKING ATIVAN 2 MG TABLET 1TAB ORALLY QID PRN MDD=4 TAKING CARVEDILOL 12.5 MG TABLET 1 CAP ORALLY BID TAKING DILTIAZEM HCL 30 MG TABLET 2 TABLET BEFORE MEALS ORALLY BID TAKING ONE TOUCH DELICA 33 GAUGE LANCETS USE 1 LANCET SUBCUTANEOUSLY TO TEST BLOOD SUGAR UP TO BID. (ICD10 E11.65) TAKING METFORMIN HCL 500 MG TABLET 1 TABLET WITH A MEAL ORALLY ONCE A DAY TAKING BUTRANS 20 MCG/HR PATCH WEEKLY 1 PATCH TO SKIN TRANSDERMAL WEEKLY TAKING BLOOD GLUCOSE TEST - STRIP DIRECTED IN VITRO DAILY NOT-TAKING INDOCIN 50 MG CAPSULE 1 CAPSULE WITH FOOD ORALLY THREE TIMES A DAY FOR GOUT FLARE NEEDED MEDICATION LIST REVIEWED AND RECONCILED WITH THE PATIENT PAST MEDICAL HISTORY LBP HLP ANXIETY H/O HEPATITIS C (PREVIOUSLY TREATED AND CURRENTLY UNDETECTABLE) H/O GOUT PAROXYSMAL A-FIB (FOLLOWED BY DR. MONTES) HYPERTENSION HYPERLIPIDEMIA ARTHRITIS DM A-FIB KIDNEY STONES UTI SEPSIS OAB ALLERGIES ASPIRIN: UPSET STOMACH - SIDE EFFECTS BUSPAR: UNRESPONSIVENESS BEE STING: ALLERGIC REACTION - ALLERGY SURGICAL HISTORY NO PERSONAL OR FHX OF SEVERE REACTION TO ANESTHESIA TRIGGER FINGER BILAT (SOS, DR. OVALLES) COLONOSCOPY (REPEAT IN 10YRS) 07/26/2012 DISKECTOMY 08/2014 TLIF AT [facility] 06/25/15 LASER LITHO WITH LEFT STENT PLACEMENT 02/01/2018 CYSTO WITH LEFT STENT REMOVAL 02/08/2018 LASER LITHO WITH LEFT STENT PLACEMENT 06/03/2018 URETEROSCOPY W/ LASER LITHOTRIPSY 07/26/2018 NECK SURGERY/CYST REMOVAL 02/02/2019 RIGHT ELBOW GOUT REMOVED 04/2019 FAMILY HISTORY FATHER: 66 YRS, [place], DIAGNOSED WITH UNSPECIFIED HEART DISEASE MOTHER: 55 YRS, MULTIPLE MYELOMA, OTHER MALIGNANT NEOPLASM OF UNSPECIFIED SITE SIBLINGS: ALIVE, BROTHERS (2) - OA X 2 SISTERS (2) - OA X 2 2 BROTHER(S) , 2 SISTER(S) . NO CHILDREN. DENIES FAMILY HX OF PANCREATIC CANCER, MOTHER OF MELANOMASISTER HAS PULMONARY FIBROSIS. SOCIAL HISTORY GENERAL: TOBACCO USE ARE YOU A:FORMER SMOKER HOW LONG HAS IT BEEN SINCE YOU LAST SMOKED?> 10 YEARS HIV / HEP-C SCREENING HIV TEST OFFERED TO PATIENT:YES DATE OFFERED:04/06/2019 TEST ACCEPTED:NO HEP-C TEST OFFERED TO PATIENT:YES DATE OFFERED:04/06/2019 REASON:PATIENT DECLINED TEST ACCEPTED:NO REASON:PATIENT DECLINED BROCHURE PROVIDED TO PATIENTYES OTHERS AT HOME: SPOUSE. HOUSING: OWNS HOME. EDUCATION LEVEL OF EDUCATION:HIGH SCHOOL DIET: REGULAR DIET, AVOIDS "JUNK FOOD". LANGUAGE LANGUAGES SPOKEN:DUTCH DOMESTIC VIOLENCE DO YOU FEEL SAFE IN YOUR ENVIRONMENT?YES RECREATIONAL DRUG USE DRUG USE?NO EXERCISE: NO REGULAR EXERCISE, BUT DOES BARN CHORES. LEARNING BARRIERS / SPECIAL NEEDS CHANGE FROM LAST VISIT?NO 02/15/2019, 04/19/19 BARRIERS TO LEARNING?NO HEARING IMPAIRED?NO VISION IMPAIRED?YES COGNITIVELY IMPAIRED?NO :CORRECTIVE LENSES READINESS TO LEARN?YES LEARNING PREFERENCES?NO LEARNING CAPABILITIES PRESENT?YES EMOTIONAL BARRIERS?NO SPECIAL DEVICES?NO DROP WIRE ALINER NEEDED?NO PAIN CLINIC PFS, CLERGY, PUBLIC HEALTH REFERRALS WAS THE PROVIDER NOTIFIED OF ANY PERTINENT INFO?YES HAS THE PATIENT BEEN EDUCATED REGARDING HIS/HER PLAN OF CARE?YES HAS THE PATIENT BEEN EDUCATED REGARDING PAIN, THE RISK FOR PAIN, THE IMPORTANCE OF EFFECTIVE PAIN MANAGEMENT, AND THE PAIN ASSESSMENT PROCESS?YES LATEX QUESTIONNAIRE LATEX ALLERGY : HAVE YOU EVER DEVELOPED ANY TYPE OF REACTION AFTER HANDLING LATEX PRODUCTS SUCH RUBBER GLOVES, CONDOMS, DIAPHRAGMS, BALLOONS, SOCKS, OR UNDERWEAR?NO LATEX ALLERGY : HAVE YOU EVER DEVELOPED ANY TYPE OF REACTION DURING OR AFTER DENTAL APPOINTMENT, VAGINAL/RECTAL EXAMINATION, SURGICAL PROCEDURE, OR ANY OTHER EXPOSURE?NO DATE ASKED : 04/08/2019 LATEX RISK : HAVE YOU EVER HAD ANY DIFFICULTY BREATHING OR HIVES AFTER EATING OR HANDLING ANY FRUITS, OR VEGETABLES; SUCH KIWI, BANANAS, STONE FRUITS, OR CHESTNUTSNO LATEX RISK : DO YOU HAVE A PREVIOUS PERSONAL HISTORY OF MORE THAN NINE SURGERIES, SPINA BIFIDA, OR REPEATED CATHERIZATIONS? NO LATEX RISK : ARE YOU FREQUENTLY EXPOSED TO LATEX PRODUCTS IN YOUR OCCUPATION?NO CAFFEINE 2-5/DAY. ADVANCE DIRECTIVE ADVANCE DIRECTIVE DISCUSSED WITH PATIENT:YES PT DOES NOT HAVE ANY ADVANCE DIRECTIVES AND HE DECLINES INFORMATION ON HCP AT THIS TIME. NONDENOMINATIONAL [id number] HINDU MARITAL STATUS: . ALCOHOL SCREENING POINTS: 4, INTERPRETATION: POSITIVE. 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 SEXUAL HX HAD SEX IN THE LAST 12 MONTHS (VAGINAL, ORAL, OR ANAL)?: NO, HAVE YOU EVER HAD AN STD?: NO. 05/04/18 1214 REVIEWED WITH PT. AD. HOSPITALIZATION/MAJOR DIAGNOSTIC PROCEDURE CELLULITIS/[place]LEBITIS ([facility] [place]) 1976 TRIGGER FINGER SURGERY 2000 [facility]-BUSPAR REACTION 11/2014 [facility]-NECK AND BACK SURGERY 06/2015 UROSEPSIS, KIDNEY STONE 05/2018 REVIEW OF SYSTEMS REVIEWED BY: PROVIDER: CHANELL VARMA-Jaquelin . CONSTITUTIONAL: ANY CHANGE IN YOUR MEDICAL CONDITION? NO . CHILLS NO . FEVER NO . INFECTION: DO YOU HAVE NEW INFECTIONS? NO . DO YOU HAVE HISTORY OF MRSA? NO . MUSCULOSKELETAL: ANY NEW PATTERNS OF PAIN OR NUMBNESS? NO . GASTROENTEROLOGY: ANY NEW CHANGE IN BOWEL CONTROL? NO . GENITOURINARY: ANY NEW CHANGE IN BLADDER CONTROL? NO . IS THERE A CHANCE YOU COULD BE ? NO . HEMATOLOGY/LYMPH: DO YOU TAKE ANY BLOOD THINNERS? (FOR EXAMPLE- COUMADIN, PLAVIX, AGGRENOX, PLATEL, PRADAXA, OR XARELTO) YES, ELIQUIS . WHEN WAS YOUR LAST DOSE? DATE: TIME: . NEUROLOGY: HAVE YOU FALLEN IN THE PAST 12 MONTHS? NO . ANY NEW EXTREMITY NUMBNESS OR WEAKNESS? YES, RIGHT LEG PAIN . CARDIOLOGY: DO YOU HAVE A PACEMAKER OR DEFIBRILLATOR? NO . RESPIRATORY: HAVE YOU BEEN SICK IN THE PAST WEEK? NO . FEVER NO . FLU LIKE SYMPTOMS? NO . COUGH NO . INTEGUMENTARY: DO YOU HAVE ANY RASHES OR OPEN SORES? NO . ALLERGIC/IMMUNO: ARE YOU ALLERGIC TO IV DYE? NO . ANY NEW ALLERGIES? NO . PSYCHIATRIC: DO YOU HAVE THOUGHTS OF HURTING YOURSELF OR SOMEONE ELSE? NO . ARE YOU ABUSED, NEGLECTED, OR IN AN UNSAFE ENVIRONMENT? NO . ENDOCRINOLOGY: ARE YOU DIABETIC? YES . OTHER: DO YOU NEED ANY PRESCRIPTIONS? BUTRANS . IF YES, PLEASE LIST: ____ . ANY NEW PROBLEMS WITH YOUR MEDICATIONS? NO . WHEN DID YOU LAST EAT? ____ . WHEN DID YOU LAST DRINK? ____ . WHAT DID YOU LAST DRINK? ____ . NAME OF PERSON DRIVING YOU HOME? ____ . DO YOU HAVE ANY OTHER QUESTIONS OR CONCERNS NO . VITAL SIGNS WT 252.7 LBS, HT 74 IN, BMI 32.44 INDEX, BP 113/66 MM HG, HR 63 /MIN, RR 18 /MIN, TEMP 96.3 F, OXYGEN SAT % 96%, SAFE IN ENV? (Y/N) Y, NA INITIALS AW 0948, REVIEWED BY: EM. EXAMINATION GENERAL EXAMINATION: GENERALNO ACUTE DISTRESS, WELL NOURISHED AND HYDRATED. PSYCHAPPROPRIATE MOOD AND AFFECT . LUNGS:CLEAR TO AUSCULTATION BILATERALLY, NO WHEEZES, RHONCHI, RALES. HEART:NO MURMURS, REGULAR RATE AND RHYTHM. ASSESSMENTS SPONDYLOSIS OF LUMBAR REGION WITHOUT MYELOPATHY OR RADICULOPATHY - M47.816 (PRIMARY) TREATMENT SPONDYLOSIS OF LUMBAR REGION WITHOUT MYELOPATHY OR RADICULOPATHY REFILL BUTRANS PATCH WEEKLY, 20 MCG/HR, 1 PATCH TO SKIN, TRANSDERMAL, WEEKLY, 30 DAYS, 4 CLINICAL NOTES: 64-YEAR-OLD MALE IN FOR CHRONIC PAIN FOLLOW-UP. GIVEN PRESENTING SYMPTOMS AND RESULTS OF PHYSICAL EXAMINATION RECOMMENDED CONTINUATION CURRENT MEDICATION REGIMEN WITH FOLLOW-UP IN 3 MONTHS. PATIENT EXPRESSED UNDERSTANDING OF AND WAS IN AGREEMENT WITH TREATMENT PLAN. GIVEN TIME TO ASK QUESTIONS AND EXPRESS CONCERNS., ISTOP REGISTRY REVIEWED AND DEMONSTRATES COMPLLIANCE. (REF # [id number] ) BRINGS IN MEDICATIONS WHICH IS APPROPRIATE FOR WHAT WAS DISPENSED. RECENT URINE TOXICOLOGY REVIEWED. NO UNAUTHORIZED MEDICATIONS. NO ILLICIT SUBSTANCES AND PRESCRIBED MEDICATIONS WERE PRESENT. PROCEDURE CODES FA211 ESTABILISHED PATIENT WORSHIP FACILITY CHARGE DISPOSITION & COMMUNICATION FOLLOW UP 3 MONTHS (REASON: BACK PAIN) ELECTRONICALLY SIGNED BY KOJO LEONARD ON 09/12/2019 AT 10:51 AM EST DISCLAIMER : THIS IS A VISIT SUMMARY EXTRACTED FROM THE [employer] CHART. IT IS NOT A COPY OF THE [employer] PROGRESS NOTE. NOE
== END ==
LOC: M PAIN 10:15
PROVIDERS: ATTEND Family Medicine
DX: M47.816 Spondylosis without myelopathy or radiculopathy, lumbar region (principal)

== ENCOUNTER → 2019-10-13 | Outpatient (REF) | payer MEDICARE ==
[2019-10-13 16:13] LABS: BASO # 0.1 10^3/uL (0.0-0.2); BASO % 0.8 % (0.0-1.0); EOS # 0.4 10^3/uL (0.0-0.5); HEMATOCRIT 46.9 % (42.0-52.0); HEMOGLOBIN 15.4 g/dl (13.5-17.5); LYMPH % 24.4 % (24.0-44.0); MEAN CORPUSCULAR HEMOGLOBIN 29.2 pg (27.0-33.0); MEAN CORPUSCULAR HGB CONC 32.8 g/dl (32.0-36.5); MEAN CORPUSCULAR VOLUME 88.8 fl (80.0-96.0); NEUTROPHILS # 7.8 10^3/uL (1.5-8.5); NEUTROPHILS % 63.4 % (36.0-66.0); PLATELET COUNT, AUTOMATED 260 10^3/uL (150-450); RED BLOOD COUNT 5.28 10^6/uL (4.30-6.10); WHITE BLOOD COUNT 12.4 10^3/uL (4.0-10.0)
[2019-10-13 16:38] LABS: BLOOD UREA NITROGEN 18 MG/DL (7-18); CALCIUM LEVEL 8.9 MG/DL (8.8-10.2); CARBON DIOXIDE LEVEL 26 MEQ/L (21-32); CHLORIDE LEVEL 106 MEQ/L (98-107); CHOLESTEROL LEVEL 194 MG/DL (<200); CHOLESTEROL RISK RATIO 3.403 (<5); CREATININE FOR GFR 1.04 MG/DL (0.70-1.30); GLOMERULAR FILTRATION RATE > 60.0 (>49); GLUCOSE, FASTING 115 MG/DL (70-100); HDL CHOLESTEROL 57 MG/DL (>40); LDL CHOLESTEROL 105 MG/DL (<100); NON-HDL-C 137 MG/DL; POTASSIUM SERUM 4.6 MEQ/L (3.5-5.1); SODIUM LEVEL 138 MEQ/L (136-145); TRIGLYCERIDES LEVEL 160 MG/DL (<150)
[2019-10-13 16:46] LABS: MALB URINE SIEMENS 10.7 MG/L; MAU/CREAT RATIO 7.1 MCG/MG (0.0-30.0); VITAMIN B12 LEVEL 714 PG/ML (247-911)
[2019-10-13 16:50] LABS: HEMOGLOBIN A1c 7.1 %
[2019-10-18 10:06] LABS: HEPATITIS C QUANTITATION HCV Not Detected IU/mL (.)
== END ==
LOC: M SFHCLERA 14:01
PROVIDERS: ATTEND Family Medicine
DX: E11.9 Type 2 diabetes mellitus without complications (principal); E78.2 Mixed hyperlipidemia; Z86.19 Personal history of other infectious and parasitic diseases
CPT/HCPCS: 80048; 80061; 82043; 82607; 83036; 85025; 86803; 87521; 87522; G0463

== ENCOUNTER → 2019-12-13 | Outpatient (CLI) | payer MEDICARE ==
[~2019-12-13] MED LIST changes: -METF-791 PO; +METF-838 PO
--- NOTE | 2019-12-15 02:59 | ECWPNPC ---
PATIENT NAME: TAMIR JASSO : 1955 GENDER: MALE VISIT DATE: 12/13/2019 DISCHARGE DATE: 12/13/19 1225 VISIT LOCKED DATE TIME: PHYSICIAN: KARLIE MOROCHO RESOURCE: KARLIE MOROCHO REASON FOR APPOINTMENT 1. BACK- IN OFFICE-LATE D/T ACCIDENT HISTORY OF PRESENT ILLNESS GENERAL: -64-YEAR-OLD MALE IN FOR CHRONIC PAIN FOLLOW-UP. HE RATES HIS PAIN CURRENTLY AT A 6 OUT OF 10 AND DESCRIBES IT ACHING, SHARP, AND THROBBING. PATIENT ADMITS TODAY THAT HE HAS TAKEN HIMSELF OFF ALL MEDICATIONS AND DOES NOT WISH TO RESTART THEM. HE WOULD LIKE TO DISCUSS THE MILD PROCEDURE FURTHER. PAIN SCREENING: PATIENT HAS A COMPLAINT OF ACUTE OR CHRONIC PAIN :YES LOCATION OF PAIN:LOW BACK INTENSITY OF PAIN (SCALE OF 1 TO 10):6 WHAT DOES YOUR PAIN FEEL LIKE:ACHING, SHARP, THROBBING DURATION:CONTINOUS, CONSTANT, ALL DAY, AWAKENS FROM SLEEP PAIN IS INCREASED BY:ACTIVITIES, PROLONGED STANDING PAIN IS DECREASED BY:USE OF PAIN MEDICATIONS LEVEL OF RELIEF FROM PAIN TREATMENTS IN THE PAST:50% PLAN/GOALS/TREATMENT/INTERVENTION/FOLLOW UP:SEE PLAN FALL RISK SCREENING: SCREENING :NO FALLS REPORTED IN THE LAST YEAR DEPRESSION SCREENING: PHQ-2 (2015 EDITION) LITTLE INTEREST OR PLEASURE IN DOING THINGS?NOT AT ALL FEELING DOWN, DEPRESSED, OR HOPELESS?NOT AT ALL TOTAL SCORE0 PAIN CENTER INTAKE QUESTIONS: DO YOU HAVE A HISTORY OF MRSA? :NO DO YOU TAKE A BLOOD THINNERS? :YES ELIQUIS 6:30AM DO YOU HAVE ANY BLEEDING DISORDERS? :NO ANY NEW NUMBNESS OR WEAKNESS IN YOUR LEGS OR ARMS? :NO ANY PACEMAKER,DEFIBRILLATOR, OR DORSAL COLUMN STIMULATOR? :NO DO YOU HAVE ANY RASHES OR OPEN SORES? :NO ARE YOU ALLERGIC TO IV DYE? :NO ARE YOU DIABETIC? :NO ANY NEW PROBLEMS WITH YOUR MEDICATIONS? :NO HAVE YOU RECEIVED A VACCINE IN THE PAST 30 DAYS? :NO DO YOU PLAN TO RECEIVE A VACCINE IN THE NEXT 21 DAYS? :NO DO YOU NEED ANY PRESCRIPTION? :NO DO YOU TAKE ANY IMMUNOSUPPRESSIVE MEDICATIONS? :NO NURSING NOTE: PT. C/O RIGHT KNEE PAIN.-. CURRENT MEDICATIONS TAKING EPIPEN 0.3 MG/0.3ML DEVICE USE DIRECTED INJECTION AT FIRST SIGN OF ANAPHYLAXIS AND GO TO ED. TAKING ALCOHOL PREP PAD 70 % PAD USE 1 PAD TOPICALLY WHEN TESTING BLOOD SUGAR UP TO BID (DX: 250.00) TAKING FLECAINIDE ACETATE 100 MG TABLET 1 TABLET ORALLY BID TAKING ELIQUIS 5 MG TABLET ORALLY BID TAKING ONE TOUCH ULTRA TEST STRIPS ULTRA MINI STRIPS USE 1 TEST STRIP . TO TEST BLOOD SUGAR UP TO BID (DX: 250.00) TAKING ATIVAN 2 MG TABLET 1TAB ORALLY QID PRN MDD=4 TAKING CARVEDILOL 12.5 MG TABLET 1 CAP ORALLY BID TAKING DILTIAZEM HCL 30 MG TABLET 2 TABLET BEFORE MEALS ORALLY BID TAKING ONE TOUCH DELICA 33 GAUGE LANCETS USE 1 LANCET SUBCUTANEOUSLY TO TEST BLOOD SUGAR UP TO BID. (ICD10 E11.65) TAKING BLOOD GLUCOSE TEST - STRIP DIRECTED IN VITRO DAILY TAKING IRBESARTAN 150 MG TABLET 1 TABLET ORALLY ONCE A DAY, NOTES: SIMON PT TAKING 1/2 TAB TAKING ROSUVASTATIN CALCIUM 5 MG TABLET 1 TABLET ORALLY ONCE A DAY TAKING BELBUCA 150 MCG FILM 1 FILM TO THE GUM BUCALLY EVERY 12 HRS TAKING METFORMIN HCL 500 MG TABLET 1 TABLET WITH A MEAL ORALLY BID, NOTES: CODE 07 NOT-TAKING INDOCIN 50 MG CAPSULE 1 CAPSULE WITH FOOD ORALLY THREE TIMES A DAY FOR GOUT FLARE NEEDED MEDICATION LIST REVIEWED AND RECONCILED WITH THE PATIENT PAST MEDICAL HISTORY LBP HLP, ASCVD 27.4% 10/2019 ANXIETY H/O HEPATITIS C (PREVIOUSLY TREATED AND CURRENTLY UNDETECTABLE) H/O GOUT PAROXYSMAL A-FIB (FOLLOWED BY DR. MONTES) HYPERTENSION, GOAL 140/90 HYPERLIPIDEMIA ARTHRITIS DM, TYPE 2 A1C GOAL 7%, METFORMIN A-FIB KIDNEY STONES UTI SEPSIS OAB ALLERGIES ASPIRIN: UPSET STOMACH - SIDE EFFECTS BUSPAR: UNRESPONSIVENESS BEE STING: ALLERGIC REACTION - ALLERGY SURGICAL HISTORY NO PERSONAL OR FHX OF SEVERE REACTION TO ANESTHESIA TRIGGER FINGER BILAT (SOS, DR. OVALLES) 1999S COLONOSCOPY (REPEAT IN 10YRS) 07/26/2012 DISKECTOMY 08/2014 TLIF AT [facility] 06/25/15 LASER LITHO WITH LEFT STENT PLACEMENT 02/01/2018 CYSTO WITH LEFT STENT REMOVAL 02/08/2018 LASER LITHO WITH LEFT STENT PLACEMENT 06/03/2018 URETEROSCOPY W/ LASER LITHOTRIPSY 07/26/2018 NECK SURGERY/CYST REMOVAL 02/02/2019 RIGHT ELBOW GOUT REMOVED 04/2019 FAMILY HISTORY FATHER: 66 YRS, [place], DIAGNOSED WITH UNSPECIFIED HEART DISEASE MOTHER: 55 YRS, MULTIPLE MYELOMA, OTHER MALIGNANT NEOPLASM OF UNSPECIFIED SITE SIBLINGS: ALIVE, BROTHERS (2) - OA X 2 SISTERS (2) - OA X 2 2 BROTHER(S) , 2 SISTER(S) . NO CHILDREN. DENIES FAMILY HX OF PANCREATIC CANCER, MOTHER OF MELANOMASISTER HAS PULMONARY FIBROSIS. SOCIAL HISTORY GENERAL: TOBACCO USE ARE YOU A:FORMER SMOKER HOW LONG HAS IT BEEN SINCE YOU LAST SMOKED?> 10 YEARS LATEX QUESTIONNAIRE LATEX ALLERGY : HAVE YOU EVER DEVELOPED ANY TYPE OF REACTION AFTER HANDLING LATEX PRODUCTS SUCH RUBBER GLOVES, CONDOMS, DIAPHRAGMS, BALLOONS, SOCKS, OR UNDERWEAR?NO LATEX ALLERGY : HAVE YOU EVER DEVELOPED ANY TYPE OF REACTION DURING OR AFTER DENTAL APPOINTMENT, VAGINAL/RECTAL EXAMINATION, SURGICAL PROCEDURE, OR ANY OTHER EXPOSURE?NO LATEX RISK : HAVE YOU EVER HAD ANY DIFFICULTY BREATHING OR HIVES AFTER EATING OR HANDLING ANY FRUITS, OR VEGETABLES; SUCH KIWI, BANANAS, STONE FRUITS, OR CHESTNUTSNO LATEX RISK : DO YOU HAVE A PREVIOUS PERSONAL HISTORY OF MORE THAN NINE SURGERIES, SPINA BIFIDA, OR REPEATED CATHERIZATIONS? NO LATEX RISK : ARE YOU FREQUENTLY EXPOSED TO LATEX PRODUCTS IN YOUR OCCUPATION?NO DATE ASKED : 12/13/2019 ALCOHOL SCREENING POINTS: 4, INTERPRETATION: POSITIVE. RECREATIONAL DRUG USE DRUG USE?NO CAFFEINE 2-5/DAY. SEXUAL HX HAD SEX IN THE LAST 12 MONTHS (VAGINAL, ORAL, OR ANAL)?: NO, HAVE YOU EVER HAD AN STD?: NO. HIV / HEP-C SCREENING HIV TEST OFFERED TO PATIENT:YES DATE OFFERED:04/06/2019 TEST ACCEPTED:NO HEP-C TEST OFFERED TO PATIENT:YES DATE OFFERED:04/06/2019 REASON:PATIENT DECLINED TEST ACCEPTED:NO REASON:PATIENT DECLINED BROCHURE PROVIDED TO PATIENTYES HINDU [id number] TENRIISM LANGUAGE LANGUAGES SPOKEN:[place] EDUCATION LEVEL OF EDUCATION:HIGH SCHOOL LEARNING BARRIERS / SPECIAL NEEDS CHANGE FROM LAST VISIT?NO 02/15/2019, 04/19/19 BARRIERS TO LEARNING?NO HEARING IMPAIRED?NO VISION IMPAIRED?YES COGNITIVELY IMPAIRED?NO :CORRECTIVE LENSES READINESS TO LEARN?YES LEARNING PREFERENCES?NO LEARNING CAPABILITIES PRESENT?YES EMOTIONAL BARRIERS?NO SPECIAL DEVICES?NO AVIONICS REPAIR TECHNICIAN NEEDED?NO DOMESTIC VIOLENCE DO YOU FEEL SAFE IN YOUR ENVIRONMENT?YES 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 DIET: REGULAR DIET, AVOIDS "JUNK FOOD". EXERCISE: NO REGULAR EXERCISE, BUT DOES BARN CHORES. MARITAL STATUS: . OTHERS AT HOME: SPOUSE. PAIN CLINIC PFS, CLERGY, PUBLIC HEALTH REFERRALS WAS THE PROVIDER NOTIFIED OF ANY PERTINENT INFO?YES HAS THE PATIENT BEEN EDUCATED REGARDING HIS/HER PLAN OF CARE?YES HAS THE PATIENT BEEN EDUCATED REGARDING PAIN, THE RISK FOR PAIN, THE IMPORTANCE OF EFFECTIVE PAIN MANAGEMENT, AND THE PAIN ASSESSMENT PROCESS?YES HOUSING: OWNS HOME. ADVANCE DIRECTIVE ADVANCE DIRECTIVE DISCUSSED WITH PATIENT:YES PT DOES NOT HAVE ANY ADVANCE DIRECTIVES AND HE DECLINES INFORMATION ON HCP AT THIS TIME. HOSPITALIZATION/MAJOR DIAGNOSTIC PROCEDURE CELLULITIS/PHLEBITIS ([facility]) 1976 TRIGGER FINGER SURGERY [facility]-BUSPAR REACTION 11/2014 [facility]-NECK AND BACK SURGERY 06/2015 UROSEPSIS, KIDNEY STONE 05/2018 REVIEW OF SYSTEMS CONSTITUTIONAL: ANY RECENT FEVER OR ILLNESS NO . CHILLS NO . GASTROENTEROLOGY: BOWEL INCONTINENCE NO . ANY NEW CHANGE IN BOWEL CONTROL? NO . ABDOMINAL PAIN NO . CONSTIPATION NO . GENITOURINARY: ANY NEW CHANGE IN BLADDER CONTROL? NO . IS THERE A CHANCE YOU COULD BE ? NO . URINARY INCONTINENCE NO . CARDIOLOGY: CHEST PRESSURE NO . CHEST PAIN NO . RESPIRATORY: COUGH NO . SHORTNESS OF BREATH NO . VITAL SIGNS WT 243 LBS, HT 74 IN, BMI 31.20 INDEX, BP 148/79 MM HG, HR 80 /MIN, RR 18 /MIN, TEMP 96.0 F, OXYGEN SAT % 98%, NA INITIALS AW 1114. EXAMINATION GENERAL EXAMINATION: GENERALNO ACUTE DISTRESS, WELL NOURISHED AND HYDRATED. PSYCHAPPROPRIATE MOOD AND AFFECT . LUNGS:CLEAR TO AUSCULTATION BILATERALLY, NO WHEEZES, RHONCHI, RALES. HEART:NO MURMURS, REGULAR RATE AND RHYTHM. ASSESSMENTS LUMBAR POST-LAMINECTOMY SYNDROME - M96.1 (PRIMARY) TREATMENT LUMBAR POST-LAMINECTOMY SYNDROME [facility] MRI SPINE, L.S. WITH [id number] CLINICAL NOTES: 64-YEAR-OLD MALE IN FOR CHRONIC PAIN FOLLOW-UP. GIVEN PRESENTING SYMPTOMS RECOMMEND FOLLOW-UP WITH DR. Elaine TO DISCUSS MILD PROCEDURE. PATIENT HAS EXPRESSED UNDERSTANDING OF AND WAS IN AGREEMENT WITH TREATMENT PLAN. GIVEN TIME TO ASK QUESTIONS AND EXPRESS CONCERNS. PROCEDURE CODES FA211 ESTABILISHED PATIENT THE [facility] FACILITY CHARGE DISPOSITION & COMMUNICATION FOLLOW UP DR. Elaine (REASON: DISCUSS MILD PROCEDURE, LS MRI) ELECTRONICALLY SIGNED BY KOJO LEONARD ON 12/14/2019 AT 08:29 AM EDT DISCLAIMER : THIS IS A VISIT SUMMARY EXTRACTED FROM THE [employer] CHART. IT IS NOT A COPY OF THE [employer] PROGRESS NOTE. NOE
== END ==
LOC: M PAIN 10:45
PROVIDERS: ATTEND Family Medicine
DX: M96.1 Postlaminectomy syndrome, not elsewhere classified (principal); I10 Essential (primary) hypertension; E11.9 Type 2 diabetes mellitus without complications; Z79.84 Long term (current) use of oral hypoglycemic drugs; Z79.899 Other long term (current) drug therapy; Z87.891 Personal history of nicotine dependence; Z88.8 Allergy status to other drugs, medicaments and biological substances; Z91.030 Bee allergy status

== ENCOUNTER → 2019-12-25 | Outpatient (CLI) | payer MEDICARE ==
[~2019-12-25] MED LIST changes: +DIAZ5TAB PO; +IRBE150T7 PO; +PROV108A INH
[2019-12-25 11:09] LABS: BLOOD UREA NITROGEN 23 MG/DL (7-18); CREATININE FOR GFR 1.17 MG/DL (0.70-1.30); GLOMERULAR FILTRATION RATE > 60.0 (>49)
== END ==
LOC: M LAB 10:14
PROVIDERS: ATTEND Family Medicine
DX: M96.1 Postlaminectomy syndrome, not elsewhere classified (principal)

== ENCOUNTER 2019-12-27 10:12 | Emergency (ER) | payer MEDICARE ==
[~2019-12-27 10:12] MED LIST changes: -DIAZ5TAB PO; -IRBE150T7 PO; -PROV108A INH
[2019-12-27 11:24] LABS: VENOUS BASE EXCESS -4.9 (-2.0-2.0); VENOUS HCO3 19.4 MEQ/L (23.0-27.0); VENOUS PARTIAL PRESSURE CO2 34.3 mmHg (38.0-50.0); VENOUS PARTIAL PRESSURE O2 80.8 mmHg (30.0-50.0); VENOUS PH 7.371 UNITS (7.330-7.430); VENOUS STANDARD HCO3 20.4 MEQ/L; VENOUS TOTAL CO2 20.5 MEQ/L (24.0-28.0)
[2019-12-27] MEDS ORDERED: ALBUTEROL 90 MCG/ACT 8GM HFA INHALER INH ONE (11:30)
[2019-12-27 11:32] LABS: BASO # 0.1 10^3/uL (0.0-0.2); BASO % 1.1 % (0.0-1.0); EOS # 0.8 10^3/uL (0.0-0.5); EOS % 8.3 % (0.0-3.0); HEMATOCRIT 44.8 % (42.0-52.0); HEMOGLOBIN 14.5 g/dl (13.5-17.5); LYMPH # 2.7 10^3/uL (1.5-5.0); LYMPH % 27.7 % (24.0-44.0); MEAN CORPUSCULAR HEMOGLOBIN 28.7 pg (27.0-33.0); MEAN CORPUSCULAR HGB CONC 32.4 g/dl (32.0-36.5); MEAN CORPUSCULAR VOLUME 88.5 fl (80.0-96.0); MONO # 0.7 10^3/uL (0.0-0.8); MONO % 7.7 % (0.0-5.0); NEUTROPHILS # 5.3 10^3/uL (1.5-8.5); NEUTROPHILS % 54.8 % (36.0-66.0); PLATELET COUNT, AUTOMATED 251 10^3/uL (150-450); RED BLOOD COUNT 5.06 10^6/uL (4.30-6.10); WHITE BLOOD COUNT 9.7 10^3/uL (4.0-10.0)
[2019-12-27 11:40] LABS: INR 1.19; PROTHROMBIN TIME 14.8 SECONDS (11.8-14.0)
[2019-12-27 11:42] LABS: D-DIMER QUANT 274.4 ng/ml (<500)
[2019-12-27 12:01] LABS: ALBUMIN 3.8 GM/DL (3.2-5.2); ALT/SGPT 72 U/L (12-78); BILIRUBIN,DIRECT < 0.1 MG/DL (0.0-0.2); BILIRUBIN,TOTAL 0.4 MG/DL (0.2-1.0); BLOOD UREA NITROGEN 25 MG/DL (7-18); CALCIUM LEVEL 9.3 MG/DL (8.8-10.2); CARBON DIOXIDE LEVEL 25 MEQ/L (21-32); CHLORIDE LEVEL 107 MEQ/L (98-107); CREATININE FOR GFR 1.37 MG/DL (0.70-1.30); GLOMERULAR FILTRATION RATE 55.5 (>49); GLUCOSE, FASTING 171 MG/DL (70-100); NT-PRO BNP 143 PG/ML (<125); POTASSIUM SERUM 5.2 MEQ/L (3.5-5.1); SODIUM LEVEL 137 MEQ/L (136-145); TOTAL PROTEIN 7.8 GM/DL (6.4-8.2)
[2019-12-27] MEDS ORDERED: DIAZ5TAB PO (12:03)
[2019-12-27] MEDS ORDERED: IRBE150T7 PO (12:03)
--- NOTE | 2019-12-27 12:10 | REP ---
PORTABLE CHEST X-RAY: Sitting AP view. HISTORY: Dyspnea and cough. COMPARISON STUDY: August 24, 2019. FINDINGS: Monitoring electrodes are seen. The patient status post cervical discectomy and fusion plating. There is no visible infiltrate. Pleural angles are sharp. Heart size is normal. Pulmonary vasculature is not increased. IMPRESSION: No acute disease. Electronically Signed by Dae Bella MD 12/27/2019 12:32 P
[2019-12-27 12:32] LABS: BLOOD UREA NITROGEN 26 MG/DL (7-18); CALCIUM LEVEL 9.3 MG/DL (8.8-10.2); CARBON DIOXIDE LEVEL 23 MEQ/L (21-32); CHLORIDE LEVEL 107 MEQ/L (98-107); CREATININE FOR GFR 1.37 MG/DL (0.70-1.30); GLOMERULAR FILTRATION RATE 55.5 (>49); GLUCOSE, FASTING 165 MG/DL (70-100); POTASSIUM SERUM 5.4 MEQ/L (3.5-5.1); SODIUM LEVEL 137 MEQ/L (136-145); TROPONIN I < 0.02 NG/ML (< 0.10)
[2019-12-27] MEDS ORDERED: SOD POLYSTYRENE SULFONATE SUSP 15 GM/60 ML UD PO ONE (13:30)
[2019-12-27] MEDS ORDERED: PROV108A INH (13:31)
[2019-12-27 13:44] VITALS: BP 150/83
--- NOTE | 2019-12-27 21:43 | ECGEPIP ---
[facility] - ED Test Date: 2019-12-27 Pat Name: TAMIR JASSO Department: Room: - Gender: Male [employer] Cook: RENATA : 1955 Requested By: Evelyn Khoury Order Number: [id number] Reading MD: Freddy Vaughan Measurements Intervals Hayden Rate: 54 P: 21 RI: 168 QRS: 38 QRSD: 111 T: 42 QT: 441 QTc: 420 Interpretive Statements SINUS BRADYCARDIA WITH SINUS ARRHYTHMIA MODERATE INTRAVENTRICULAR CONDUCTION DELAY SIMILAR TO 04/20/19 Electronically Signed on 12-27-2019 21:43:15 EDT by Freddy Vaughan
== END 2019-12-27 14:10 | disposition home or self-care (01) ==
LOC: M ED 10:12
DX: R06.2 Wheezing (principal); R00.1 Bradycardia, unspecified; E87.5 Hyperkalemia; E11.9 Type 2 diabetes mellitus without complications; I10 Essential (primary) hypertension; E78.5 Hyperlipidemia, unspecified; G89.29 Other chronic pain; Z79.01 Long term (current) use of anticoagulants; Z79.84 Long term (current) use of oral hypoglycemic drugs; Z79.899 Other long term (current) drug therapy; Z86.79 Personal history of other diseases of the circulatory system; Z88.8 Allergy status to other drugs, medicaments and biological substances

== ENCOUNTER → 2019-12-28 | Outpatient (CLI) | payer MEDICARE ==
[~2019-12-28] MED LIST changes: +DIAZ5TAB PO; +IRBE150T7 PO; +PROHANCE 279.3MG/ML 15ML VIAL As Ordered ONE; +PROHANCE 279.3MG/ML 5ML VIAL As Ordered ONE; +PROV108A INH
--- NOTE | 2019-12-28 16:47 | REP ---
MRI LUMBAR SPINE: 12/28/2019 INDICATION: Low back pain. TECHNIQUE: Multiplanar short and long TR sequences of the lumbar spine were performed including post-gadolinium images. COMPARISON: 08/11/2018 FINDINGS: Arthrodesis at L4-L5 and posterior instrumented fusion/stabilization are noted with associated susceptibility artifact rendering evaluation of the adjacent anatomy suboptimal. Alignment remains stable. There is no compression deformity. The visualized cord is normal. No worrisome marrow signal is detected. There are no areas of worrisome gadolinium enhancement. The previously described degenerative sequelae of the lumbar spine are stable, most pronounced at L3-L4 and L4-L5. Significant degenerative sequelae of facets at L3-L4 result in moderate to severe left greater than right recess narrowing. There is no severe compression of the thecal sac at the postoperative level of L4-L5. IMPRESSION: Postoperative sequelae with surgical hardware rendering evaluation of the adjacent anatomy suboptimal. There is significant left greater than right recess and right neural foraminal narrowing at L3-L4. Electronically Signed by Ori Black DO 12/30/2019 08:41 A
== END ==
LOC: M RAD 10:26
PROVIDERS: ATTEND Family Medicine
DX: M96.1 Postlaminectomy syndrome, not elsewhere classified (principal)
CPT/HCPCS: 72158; A9576

== ENCOUNTER → 2020-01-11 | Outpatient (CLI) | payer MEDICARE ==
[~2020-01-11] MED LIST changes: -PROHANCE 279.3MG/ML 15ML VIAL As Ordered ONE; -PROHANCE 279.3MG/ML 5ML VIAL As Ordered ONE
--- NOTE | 2020-01-13 03:42 | ECWPNPC ---
PATIENT NAME: TAMIR JASSO : 1955 GENDER: MALE VISIT DATE: 01/11/2020 DISCHARGE DATE: 01/11/20 1132 VISIT LOCKED DATE TIME: PHYSICIAN: KARLIE MOROCHO RESOURCE: KARLIE MOROCHO REASON FOR APPOINTMENT 1. MRI REVIEW PAT DONE HISTORY OF PRESENT ILLNESS GENERAL: - PERMISSION REQUESTED AND RECEIVED FROM PATIENT TO PERFORM TELEPHONE VISIT. 64-YEAR-OLD MALE IN FOR CHRONIC PAIN FOLLOW-UP. HE RATES HIS PAIN CURRENTLY AT A 3-4 OUT OF 10. PATIENT HAD A RECENT MRI WHICH WILL BE REVIEWED WITH PATIENT TODAY. FALL RISK SCREENING: SCREENING :NO FALLS REPORTED IN THE LAST YEAR PAIN SCREENING: PATIENT HAS A COMPLAINT OF ACUTE OR CHRONIC PAIN :YES LOCATION OF PAIN:LOW BACK RUNS DOWN RIGHT LEG INTENSITY OF PAIN (SCALE OF 1 TO 10):5 WHAT DOES YOUR PAIN FEEL LIKE:ACHING, CONTINOUS, SHARP DURATION:CONTINOUS, CONSTANT, ALL DAY PAIN IS INCREASED BY:ACTIVITIES, PROLONGED STANDING PAIN IS DECREASED BY:USE OF PAIN MEDICATIONS ALEVE PAIN HAS INTERFERED WITH THE FOLLOWING:MOOD, WALKING ABILITY, HOUSEWORK, RELATIONSHIP WITH OTHERS, ENJOYMENT OF LIFE PLAN/GOALS/TREATMENT/INTERVENTION/FOLLOW UP:SEE PLAN NURSING NOTE: -. PAIN CENTER INTAKE QUESTIONS: DO YOU HAVE A HISTORY OF MRSA? :NO DO YOU TAKE A BLOOD THINNERS? :NO ELIQUIS 5MG BID, 01/10/20, 9AM DO YOU HAVE ANY BLEEDING DISORDERS? :NO ANY NEW NUMBNESS OR WEAKNESS IN YOUR LEGS OR ARMS? :NO ANY PACEMAKER,DEFIBRILLATOR, OR DORSAL COLUMN STIMULATOR? :NO DO YOU HAVE ANY RASHES OR OPEN SORES? :NO ARE YOU ALLERGIC TO IV DYE? :NO ARE YOU DIABETIC? :YES ANY NEW PROBLEMS WITH YOUR MEDICATIONS? :NO HAVE YOU RECEIVED A VACCINE IN THE PAST 30 DAYS? :NO DO YOU PLAN TO RECEIVE A VACCINE IN THE NEXT 21 DAYS? :NO DO YOU NEED ANY PRESCRIPTION? :NO DO YOU TAKE ANY IMMUNOSUPPRESSIVE MEDICATIONS? :NO IS THERE A CHANCE YOU COULD BE ? :NO ARE YOU BREAST FEEDING? :NO CURRENT MEDICATIONS TAKING EPIPEN 0.3 MG/0.3ML DEVICE USE DIRECTED INJECTION AT FIRST SIGN OF ANAPHYLAXIS AND GO TO ED. TAKING ALCOHOL PREP PAD 70 % PAD USE 1 PAD TOPICALLY WHEN TESTING BLOOD SUGAR UP TO BID (DX: 250.00) TAKING FLECAINIDE ACETATE 100 MG TABLET 1 TABLET ORALLY BID TAKING ELIQUIS 5 MG TABLET ORALLY BID TAKING ONE TOUCH ULTRA TEST STRIPS ULTRA MINI STRIPS USE 1 TEST STRIP . TO TEST BLOOD SUGAR UP TO BID (DX: 250.00) TAKING ATIVAN 2 MG TABLET 1TAB ORALLY QID PRN MDD=4 TAKING DILTIAZEM HCL 30 MG TABLET 2 TABLET BEFORE MEALS ORALLY BID TAKING ONE TOUCH DELICA 33 GAUGE LANCETS USE 1 LANCET SUBCUTANEOUSLY TO TEST BLOOD SUGAR UP TO BID. (ICD10 E11.65) TAKING BLOOD GLUCOSE TEST - STRIP DIRECTED IN VITRO DAILY TAKING IRBESARTAN 150 MG TABLET 1 TABLET ORALLY ONCE A DAY, NOTES: SIMON PT TAKING 1/2 TAB TAKING ROSUVASTATIN CALCIUM 5 MG TABLET 1 TABLET ORALLY ONCE A DAY TAKING BELBUCA 150 MCG FILM 1 FILM TO THE GUM BUCALLY EVERY 12 HRS TAKING METFORMIN HCL 500 MG TABLET 1 TABLET WITH A MEAL ORALLY BID, NOTES: CODE 07 TAKING DIAZEPAM 5 MG TABLET 1 TABLET NEEDED ORALLY X1 PRIOR TO MRI NOT-TAKING CARVEDILOL 12.5 MG TABLET 1 CAP ORALLY BID NOT-TAKING INDOCIN 50 MG CAPSULE 1 CAPSULE WITH FOOD ORALLY THREE TIMES A DAY FOR GOUT FLARE NEEDED MEDICATION LIST REVIEWED AND RECONCILED WITH THE PATIENT PAST MEDICAL HISTORY LBP HLP, ASCVD 27.4% 10/2019 ANXIETY H/O HEPATITIS C (PREVIOUSLY TREATED AND CURRENTLY UNDETECTABLE) H/O GOUT PAROXYSMAL A-FIB (FOLLOWED BY DR. MONTES) HYPERTENSION, GOAL 140/90 HYPERLIPIDEMIA ARTHRITIS DM, TYPE 2 A1C GOAL 7%, METFORMIN A-FIB KIDNEY STONES UTI SEPSIS OAB ALLERGIES ASPIRIN: UPSET STOMACH - SIDE EFFECTS BUSPAR: UNRESPONSIVENESS BEE STING: ALLERGIC REACTION - ALLERGY SURGICAL HISTORY NO PERSONAL OR FHX OF SEVERE REACTION TO ANESTHESIA TRIGGER FINGER BILAT (SOS, DR. OVALLES) 2000S COLONOSCOPY (REPEAT IN 10YRS) 07/26/2012 DISKECTOMY 08/2014 TLIF AT [facility] 06/25/15 LASER LITHO WITH LEFT STENT PLACEMENT 02/01/2018 CYSTO WITH LEFT STENT REMOVAL 02/08/2018 LASER LITHO WITH LEFT STENT PLACEMENT 06/03/2018 URETEROSCOPY W/ LASER LITHOTRIPSY 07/26/2018 NECK SURGERY/CYST REMOVAL 02/02/2019 RIGHT ELBOW GOUT REMOVED 04/2019 FAMILY HISTORY FATHER: 66 YRS, [place], DIAGNOSED WITH UNSPECIFIED HEART DISEASE MOTHER: 55 YRS, MULTIPLE MYELOMA, OTHER MALIGNANT NEOPLASM OF UNSPECIFIED SITE SIBLINGS: ALIVE, BROTHERS (2) - OA X 2 SISTERS (2) - OA X 2 2 BROTHER(S) , 2 SISTER(S) . NO CHILDREN. DENIES FAMILY HX OF PANCREATIC CANCER, MOTHER OF MELANOMASISTER HAS PULMONARY FIBROSIS. HOSPITALIZATION/MAJOR DIAGNOSTIC PROCEDURE CELLULITIS/PHLEBITIS ([facility] [place]) 1975 TRIGGER FINGER SURGERY EDI NALINI-BUSPAR REACTION 11/2014 [facility]-NECK AND BACK SURGERY 06/2015 UROSEPSIS, KIDNEY STONE 05/2018 REVIEW OF SYSTEMS CONSTITUTIONAL: ANY RECENT FEVER NO . CHILLS NO . WEIGHT CHANGE OF UNKNOWN REASONS NO . GASTROENTEROLOGY: NEW UNEXPLAINABLE CHANGES IN BOWEL CONTROL NO . CONSTIPATION NO . GENITOURINARY: ANY NEW CHANGE IN BLADDER CONTROL? NO . NEUROLOGY: NEW ONSET DIZZINESS OR NEUROLOGICAL CHANGES NOT MENTIONED NO . NEW NUMBNESS OR PAIN PATTERNS NOT MENTIONED AND PERTINENT TO TODAY'S VISIT NO . CARDIOLOGY: NEW CHEST PRESSURE NO . NEW CHEST PAIN NO . RESPIRATORY: UNEXPLAINABLE COUGH NO . NEW SHORTNESS OF BREATH NO . EXAMINATION GENERAL EXAMINATION: PSYCHAPPROPRIATE MOOD AND AFFECT , ORIENTED X 3. ASSESSMENTS SPONDYLOSIS OF LUMBAR REGION WITHOUT MYELOPATHY OR RADICULOPATHY - M47.816 (PRIMARY) TREATMENT SPONDYLOSIS OF LUMBAR REGION WITHOUT MYELOPATHY OR RADICULOPATHY CLINICAL NOTES: 64-YEAR-OLD MALE IN FOR CHRONIC PAIN FOLLOW-UP. MRI WAS REVIEWED WITH PATIENT TODAY. GIVEN PRESENTING SYMPTOMS RECOMMEND FOLLOW-UP IN CLINIC IN ONE MONTH TO DISCUSS RF PROCEDURE. PATIENT HAS EXPRESSED UNDERSTANDING OF AND WAS IN AGREEMENT WITH TREATMENT PLAN. GIVEN TIME TO ASK QUESTIONS AND EXPRESS CONCERNS. VISIT TO BE BILLED BASED ON TIME SPENT WITH PATIENT. TIME SPENT WITH PATIENT 11 MINUTES. OTHERS NOTES: VITALS NOT OBTAINED DUE TO PHONE VISIT, PRE SCREENING COMPLETED, 01/10/20, NA. DISPOSITION & COMMUNICATION FOLLOW UP 4 WEEKS (REASON: BACK PAIN ) ELECTRONICALLY SIGNED BY KOJO LEONARD ON 01/12/2020 AT 08:30 AM EDT DISCLAIMER : THIS IS A VISIT SUMMARY EXTRACTED FROM THE [employer] CHART. IT IS NOT A COPY OF THE [employer] PROGRESS NOTE. NOE
== END ==
LOC: M PAIN 10:45
PROVIDERS: ATTEND Family Medicine
DX: M47.816 Spondylosis without myelopathy or radiculopathy, lumbar region (principal)

== ENCOUNTER → 2020-02-08 | Outpatient (CLI) | payer MEDICARE | LOC: M PAIN 09:15 | PROVIDERS: ATTEND Family Medicine | DX: M47.816 Spondylosis without myelopathy or radiculopathy, lumbar region (principal) ==

== ENCOUNTER → 2020-02-27 | Outpatient (REF) | payer MEDICARE ==
[2020-04-14 23:07] LABS: BASO # 0.1 10^3/uL (0.0-0.2); BASO % 0.8 % (0.0-1.0); EOS # 0.3 10^3/uL (0.0-0.5); EOS % 2.1 % (0.0-3.0); HEMATOCRIT 50.1 % (42.0-52.0); HEMOGLOBIN 16.1 g/dl (13.5-17.5); LYMPH # 2.9 10^3/uL (1.5-5.0); LYMPH % 22.4 % (24.0-44.0); MEAN CORPUSCULAR HEMOGLOBIN 28.9 pg (27.0-33.0); MEAN CORPUSCULAR HGB CONC 32.1 g/dl (32.0-36.5); MEAN CORPUSCULAR VOLUME 89.9 fl (80.0-96.0); MONO # 0.9 10^3/uL (0.0-0.8); NEUTROPHILS # 8.7 10^3/uL (1.5-8.5); NEUTROPHILS % 67.2 % (36.0-66.0); PLATELET COUNT, AUTOMATED 284 10^3/uL (150-450); RED BLOOD COUNT 5.57 10^6/uL (4.30-6.10); WHITE BLOOD COUNT 12.9 10^3/uL (4.0-10.0)
[2020-04-23 21:43] LABS: HEMOGLOBIN A1c 6.6 %
[2020-04-24 00:44] LABS: ALBUMIN 4.1 GM/DL (3.2-5.2); ALT/SGPT 78 U/L (12-78); BILIRUBIN,TOTAL 0.6 MG/DL (0.2-1.0); BLOOD UREA NITROGEN 21 MG/DL (7-18); CALCIUM LEVEL 9.3 MG/DL (8.8-10.2); CARBON DIOXIDE LEVEL 25 MEQ/L (21-32); CHLORIDE LEVEL 104 MEQ/L (98-107); CHOLESTEROL LEVEL 263 MG/DL (<200); CHOLESTEROL RISK RATIO 4.534 (<5); CREATININE FOR GFR 1.07 MG/DL (0.70-1.30); GLOMERULAR FILTRATION RATE > 60.0 (>49); GLUCOSE, FASTING 132 MG/DL (70-100); HDL CHOLESTEROL 58 MG/DL (>40); LDL CHOLESTEROL 175 MG/DL (<100); NON-HDL-C 205 MG/DL; POTASSIUM SERUM 4.4 MEQ/L (3.5-5.1); SODIUM LEVEL 137 MEQ/L (136-145); TOTAL PROTEIN 7.7 GM/DL (6.4-8.2); TRIGLYCERIDES LEVEL 150 MG/DL (<150)
== END ==
LOC: M SFHCLERA 09:13
PROVIDERS: ATTEND Nurse Practitioner Family
DX: Z00.00 Encounter for general adult medical examination without abnormal findings (principal); R73.03 Prediabetes; Z13.220 Encounter for screening for lipoid disorders; E78.00 Pure hypercholesterolemia, unspecified

== ENCOUNTER → 2020-03-02 | Outpatient (REF) | payer MEDICARE ==
[2020-03-02 17:53] LABS: APPEARANCE, URINE CLEAR (CLEAR); BACTERIA, URINE AUTO NEGATIVE (NEGATIVE); BILIRUBIN, URINE AUTO NEGATIVE (NEGATIVE); BLOOD, URINE BLOOD NEGATIVE (NEGATIVE); COLOR, URINE STRAW (YELLOW); GLUCOSE, URINE (UA) AUTO NEGATIVE (NEGATIVE); KETONE, URINE AUTO NEGATIVE (NEGATIVE); LEUKOCYTE ESTERASE, URINE AUTO NEGATIVE (NEGATIVE); MUCUS, URINE SMALL (NEGATIVE); NITRITE, URINE AUTO NEGATIVE (NEGATIVE); PROTEIN, URINE AUTO NEGATIVE (NEGATIVE); RBC, URINE AUTO 0 /HPF (0-3); SPECIFIC GRAVITY URINE AUTO 1.003 (1.002-1.035); SQUAMOUS EPITHELIAL CELL UR AU 0 /HPF (0-6); UROBILINOGEN, URINE AUTO 0.2 mg/dL (0.0-2.0); WBC, URINE AUTO 0 /HPF (0-3)
== END ==
LOC: M LAB REF 12:00
PROVIDERS: ATTEND Nurse Practitioner Family
DX: D72.0 Genetic anomalies of leukocytes (principal); Z79.84 Long term (current) use of oral hypoglycemic drugs

== ENCOUNTER → 2020-03-05 | Outpatient (CLI) | payer MEDICARE ==
--- NOTE | 2020-04-05 10:51 | REP ---
RENAL ULTRASOUND CLINICAL: Left flank pain. Sepsis. History of gallstones. TECHNIQUE: Real-time watkins scale and color evaluation using curved array transducer. FINDINGS: Bilateral kidneys are normal in contour, size, echogenicity, and reniform shape without hydronephrosis, nephrolithiasis, cystic or renal mass lesion. Increased central sinus fat is noted with mild cortical thinning suggesting chronic age- related renal disease. No perinephric fluid collections are identified. Right kidney measures 12.2 x 6.1 x 5.5 cm. Left kidney measures 11.8 x 6.1 x 5.7 cm. The bladder is prolapsed. IMPRESSION: Age-related renal changes. No hydronephrosis, nephrolithiasis, or obvious renal abnormality by ultrasound. MTDD
== END ==
LOC: M RAD 10:22
PROVIDERS: ATTEND Nurse Practitioner Family
DX: Z86.19 Personal history of other infectious and parasitic diseases (principal); R10.9 Unspecified abdominal pain

== ENCOUNTER → 2020-05-04 | Outpatient (CLI) | payer MEDICARE | LOC: M LABSMTC 10:36 | PROVIDERS: ATTEND Internal Medicine Cardiovascular Disease | DX: Z01.812 Encounter for preprocedural laboratory examination (principal); Z20.828 Contact with and (suspected) exposure to other viral communicable diseases | CPT/HCPCS: C9803; U0003 ==

== ENCOUNTER → 2021-02-28 | Outpatient (CLI) | payer MEDICARE ==
--- NOTE | 2021-02-28 10:55 | REP ---
INDICATION: ABN FINDING OF LUNG COMPARISON: 02/24/2020 the only prior TECHNIQUE: Standard helical technique without intravenous contrast FINDINGS: The mediastinum and pulmonary jennifer are unchanged. There is no evidence of a mass or adenopathy. There are no pleural or pericardial effusions. The imaged upper abdomen shows significant improvement in the previously present fatty infiltration of the liver. Cholelithiasis is again noted. The osseous structures are unchanged. Evaluation of the lung hall shows no evidence of significant change in the chronic bilateral upper lung field changes. Mild cylindrical bronchiectasis is again noted status quo. No new abnormal nodules, masses, or opacities have developed. IMPRESSION: Stable CT findings in the chest. Findings in the abdomen as described above. <Electronically signed by Henrik Leroy > 02/28/21 0945
== END ==
LOC: M RAD 08:58
PROVIDERS: ATTEND Physician Assistant
DX: R91.8 Other nonspecific abnormal finding of lung field (principal); K76.0 Fatty (change of) liver, not elsewhere classified; K80.20 Calculus of gallbladder without cholecystitis without obstruction

== ENCOUNTER → 2021-09-26 | Outpatient (REF) | payer MEDICARE ==
[~2021-09-26] MED LIST changes: -KLOR10TA76 PO; +POTA-136 PO
[2021-09-27 10:44] LABS: CRYSTALS, BODY FLUID URIC ACID (NONE SEEN); SOURCE, BODY FLUID LFT ELBOW; SOURCE, BODY FLUID CRYSTALS LFT ELBOW
[2021-09-27 11:02] LABS: SYNOVIAL FLUID COLOR RED (COLORLESS)
[2021-09-27 11:13] LABS: SOURCE, BODY FLUID GLUCOSE LFT ELBOW
== END ==
LOC: M LAB REF 17:02
PROVIDERS: ATTEND Physician Assistant
DX: M25.422 Effusion, left elbow (principal)

== ENCOUNTER 2022-04-11 22:23 | Inpatient (IN) | payer MEDICARE ==
[~2022-04-11] VITALS: Ht 190.5 cm; Wt 119.2 kg
[~2022-04-11 22:23] MED LIST changes: +ALBU6.7H6 INH; -PROV108A INH
[2022-04-11 23:15] VITALS: BP 206/146
[2022-04-11 23:30] VITALS: BP 214/117
[2022-04-12] VITALS (40 sets, daily range): BP systolic 150–195; BP diastolic 88–124
[2022-04-12] MEDS ORDERED: NS 500 ML IV ONE (00:35)
[2022-04-12] MEDS: HYDROMORPHONE HCL 0.5 MG/ 0.5 ML SYRINGE (J1170 PER 1) IV PRN ×6 (01:04→22:32)
[2022-04-12] MEDS ORDERED: METF500T13 PO (01:36)
[2022-04-12] MEDS ORDERED: ZOLP10TA2 PO (01:36)
[2022-04-12] MEDS ORDERED: ALLO100T PO (01:36)
[2022-04-12] MEDS ORDERED: TREL1AER PO (01:36)
[2022-04-12] MEDS ORDERED: HOME MED LIST COMPLETE! XX SCH (01:40)
[2022-04-12] MEDS ORDERED: GLUCOSE 4GM CHEW TABLET PO PRN (01:50)
[2022-04-12] MEDS ORDERED: GLUCAGON INJ 1MG VIAL SC PRN (01:50)
[2022-04-12] MEDS ORDERED: DEXTROSE 50% 50 ML SYRINGE IV PRN (01:50)
[2022-04-12] MEDS: METOPROLOL 5 MG/5 ML VIAL IV SCH ×3 (01:52→02:06)
[2022-04-12] MEDS ORDERED: ALBUTEROL 90 MCG/ACT 8GM HFA INHALER INH PRN (01:55)
[2022-04-12] MEDS ORDERED: ALBU8.5H INH (01:58)
[2022-04-12 02:01] LABS: ALBUMIN 3.8 GM/DL (3.2-5.2); ALT/SGPT 112 U/L (12-78); BILIRUBIN,TOTAL 1.2 MG/DL (0.2-1.0); BLOOD UREA NITROGEN 19 MG/DL (7-18); CALCIUM LEVEL 8.8 MG/DL (8.8-10.2); CARBON DIOXIDE LEVEL 26 MEQ/L (21-32); CHLORIDE LEVEL 103 MEQ/L (98-107); CREATININE FOR GFR 1.13 MG/DL (0.70-1.30); GLOMERULAR FILTRATION RATE > 60.0 (>49); GLUCOSE, FASTING 296 MG/DL (70-100); POTASSIUM SERUM 4.6 MEQ/L (3.5-5.1); SODIUM LEVEL 137 MEQ/L (136-145); TOTAL PROTEIN 7.5 GM/DL (6.4-8.2); URIC ACID 5.4 MG/DL (3.5-7.2)
[2022-04-12] MEDS: NS 1,000 ML IV SCH ×2 (02:09→07:56)
[2022-04-12] MEDS ORDERED: METOPROLOL TART 25 MG TABLET PO SCH (02:25)
[2022-04-12] MEDS: FLECAINIDE 50MG TABLET PO SCH ×3 (02:36→20:04)
[2022-04-12] MEDS ORDERED: LORazepam 1 MG TAB PO PRN (04:20)
[2022-04-12 05:27] LABS: BASO % 0.2 % (0.0-1.0); EOS % 0.1 % (0.0-3.0); HEMATOCRIT 54.6 % (42.0-52.0); HEMOGLOBIN 17.7 g/dl (13.5-17.5); LYMPH # 1.5 10^3/uL (1.5-5.0); LYMPH % 10.9 % (24.0-44.0); MEAN CORPUSCULAR HEMOGLOBIN 28.5 pg (27.0-33.0); MEAN CORPUSCULAR HGB CONC 32.4 g/dl (32.0-36.5); MEAN CORPUSCULAR VOLUME 87.9 fl (80.0-96.0); MONO # 0.6 10^3/uL (0.0-0.8); MONO % 4.1 % (2.0-8.0); NEUTROPHILS # 11.8 10^3/uL (1.5-8.5); NEUTROPHILS % 83.6 % (36.0-66.0); PLATELET COUNT, AUTOMATED 317 10^3/uL (150-450); RED BLOOD COUNT 6.21 10^6/uL (4.30-6.10); WHITE BLOOD COUNT 14.2 10^3/uL (4.0-10.0)
[2022-04-12 05:55] LABS: ALBUMIN 3.7 GM/DL (3.2-5.2); ALT/SGPT 108 U/L (12-78); BLOOD UREA NITROGEN 20 MG/DL (7-18); CALCIUM LEVEL 8.7 MG/DL (8.8-10.2); CARBON DIOXIDE LEVEL 24 MEQ/L (21-32); CHLORIDE LEVEL 104 MEQ/L (98-107); CREATININE FOR GFR 1.18 MG/DL (0.70-1.30); GLOMERULAR FILTRATION RATE > 60.0 (>49); GLUCOSE, FASTING 289 MG/DL (70-100); MAGNESIUM LEVEL 1.8 MG/DL (1.8-2.4); POTASSIUM SERUM 4.7 MEQ/L (3.5-5.1); SODIUM LEVEL 138 MEQ/L (136-145); TOTAL PROTEIN 7.5 GM/DL (6.4-8.2)
[2022-04-12] MEDS: CEFEPIME HCL 1 GM in D5W MINI-BAG PLUS 50 ML IV SCH ×2 (05:59→18:22)
[2022-04-12] MEDS ORDERED: VANCOMYCIN HCL 1,000 MG, VIAL MATE ADAPTER 1 EACH in NS 250 ML IV SCH (06:00)
[2022-04-12] MEDS: diltiaZEM 125 MG in NS 100 ML IV SCH ×2 (07:54→16:01)
[2022-04-12] MEDS: INSULIN LISPRO (NovoLOG) PER UNIT SC SCH ×3 (07:55→18:11)
[2022-04-12] MEDS: VANCOMYCIN HCL 750 MG, VIAL MATE ADAPTER 1 EACH in D5W 250 ML IV SCH ×2 (07:56→20:04)
[2022-04-12] MEDS: TIOTROPIUM INHALER/CAPSULE (SPIRIVA) INH SCH (08:00)
[2022-04-12] MEDS ORDERED: FLUTICASONE HFA 110 MCG 12 GM INHALER (FLOVENT) INH SCH (08:00)
[2022-04-12] MEDS: SYMBICORT 80/4.5MCG INHALER 6GM INH SCH ×2 (08:00→19:53)
[2022-04-12] MEDS ORDERED: APIXABAN 5 MG TAB (ELIQUIS) PO SCH (09:00)
[2022-04-12] MEDS: SENNA 8.6 MG TAB (SENOKOT) PO SCH ×2 (09:00→14:21)
[2022-04-12] MEDS ORDERED: CARVedilol 3.125 MG TAB PO SCH (09:00)
[2022-04-12] MEDS: METOPROLOL TART 50 MG TAB PO SCH ×3 (09:45→20:03)
[2022-04-12] MEDS: VANCOMYCIN HCL 500 MG in D5W MINI-BAG PLUS 100 ML IV SCH ×2 (09:46→21:29)
[2022-04-12] MEDS ORDERED: LORazepam 2 MG/ML VIAL IV PRN (13:30)
[2022-04-12] MEDS ORDERED: HYDROMORPHONE HCL 0.5 MG/ 0.5 ML SYRINGE (J1170 PER 1) IV PRN (14:00)
[2022-04-12] MEDS: SIMETHICONE 80MG CHEW TAB PO PRN (15:50)
[2022-04-12] MEDS: LORazepam 2 MG/ML VIAL IV PRN ×2 (18:06→21:28)
[2022-04-12] MEDS: TAMSULOSIN 0.4 MG CAP PO SCH (18:10)
[2022-04-12] MEDS: APIXABAN 5 MG TAB (ELIQUIS) PO SCH (20:10)
[2022-04-12] MEDS ORDERED: DIGOXIN INJ 0.5 MG/2 ML AMP (J1160) IV ONE (22:45)
[2022-04-12] MEDS: PANTOPRAZOLE 20 MG TAB PO SCH (23:11)
[2022-04-13] VITALS (42 sets, daily range): BP systolic 90–193; BP diastolic 55–117
[2022-04-13] MEDS ORDERED: cloNIDine 0.1MG TABLET PO SCH (00:10)
[2022-04-13] MEDS: diltiaZEM 125 MG in NS 100 ML IV SCH ×2 (00:53→06:24)
[2022-04-13] MEDS ORDERED: LISINOPRIL *2.5 MG* TAB PO ONE (02:00)
[2022-04-13] MEDS: LORazepam 2 MG/ML VIAL IV PRN ×4 (02:57→18:21)
[2022-04-13] MEDS: CEFEPIME HCL 1 GM in D5W MINI-BAG PLUS 50 ML IV SCH ×2 (05:12→18:17)
[2022-04-13] MEDS: HYDROMORPHONE HCL 0.5 MG/ 0.5 ML SYRINGE (J1170 PER 1) IV PRN ×2 (06:55→16:57)
[2022-04-13] MEDS: TIOTROPIUM INHALER/CAPSULE (SPIRIVA) INH SCH (07:06)
[2022-04-13] MEDS: SYMBICORT 80/4.5MCG INHALER 6GM INH SCH ×2 (07:06→20:07)
[2022-04-13 07:10] LABS: BASO % 0.1 % (0.0-1.0); EOS % 0.1 % (0.0-3.0); HEMATOCRIT 53.2 % (42.0-52.0); HEMOGLOBIN 17.2 g/dl (13.5-17.5); LYMPH # 2.4 10^3/uL (1.5-5.0); LYMPH % 11.4 % (24.0-44.0); MEAN CORPUSCULAR HEMOGLOBIN 28.1 pg (27.0-33.0); MEAN CORPUSCULAR HGB CONC 32.3 g/dl (32.0-36.5); MEAN CORPUSCULAR VOLUME 86.9 fl (80.0-96.0); MONO % 11.2 % (2.0-8.0); NEUTROPHILS # 16.3 10^3/uL (1.5-8.5); NEUTROPHILS % 76.5 % (36.0-66.0); PLATELET COUNT, AUTOMATED 245 10^3/uL (150-450); RED BLOOD COUNT 6.12 10^6/uL (4.30-6.10); WHITE BLOOD COUNT 21.3 10^3/uL (4.0-10.0)
[2022-04-13 07:40] LABS: MONO # 2.4 10^3/uL (0.0-0.8)
[2022-04-13 07:56] LABS: ALBUMIN 3.4 GM/DL (3.2-5.2); ALT/SGPT 76 U/L (12-78); BILIRUBIN,TOTAL 1.1 MG/DL (0.2-1.0); BLOOD UREA NITROGEN 23 MG/DL (7-18); CALCIUM LEVEL 8.7 MG/DL (8.8-10.2); CARBON DIOXIDE LEVEL 26 MEQ/L (21-32); CHLORIDE LEVEL 99 MEQ/L (98-107); GLOMERULAR FILTRATION RATE > 60.0 (>49); GLUCOSE, FASTING 262 MG/DL (70-100); SODIUM LEVEL 132 MEQ/L (136-145); VANCOMYCIN LEVEL TROUGH 11.4 UG/ML (10.0-20.0)
[2022-04-13] MEDS ORDERED: diltiaZEM 125 MG in NS 100 ML IV SCH (07:59)
[2022-04-13] MEDS: TAMSULOSIN 0.4 MG CAP PO SCH (08:25)
[2022-04-13] MEDS: SENNA 8.6 MG TAB (SENOKOT) PO SCH (08:25)
[2022-04-13] MEDS: FLECAINIDE 50MG TABLET PO SCH ×2 (08:25→20:15)
[2022-04-13] MEDS: PANTOPRAZOLE 20 MG TAB PO SCH (08:26)
[2022-04-13] MEDS: METOPROLOL TART 50 MG TAB PO SCH ×2 (08:26→20:15)
[2022-04-13] MEDS: INSULIN LISPRO (NovoLOG) PER UNIT SC SCH ×3 (08:27→18:15)
[2022-04-13] MEDS: VANCOMYCIN HCL 750 MG, VIAL MATE ADAPTER 1 EACH in D5W 250 ML IV SCH (08:28)
[2022-04-13] MEDS: APIXABAN 5 MG TAB (ELIQUIS) PO SCH ×2 (08:28→20:15)
[2022-04-13] MEDS ORDERED: LISINOPRIL *2.5 MG* TAB PO SCH (09:00)
[2022-04-13] MEDS: VANCOMYCIN HCL 500 MG in D5W MINI-BAG PLUS 100 ML IV SCH (09:49)
[2022-04-13] MEDS ORDERED: NS 1,000 ML IV ONE ×2 (12:35→16:00)
[2022-04-13] MEDS: CALCIUM CARBONATE 500 MG CHEW U/D PO PRN ×2 (13:09→20:19)
[2022-04-13] MEDS ORDERED: ACETAMINOPHEN TAB 650MG DOSE (2X325MG) PO PRN (14:45)
[2022-04-13] MEDS: methocarbamoL 750 MG TAB PO PRN (15:11)
[2022-04-13] MEDS ORDERED: LR 1,000 ML IV ONE (19:00)
[2022-04-13 21:11] LABS: BLOOD UREA NITROGEN 31 MG/DL (7-18); CALCIUM LEVEL 8.4 MG/DL (8.8-10.2); CARBON DIOXIDE LEVEL 24 MEQ/L (21-32); CHLORIDE LEVEL 105 MEQ/L (98-107); CREATININE FOR GFR 1.03 MG/DL (0.70-1.30); GLOMERULAR FILTRATION RATE > 60.0 (>49); GLUCOSE, FASTING 226 MG/DL (70-100); POTASSIUM SERUM 3.8 MEQ/L (3.5-5.1); SODIUM LEVEL 134 MEQ/L (136-145)
[2022-04-13] MEDS: LORazepam 2 MG TAB PO PRN (22:36)
[2022-04-14] VITALS (13 sets, daily range): BP systolic 102–168; BP diastolic 59–94
[2022-04-14] MEDS: HYDROMORPHONE HCL 0.5 MG/ 0.5 ML SYRINGE (J1170 PER 1) IV PRN ×3 (01:11→21:05)
[2022-04-14] MEDS: CEFEPIME HCL 1 GM in D5W MINI-BAG PLUS 50 ML IV SCH ×2 (05:34→17:30)
[2022-04-14] MEDS: MULTIVITAMINS/MINERALS THERAP 1 TAB PO SCH (08:23)
[2022-04-14] MEDS: APIXABAN 5 MG TAB (ELIQUIS) PO SCH ×2 (08:23→20:10)
[2022-04-14] MEDS: SENNA 8.6 MG TAB (SENOKOT) PO SCH (08:23)
[2022-04-14] MEDS: THIAMINE 100 MG TAB PO SCH ×2 (08:23→20:10)
[2022-04-14] MEDS: PANTOPRAZOLE 20 MG TAB PO SCH (08:23)
[2022-04-14] MEDS: METOPROLOL TART 50 MG TAB PO SCH ×2 (08:23→20:10)
[2022-04-14] MEDS: FLECAINIDE 50MG TABLET PO SCH ×2 (08:23→20:10)
[2022-04-14] MEDS: FOLIC ACID 1MG TAB PO SCH (08:24)
[2022-04-14] MEDS: INSULIN LISPRO (NovoLOG) PER UNIT SC SCH ×3 (08:25→17:30)
[2022-04-14] MEDS: SYMBICORT 80/4.5MCG INHALER 6GM INH SCH ×2 (08:50→20:05)
[2022-04-14] MEDS: TIOTROPIUM INHALER/CAPSULE (SPIRIVA) INH SCH (08:50)
[2022-04-14] MEDS ORDERED: amLODIPine 5 MG TAB PO SCH (09:00)
[2022-04-14 09:17] LABS: HEMATOCRIT 47.6 % (42.0-52.0); HEMOGLOBIN 15.9 g/dl (13.5-17.5); MEAN CORPUSCULAR HEMOGLOBIN 28.6 pg (27.0-33.0); MEAN CORPUSCULAR HGB CONC 33.4 g/dl (32.0-36.5); MEAN CORPUSCULAR VOLUME 85.8 fl (80.0-96.0); PLATELET COUNT, AUTOMATED 239 10^3/uL (150-450); RED BLOOD COUNT 5.55 10^6/uL (4.30-6.10); WHITE BLOOD COUNT 18.5 10^3/uL (4.0-10.0)
[2022-04-14 09:49] LABS: ALBUMIN 3.2 GM/DL (3.2-5.2); ALT/SGPT 61 U/L (12-78); BILIRUBIN,TOTAL 1.5 MG/DL (0.2-1.0); BLOOD UREA NITROGEN 21 MG/DL (7-18); CALCIUM LEVEL 8.2 MG/DL (8.8-10.2); CARBON DIOXIDE LEVEL 22 MEQ/L (21-32); CHLORIDE LEVEL 102 MEQ/L (98-107); CREATININE FOR GFR 0.78 MG/DL (0.70-1.30); GLOMERULAR FILTRATION RATE > 60.0 (>49); GLUCOSE, FASTING 221 MG/DL (70-100); POTASSIUM SERUM 3.9 MEQ/L (3.5-5.1); SODIUM LEVEL 134 MEQ/L (136-145); TOTAL PROTEIN 6.4 GM/DL (6.4-8.2)
[2022-04-14 11:03] LABS: HIV 1&2 SCREEN CENTAUR NEGATIVE (NEGATIVE)
[2022-04-14 11:04] LABS: HEPATITIS C VIRUS ABY INDEX > 11.0 INDEX (<0.8)
[2022-04-14] MEDS ORDERED: MIRALAX *UNIT DOSE* 17GM PACKET PO PRN (12:05)
[2022-04-14] MEDS ORDERED: BISACODYL 5 MG TAB PO PRN (12:05)
[2022-04-14] MEDS ORDERED: SENOKOT S TAB PO PRN (12:05)
[2022-04-14] MEDS ORDERED: FLEET ENEMA PR PRN (12:05)
[2022-04-14] MEDS: MOM 30ML SUSPENSION UDC PO PRN (12:29)
[2022-04-14] MEDS: LORazepam 2 MG TAB PO PRN ×3 (12:35→23:22)
[2022-04-14] MEDS ORDERED: LORazepam 2 MG TAB PO ONE (12:40)
[2022-04-14] MEDS ORDERED: VANCOMYCIN HCL 1,000 MG, VIAL MATE ADAPTER 1 EACH in NS 250 ML IV SCH (16:00)
[2022-04-14 16:50] LABS: C REACTIVE PROTEIN QUANTITATIV 4.53 MG/DL (0.00-0.30); VANCOMYCIN RANDOM 4.3 UG/ML
[2022-04-14] MEDS ORDERED: VANCOMYCIN HCL 1,000 MG, VIAL MATE ADAPTER 1 EACH in D5W 250 ML IV ONE (18:00)
[2022-04-14] MEDS ORDERED: LORazepam 2 MG/ML VIAL IV ONE (18:20)
[2022-04-14] MEDS ORDERED: MAG SULF 1GM/100ML (MAG RUN) 1 GM in IV 1 EA IV ONE (18:25)
[2022-04-14 18:51] LABS: MAGNESIUM LEVEL 2.1 MG/DL (1.8-2.4)
[2022-04-14] MEDS ORDERED: VANCOMYCIN HCL 750 MG, VIAL MATE ADAPTER 1 EACH in D5W 250 ML IV ONE (19:00)
[2022-04-14] MEDS ORDERED: METOPROLOL 5 MG/5 ML VIAL IV SCH (22:00)
[2022-04-15] VITALS (9 sets, daily range): BP systolic 124–166; BP diastolic 65–82
[2022-04-15] MEDS: VANCOMYCIN HCL 1,000 MG, VIAL MATE ADAPTER 1 EACH in D5W 250 ML IV SCH ×2 (01:45→10:18)
[2022-04-15] MEDS: LORazepam 2 MG TAB PO PRN (03:30)
[2022-04-15] MEDS: HYDROMORPHONE HCL 0.5 MG/ 0.5 ML SYRINGE (J1170 PER 1) IV PRN (04:35)
[2022-04-15 05:04] LABS: BASO % 0.2 % (0.0-1.0); EOS # 0.2 10^3/uL (0.0-0.5); HEMATOCRIT 46.8 % (42.0-52.0); HEMOGLOBIN 15.6 g/dl (13.5-17.5); LYMPH % 12.2 % (24.0-44.0); MEAN CORPUSCULAR HEMOGLOBIN 28.6 pg (27.0-33.0); MEAN CORPUSCULAR HGB CONC 33.3 g/dl (32.0-36.5); MEAN CORPUSCULAR VOLUME 85.7 fl (80.0-96.0); MONO % 10.4 % (2.0-8.0); NEUTROPHILS # 12.4 10^3/uL (1.5-8.5); NEUTROPHILS % 75.3 % (36.0-66.0); PLATELET COUNT, AUTOMATED 190 10^3/uL (150-450); RED BLOOD COUNT 5.46 10^6/uL (4.30-6.10); WHITE BLOOD COUNT 16.4 10^3/uL (4.0-10.0)
[2022-04-15 05:15] LABS: MONO # 1.7 10^3/uL (0.0-0.8)
[2022-04-15 05:33] LABS: BLOOD UREA NITROGEN 19 MG/DL (7-18); CALCIUM LEVEL 7.6 MG/DL (8.8-10.2); CARBON DIOXIDE LEVEL 24 MEQ/L (21-32); CHLORIDE LEVEL 103 MEQ/L (98-107); GLOMERULAR FILTRATION RATE > 60.0 (>49); GLUCOSE, FASTING 205 MG/DL (70-100); POTASSIUM SERUM 3.8 MEQ/L (3.5-5.1); SODIUM LEVEL 133 MEQ/L (136-145)
[2022-04-15] MEDS: CEFEPIME HCL 1 GM in D5W MINI-BAG PLUS 50 ML IV SCH ×2 (06:05→17:29)
[2022-04-15] MEDS: INSULIN LISPRO (NovoLOG) PER UNIT SC SCH ×3 (07:30→17:30)
[2022-04-15] MEDS: FOLIC ACID 1MG TAB PO SCH (08:27)
[2022-04-15] MEDS: APIXABAN 5 MG TAB (ELIQUIS) PO SCH ×2 (08:27→21:24)
[2022-04-15] MEDS: THIAMINE 100 MG TAB PO SCH ×2 (08:27→21:24)
[2022-04-15] MEDS: SENNA 8.6 MG TAB (SENOKOT) PO SCH (08:27)
[2022-04-15] MEDS: MULTIVITAMINS/MINERALS THERAP 1 TAB PO SCH (08:27)
[2022-04-15] MEDS: PANTOPRAZOLE 20 MG TAB PO SCH (08:27)
[2022-04-15] MEDS: METOPROLOL TART 50 MG TAB PO SCH ×2 (08:27→21:24)
[2022-04-15] MEDS: FLECAINIDE 50MG TABLET PO SCH ×2 (08:27→21:35)
[2022-04-15] MEDS: MOM 30ML SUSPENSION UDC PO PRN (08:29)
[2022-04-15] MEDS ORDERED: [UNRECOGNIZED DRUG - REMARK] XX SCH (09:00)
[2022-04-15] MEDS: SYMBICORT 80/4.5MCG INHALER 6GM INH SCH ×2 (09:20→20:00)
[2022-04-15] MEDS: TIOTROPIUM INHALER/CAPSULE (SPIRIVA) INH SCH (09:20)
[2022-04-15] MEDS ORDERED: KETOROLAC 30 MG/ML 1ML VIAL IV ONE (10:15)
[2022-04-15] MEDS: PERCOCET 5MG/325MG TAB PO PRN ×3 (10:19→21:24)
[2022-04-15] MEDS ORDERED: FLUBLOK(EGG FREE)(QUAD)INFLUENZA VACC 0.5ML SYRINGE 18YRS & OLDER IM.IMMUN ONE (13:00)
[2022-04-15] MEDS ORDERED: ISOVUE-370 76% 100ML VIAL As Ordered ONE (16:02)
[2022-04-15] MEDS: methocarbamoL 750 MG TAB PO PRN (21:25)
[2022-04-16] VITALS (9 sets, daily range): BP systolic 108–178; BP diastolic 70–102
[2022-04-16 04:47] LABS: BASO # 0.1 10^3/uL (0.0-0.2); BASO % 0.4 % (0.0-1.0); EOS # 0.5 10^3/uL (0.0-0.5); EOS % 3.9 % (0.0-3.0); HEMATOCRIT 49.9 % (42.0-52.0); LYMPH # 2.3 10^3/uL (1.5-5.0); LYMPH % 16.4 % (24.0-44.0); MEAN CORPUSCULAR HEMOGLOBIN 28.2 pg (27.0-33.0); MEAN CORPUSCULAR HGB CONC 32.1 g/dl (32.0-36.5); MONO # 1.5 10^3/uL (0.0-0.8); MONO % 10.6 % (2.0-8.0); NEUTROPHILS # 9.3 10^3/uL (1.5-8.5); NEUTROPHILS % 67.8 % (36.0-66.0); PLATELET COUNT, AUTOMATED 192 10^3/uL (150-450); RED BLOOD COUNT 5.67 10^6/uL (4.30-6.10); WHITE BLOOD COUNT 13.8 10^3/uL (4.0-10.0)
[2022-04-16] MEDS: PERCOCET 5MG/325MG TAB PO PRN ×4 (05:00→22:32)
[2022-04-16] MEDS: CEFEPIME HCL 1 GM in D5W MINI-BAG PLUS 50 ML IV SCH ×2 (05:07→18:07)
[2022-04-16 05:12] LABS: BLOOD UREA NITROGEN 18 MG/DL (7-18); CALCIUM LEVEL 8.3 MG/DL (8.8-10.2); CARBON DIOXIDE LEVEL 26 MEQ/L (21-32); CHLORIDE LEVEL 103 MEQ/L (98-107); CREATININE FOR GFR 0.82 MG/DL (0.70-1.30); GLOMERULAR FILTRATION RATE > 60.0 (>49); GLUCOSE, FASTING 166 MG/DL (70-100); SODIUM LEVEL 134 MEQ/L (136-145)
[2022-04-16] MEDS: TIOTROPIUM INHALER/CAPSULE (SPIRIVA) INH SCH (08:15)
[2022-04-16] MEDS: SYMBICORT 80/4.5MCG INHALER 6GM INH SCH ×2 (08:16→19:47)
[2022-04-16] MEDS: SENNA 8.6 MG TAB (SENOKOT) PO SCH (08:29)
[2022-04-16] MEDS: FOLIC ACID 1MG TAB PO SCH (08:29)
[2022-04-16] MEDS: APIXABAN 5 MG TAB (ELIQUIS) PO SCH ×2 (08:29→22:32)
[2022-04-16] MEDS: INSULIN LISPRO (NovoLOG) PER UNIT SC SCH ×3 (08:29→17:30)
[2022-04-16] MEDS: MULTIVITAMINS/MINERALS THERAP 1 TAB PO SCH (08:29)
[2022-04-16] MEDS: FLECAINIDE 50MG TABLET PO SCH ×2 (08:30→22:30)
[2022-04-16] MEDS: METOPROLOL TART 50 MG TAB PO SCH ×2 (08:30→22:31)
[2022-04-16] MEDS: THIAMINE 100 MG TAB PO SCH ×2 (08:31→22:31)
[2022-04-16] MEDS ORDERED: PANTOPRAZOLE 40MG TAB (PROTONIX) PO SCH (09:00)
[2022-04-16] MEDS: BISACODYL 10 MG SUPP PR SCH ×2 (09:00→21:00)
[2022-04-16] MEDS ORDERED: KETOROLAC 30 MG/ML 1ML VIAL IV ONE (09:10)
[2022-04-16] MEDS ORDERED: FUROSEMIDE 100MG/10ML VIAL (J1940) IV ONE (09:50)
[2022-04-16] MEDS: MIRALAX *UNIT DOSE* 17GM PACKET PO SCH (10:13)
[2022-04-16] MEDS: DOCUSATE SODIUM 100MG CAPSULE PO SCH ×2 (10:13→22:31)
[2022-04-16] MEDS ORDERED: COLCHICINE 0.6 MG TABLET PO ONE (11:00)
[2022-04-16] MEDS ORDERED: FUROSEMIDE 40MG/4ML VIAL (J1940) IV ONE (13:00)
[2022-04-16] MEDS ORDERED: PILL CUTTER 1 EACH XX ONE (22:21)
[2022-04-17] VITALS (7 sets, daily range): BP systolic 126–175; BP diastolic 69–94
[2022-04-17] MEDS: PERCOCET 5MG/325MG TAB PO PRN ×3 (03:40→16:36)
[2022-04-17] MEDS: CEFEPIME HCL 1 GM in D5W MINI-BAG PLUS 50 ML IV SCH ×2 (06:08→17:41)
[2022-04-17 06:09] LABS: BASO # 0.1 10^3/uL (0.0-0.2); BASO % 0.6 % (0.0-1.0); EOS # 0.9 10^3/uL (0.0-0.5); EOS % 6.7 % (0.0-3.0); HEMATOCRIT 42.8 % (42.0-52.0); LYMPH # 1.9 10^3/uL (1.5-5.0); LYMPH % 15.2 % (24.0-44.0); MEAN CORPUSCULAR HEMOGLOBIN 28.6 pg (27.0-33.0); MEAN CORPUSCULAR HGB CONC 32.7 g/dl (32.0-36.5); MEAN CORPUSCULAR VOLUME 87.3 fl (80.0-96.0); MONO # 1.5 10^3/uL (0.0-0.8); MONO % 11.9 % (2.0-8.0); NEUTROPHILS # 8.2 10^3/uL (1.5-8.5); NEUTROPHILS % 64.6 % (36.0-66.0); PLATELET COUNT, AUTOMATED 229 10^3/uL (150-450); WHITE BLOOD COUNT 12.6 10^3/uL (4.0-10.0)
[2022-04-17] MEDS: SYMBICORT 80/4.5MCG INHALER 6GM INH SCH ×2 (06:30→19:35)
[2022-04-17] MEDS: TIOTROPIUM INHALER/CAPSULE (SPIRIVA) INH SCH (06:30)
[2022-04-17 06:45] LABS: BLOOD UREA NITROGEN 18 MG/DL (7-18); CALCIUM LEVEL 8.2 MG/DL (8.8-10.2); CARBON DIOXIDE LEVEL 27 MEQ/L (21-32); CHLORIDE LEVEL 102 MEQ/L (98-107); GLOMERULAR FILTRATION RATE > 60.0 (>49); GLUCOSE, FASTING 162 MG/DL (70-100); POTASSIUM SERUM 4.2 MEQ/L (3.5-5.1); SODIUM LEVEL 134 MEQ/L (136-145)
[2022-04-17] MEDS: BISACODYL 10 MG SUPP PR SCH ×3 (09:00→20:45)
[2022-04-17] MEDS ORDERED: COLCHICINE 0.6 MG TABLET PO SCH (09:00)
[2022-04-17] MEDS ORDERED: FUROSEMIDE 100MG/10ML VIAL (J1940) IV ONE (09:55)
[2022-04-17] MEDS: KETOROLAC 30 MG/ML 1ML VIAL IV SCH ×3 (10:01→20:45)
[2022-04-17] MEDS: INSULIN LISPRO (NovoLOG) PER UNIT SC SCH ×3 (10:01→17:07)
[2022-04-17] MEDS: DOCUSATE SODIUM 100MG CAPSULE PO SCH ×2 (10:02→20:44)
[2022-04-17] MEDS: SENNA 8.6 MG TAB (SENOKOT) PO SCH (10:02)
[2022-04-17] MEDS: MULTIVITAMINS/MINERALS THERAP 1 TAB PO SCH (10:02)
[2022-04-17] MEDS: METOPROLOL TART 50 MG TAB PO SCH ×2 (10:03→20:47)
[2022-04-17] MEDS: APIXABAN 5 MG TAB (ELIQUIS) PO SCH ×2 (10:03→20:44)
[2022-04-17] MEDS: FLECAINIDE 50MG TABLET PO SCH ×2 (10:03→20:44)
[2022-04-17] MEDS: PANTOPRAZOLE 40MG TAB (PROTONIX) PO SCH ×2 (10:03→20:44)
[2022-04-17] MEDS: FOLIC ACID 1MG TAB PO SCH (10:04)
[2022-04-17] MEDS: predniSONE 20 MG TAB PO SCH (10:11)
[2022-04-17] MEDS: MIRALAX *UNIT DOSE* 17GM PACKET PO SCH (10:11)
[2022-04-17 12:56] LABS: ALBUMIN 2.9 GM/DL (3.2-5.2); ALT/SGPT 38 U/L (12-78); BILIRUBIN,DIRECT 0.4 MG/DL (0.0-0.2); BILIRUBIN,TOTAL 0.9 MG/DL (0.2-1.0); TOTAL PROTEIN 6.1 GM/DL (6.4-8.2)
[2022-04-17 15:15] LABS: C REACTIVE PROTEIN QUANTITATIV 7.07 MG/DL (0.00-0.30)
[2022-04-17] MEDS ORDERED: INSULIN LISPRO (NovoLOG) PER UNIT SC ONE (18:00)
[2022-04-18] VITALS (8 sets, daily range): BP systolic 104–182; BP diastolic 72–110
[2022-04-18] MEDS: PERCOCET 5MG/325MG TAB PO PRN ×3 (00:21→17:47)
[2022-04-18] MEDS: KETOROLAC 30 MG/ML 1ML VIAL IV SCH ×4 (03:53→20:35)
[2022-04-18] MEDS ORDERED: METOPROLOL 5 MG/5 ML VIAL IV STA ×2 (04:22→05:49)
[2022-04-18] MEDS ORDERED: MORPHINE 2 MG/ML 1ML VIAL IV ONE (05:00)
[2022-04-18] MEDS: CEFEPIME HCL 1 GM in D5W MINI-BAG PLUS 50 ML IV SCH (05:09)
[2022-04-18 05:57] LABS: BASO # 0.1 10^3/uL (0.0-0.2); BASO % 0.4 % (0.0-1.0); EOS # 0.5 10^3/uL (0.0-0.5); EOS % 3.1 % (0.0-3.0); HEMATOCRIT 46.7 % (42.0-52.0); HEMOGLOBIN 15.1 g/dl (13.5-17.5); LYMPH # 2.5 10^3/uL (1.5-5.0); LYMPH % 16.5 % (24.0-44.0); MEAN CORPUSCULAR HEMOGLOBIN 28.1 pg (27.0-33.0); MEAN CORPUSCULAR HGB CONC 32.3 g/dl (32.0-36.5); MEAN CORPUSCULAR VOLUME 86.8 fl (80.0-96.0); MONO # 1.4 10^3/uL (0.0-0.8); MONO % 9.3 % (2.0-8.0); NEUTROPHILS # 10.8 10^3/uL (1.5-8.5); PLATELET COUNT, AUTOMATED 310 10^3/uL (150-450); RED BLOOD COUNT 5.38 10^6/uL (4.30-6.10); WHITE BLOOD COUNT 15.4 10^3/uL (4.0-10.0)
[2022-04-18] MEDS: SIMETHICONE 80MG CHEW TAB PO PRN (06:08)
[2022-04-18 06:31] LABS: BLOOD UREA NITROGEN 19 MG/DL (7-18); CALCIUM LEVEL 8.5 MG/DL (8.8-10.2); CARBON DIOXIDE LEVEL 26 MEQ/L (21-32); CHLORIDE LEVEL 102 MEQ/L (98-107); CREATININE FOR GFR 0.85 MG/DL (0.70-1.30); GLOMERULAR FILTRATION RATE > 60.0 (>49); GLUCOSE, FASTING 188 MG/DL (70-100); POTASSIUM SERUM 3.8 MEQ/L (3.5-5.1); SODIUM LEVEL 138 MEQ/L (136-145)
[2022-04-18 07:38] LABS: ERYTHROCYTE SEDIMENTATION RATE 15 mm/hr (0-20)
[2022-04-18] MEDS: SYMBICORT 80/4.5MCG INHALER 6GM INH SCH ×2 (07:47→19:12)
[2022-04-18] MEDS: TIOTROPIUM INHALER/CAPSULE (SPIRIVA) INH SCH (07:47)
[2022-04-18] MEDS: DOCUSATE SODIUM 100MG CAPSULE PO SCH ×2 (08:05→20:34)
[2022-04-18] MEDS: PANTOPRAZOLE 40MG TAB (PROTONIX) PO SCH ×2 (08:05→20:43)
[2022-04-18] MEDS: MULTIVITAMINS/MINERALS THERAP 1 TAB PO SCH (08:05)
[2022-04-18] MEDS: APIXABAN 5 MG TAB (ELIQUIS) PO SCH ×2 (08:05→20:34)
[2022-04-18] MEDS: FOLIC ACID 1MG TAB PO SCH (08:05)
[2022-04-18] MEDS: METOPROLOL TART 50 MG TAB PO SCH ×2 (08:08→20:36)
[2022-04-18] MEDS: INSULIN LISPRO (NovoLOG) PER UNIT SC SCH ×3 (08:09→17:30)
[2022-04-18] MEDS: predniSONE 20 MG TAB PO SCH (08:15)
[2022-04-18] MEDS: SENNA 8.6 MG TAB (SENOKOT) PO SCH (08:16)
[2022-04-18] MEDS: MIRALAX *UNIT DOSE* 17GM PACKET PO SCH (09:00)
[2022-04-18] MEDS: BISACODYL 10 MG SUPP PR SCH ×3 (09:00→20:35)
[2022-04-18] MEDS: FLECAINIDE 50MG TABLET PO SCH ×2 (09:24→20:34)
[2022-04-18] MEDS: LORazepam 2 MG TAB PO PRN (20:58)
[2022-04-18] MEDS: methocarbamoL 750 MG TAB PO PRN (21:12)
[2022-04-19] VITALS (7 sets, daily range): BP systolic 136–160; BP diastolic 71–92
[2022-04-19] MEDS: KETOROLAC 30 MG/ML 1ML VIAL IV SCH ×4 (03:12→20:38)
[2022-04-19 04:08] LABS: BASO # 0.1 10^3/uL (0.0-0.2); BASO % 0.4 % (0.0-1.0); EOS # 0.3 10^3/uL (0.0-0.5); EOS % 2.1 % (0.0-3.0); HEMATOCRIT 45.9 % (42.0-52.0); LYMPH # 2.4 10^3/uL (1.5-5.0); LYMPH % 15.4 % (24.0-44.0); MEAN CORPUSCULAR HEMOGLOBIN 28.3 pg (27.0-33.0); MEAN CORPUSCULAR HGB CONC 32.7 g/dl (32.0-36.5); MEAN CORPUSCULAR VOLUME 86.6 fl (80.0-96.0); MONO # 1.3 10^3/uL (0.0-0.8); MONO % 8.5 % (2.0-8.0); NEUTROPHILS # 11.5 10^3/uL (1.5-8.5); NEUTROPHILS % 72.7 % (36.0-66.0); PLATELET COUNT, AUTOMATED 324 10^3/uL (150-450); WHITE BLOOD COUNT 15.8 10^3/uL (4.0-10.0)
[2022-04-19 04:37] LABS: BLOOD UREA NITROGEN 23 MG/DL (7-18); CALCIUM LEVEL 8.4 MG/DL (8.8-10.2); CARBON DIOXIDE LEVEL 26 MEQ/L (21-32); CHLORIDE LEVEL 102 MEQ/L (98-107); CREATININE FOR GFR 0.82 MG/DL (0.70-1.30); GLOMERULAR FILTRATION RATE > 60.0 (>49); GLUCOSE, FASTING 197 MG/DL (70-100); SODIUM LEVEL 135 MEQ/L (136-145)
[2022-04-19] MEDS: PERCOCET 5MG/325MG TAB PO PRN ×3 (04:56→18:03)
[2022-04-19] MEDS: TIOTROPIUM INHALER/CAPSULE (SPIRIVA) INH SCH (07:44)
[2022-04-19] MEDS: SYMBICORT 80/4.5MCG INHALER 6GM INH SCH ×2 (07:44→19:24)
[2022-04-19] MEDS: PANTOPRAZOLE 40MG TAB (PROTONIX) PO SCH ×2 (08:28→20:38)
[2022-04-19] MEDS: predniSONE 20 MG TAB PO SCH (08:29)
[2022-04-19] MEDS: APIXABAN 5 MG TAB (ELIQUIS) PO SCH ×2 (08:29→20:38)
[2022-04-19] MEDS: MULTIVITAMINS/MINERALS THERAP 1 TAB PO SCH (08:29)
[2022-04-19] MEDS: FLECAINIDE 50MG TABLET PO SCH ×2 (08:29→20:38)
[2022-04-19] MEDS: DOCUSATE SODIUM 100MG CAPSULE PO SCH ×2 (08:30→20:38)
[2022-04-19] MEDS: METOPROLOL TART 50 MG TAB PO SCH ×2 (08:30→20:40)
[2022-04-19] MEDS: FOLIC ACID 1MG TAB PO SCH (08:31)
[2022-04-19] MEDS: INSULIN LISPRO (NovoLOG) PER UNIT SC SCH ×3 (08:31→18:02)
[2022-04-19] MEDS: MIRALAX *UNIT DOSE* 17GM PACKET PO SCH (08:35)
[2022-04-19] MEDS: SENNA 8.6 MG TAB (SENOKOT) PO SCH (08:35)
[2022-04-19] MEDS: BISACODYL 10 MG SUPP PR SCH ×3 (11:49→20:51)
[2022-04-19] MEDS: LORazepam 2 MG TAB PO PRN ×3 (12:00→20:41)
[2022-04-19] MEDS ORDERED: FUROSEMIDE 100MG/10ML VIAL (J1940) IV ONE (12:25)
[2022-04-19] MEDS ORDERED: LOPR1TAB6 PO (12:28)
[2022-04-19] MEDS ORDERED: DILT30TA PO (12:28)
[2022-04-19] MEDS ORDERED: PERCOCET PO (12:28)
[2022-04-20] MEDS: PERCOCET 5MG/325MG TAB PO PRN ×4 (00:14→22:26)
[2022-04-20] MEDS: KETOROLAC 30 MG/ML 1ML VIAL IV SCH ×4 (03:48→21:20)
[2022-04-20] MEDS: LORazepam 2 MG TAB PO PRN ×4 (03:52→21:28)
[2022-04-20 04:00] VITALS: BP 130/82
[2022-04-20 05:28] LABS: BASO # 0.1 10^3/uL (0.0-0.2); BASO % 0.5 % (0.0-1.0); EOS # 0.3 10^3/uL (0.0-0.5); HEMATOCRIT 47.4 % (42.0-52.0); HEMOGLOBIN 15.3 g/dl (13.5-17.5); LYMPH # 2.6 10^3/uL (1.5-5.0); LYMPH % 17.1 % (24.0-44.0); MEAN CORPUSCULAR HEMOGLOBIN 28.5 pg (27.0-33.0); MEAN CORPUSCULAR HGB CONC 32.3 g/dl (32.0-36.5); MEAN CORPUSCULAR VOLUME 88.3 fl (80.0-96.0); MONO # 1.5 10^3/uL (0.0-0.8); MONO % 9.4 % (2.0-8.0); NEUTROPHILS # 10.8 10^3/uL (1.5-8.5); NEUTROPHILS % 70.3 % (36.0-66.0); PLATELET COUNT, AUTOMATED 348 10^3/uL (150-450); RED BLOOD COUNT 5.37 10^6/uL (4.30-6.10); WHITE BLOOD COUNT 15.4 10^3/uL (4.0-10.0)
[2022-04-20 06:04] LABS: BLOOD UREA NITROGEN 28 MG/DL (7-18); CALCIUM LEVEL 8.8 MG/DL (8.8-10.2); CARBON DIOXIDE LEVEL 27 MEQ/L (21-32); CHLORIDE LEVEL 99 MEQ/L (98-107); CREATININE FOR GFR 0.93 MG/DL (0.70-1.30); GLOMERULAR FILTRATION RATE > 60.0 (>49); GLUCOSE, FASTING 173 MG/DL (70-100); POTASSIUM SERUM 3.8 MEQ/L (3.5-5.1); SODIUM LEVEL 132 MEQ/L (136-145)
[2022-04-20] MEDS: TIOTROPIUM INHALER/CAPSULE (SPIRIVA) INH SCH (08:00)
[2022-04-20] MEDS: INSULIN LISPRO (NovoLOG) PER UNIT SC SCH ×3 (08:42→18:10)
[2022-04-20] MEDS: FLECAINIDE 50MG TABLET PO SCH ×2 (08:43→21:27)
[2022-04-20] MEDS: MULTIVITAMINS/MINERALS THERAP 1 TAB PO SCH (08:43)
[2022-04-20] MEDS: APIXABAN 5 MG TAB (ELIQUIS) PO SCH ×2 (08:43→21:20)
[2022-04-20] MEDS: FOLIC ACID 1MG TAB PO SCH (08:43)
[2022-04-20] MEDS: predniSONE 20 MG TAB PO SCH (08:43)
[2022-04-20] MEDS: PANTOPRAZOLE 40MG TAB (PROTONIX) PO SCH ×2 (08:44→21:20)
[2022-04-20] MEDS: METOPROLOL TART 50 MG TAB PO SCH ×3 (08:44→21:20)
[2022-04-20] MEDS: DOCUSATE SODIUM 100MG CAPSULE PO SCH ×2 (08:44→21:20)
[2022-04-20] MEDS: SENNA 8.6 MG TAB (SENOKOT) PO SCH (08:46)
[2022-04-20] MEDS: BISACODYL 10 MG SUPP PR SCH ×2 (08:46→21:21)
[2022-04-20] MEDS: MIRALAX *UNIT DOSE* 17GM PACKET PO SCH (08:46)
[2022-04-20] MEDS: SYMBICORT 80/4.5MCG INHALER 6GM INH SCH ×2 (09:30→21:10)
[2022-04-20] MEDS ORDERED: FUROSEMIDE 100MG/10ML VIAL (J1940) IV ONE (09:55)
[2022-04-20] MEDS ORDERED: METOPROLOL TART 25 MG TABLET PO ONE (09:55)
[2022-04-20] MEDS ORDERED: LOPR1TAB6 PO (14:09)
[2022-04-20 15:45] VITALS: BP 129/70
[2022-04-20 20:00] VITALS: BP 132/74
[2022-04-20] MEDS ORDERED: METOPROLOL TART 25 MG TABLET PO SCH (21:00)
[2022-04-21 00:34] VITALS: BP 143/76
[2022-04-21] MEDS: KETOROLAC 30 MG/ML 1ML VIAL IV SCH ×2 (03:38→08:51)
[2022-04-21 05:56] VITALS: BP 161/82
[2022-04-21 06:10] LABS: BASO # 0.1 10^3/uL (0.0-0.2); BASO % 0.4 % (0.0-1.0); EOS # 0.3 10^3/uL (0.0-0.5); EOS % 1.9 % (0.0-3.0); HEMATOCRIT 44.3 % (42.0-52.0); HEMOGLOBIN 14.7 g/dl (13.5-17.5); LYMPH # 3.3 10^3/uL (1.5-5.0); LYMPH % 19.5 % (24.0-44.0); MEAN CORPUSCULAR HEMOGLOBIN 28.7 pg (27.0-33.0); MEAN CORPUSCULAR HGB CONC 33.2 g/dl (32.0-36.5); MEAN CORPUSCULAR VOLUME 86.5 fl (80.0-96.0); MONO # 1.5 10^3/uL (0.0-0.8); MONO % 8.7 % (2.0-8.0); NEUTROPHILS # 11.6 10^3/uL (1.5-8.5); NEUTROPHILS % 68.6 % (36.0-66.0); PLATELET COUNT, AUTOMATED 350 10^3/uL (150-450); RED BLOOD COUNT 5.12 10^6/uL (4.30-6.10); WHITE BLOOD COUNT 16.8 10^3/uL (4.0-10.0)
[2022-04-21 06:43] LABS: BLOOD UREA NITROGEN 31 MG/DL (7-18); CALCIUM LEVEL 8.8 MG/DL (8.8-10.2); CARBON DIOXIDE LEVEL 30 MEQ/L (21-32); CHLORIDE LEVEL 97 MEQ/L (98-107); CREATININE FOR GFR 1.05 MG/DL (0.70-1.30); GLOMERULAR FILTRATION RATE > 60.0 (>49); GLUCOSE, FASTING 166 MG/DL (70-100); POTASSIUM SERUM 4.2 MEQ/L (3.5-5.1); SODIUM LEVEL 133 MEQ/L (136-145)
[2022-04-21] MEDS ORDERED: TORS20TA2 PO ×2 (07:00→11:14)
[2022-04-21 07:49] VITALS: BP 118/68
[2022-04-21] MEDS ORDERED: TORSEMIDE 20 MG TAB PO ONE (08:00)
[2022-04-21] MEDS: SYMBICORT 80/4.5MCG INHALER 6GM INH SCH (08:01)
[2022-04-21] MEDS: TIOTROPIUM INHALER/CAPSULE (SPIRIVA) INH SCH (08:01)
[2022-04-21] MEDS: DOCUSATE SODIUM 100MG CAPSULE PO SCH (08:48)
[2022-04-21] MEDS: FOLIC ACID 1MG TAB PO SCH (08:48)
[2022-04-21] MEDS: APIXABAN 5 MG TAB (ELIQUIS) PO SCH (08:48)
[2022-04-21 08:49] VITALS: BP 118/68
[2022-04-21] MEDS: METOPROLOL TART 50 MG TAB PO SCH (08:49)
[2022-04-21] MEDS: PANTOPRAZOLE 40MG TAB (PROTONIX) PO SCH (08:49)
[2022-04-21] MEDS: FLECAINIDE 50MG TABLET PO SCH (08:50)
[2022-04-21] MEDS: SENNA 8.6 MG TAB (SENOKOT) PO SCH (08:50)
[2022-04-21] MEDS: MULTIVITAMINS/MINERALS THERAP 1 TAB PO SCH (08:50)
[2022-04-21] MEDS: INSULIN LISPRO (NovoLOG) PER UNIT SC SCH (08:51)
[2022-04-21] MEDS: BISACODYL 10 MG SUPP PR SCH (08:51)
[2022-04-21] MEDS: MIRALAX *UNIT DOSE* 17GM PACKET PO SCH (08:51)
[2022-04-21] MEDS: LORazepam 2 MG TAB PO PRN (08:57)
== END 2022-04-21 11:29 | disposition home or self-care (01) | DRG 871 ==
LOC: M ICU 04-12 00:42 → M PCU 04-15 20:10
PROVIDERS: ADMIT Internal Medicine; ATTEND Internal Medicine Nephrology
DX: A41.9 Sepsis, unspecified organism (principal); I50.33 Acute on chronic diastolic (congestive) heart failure; F13.239 Sedative, hypnotic or anxiolytic dependence with withdrawal, unspecified; I48.92 Unspecified atrial flutter; E87.21 Acute metabolic acidosis; I16.0 Hypertensive urgency; I11.0 Hypertensive heart disease with heart failure; J43.9 Emphysema, unspecified; E11.9 Type 2 diabetes mellitus without complications; E78.5 Hyperlipidemia, unspecified; R00.1 Bradycardia, unspecified; R33.9 Retention of urine, unspecified; L27.0 Generalized skin eruption due to drugs and medicaments taken internally; R74.01 Elevation of levels of liver transaminase levels; M10.9 Gout, unspecified; K80.20 Calculus of gallbladder without cholecystitis without obstruction; R94.5 Abnormal results of liver function studies; B18.2 Chronic viral hepatitis C; K76.0 Fatty (change of) liver, not elsewhere classified; M54.2 Cervicalgia; M47.9 Spondylosis, unspecified; I48.0 Paroxysmal atrial fibrillation; F41.9 Anxiety disorder, unspecified; M19.90 Unspecified osteoarthritis, unspecified site; Z79.899 Other long term (current) drug therapy; Z88.6 Allergy status to analgesic agent; Z88.8 Allergy status to other drugs, medicaments and biological substances; Z87.891 Personal history of nicotine dependence; Z79.01 Long term (current) use of anticoagulants; Z87.442 Personal history of urinary calculi

== ENCOUNTER → 2023-03-24 | Outpatient (REF) | payer MEDICARE ==
[~2023-03-24] MED LIST changes: +ALBU8.5H INH; +ALLO100T PO; +LOPR1TAB6 PO; +PERCOCET PO; +TORS20TA2 PO; +TREL1AER PO; +ZOLP10TA2 PO
[2023-03-24 16:25] LABS: BASO # 0.1 10^3/uL (0.0-0.2); BASO % 1.1 % (0.0-1.0); EOS # 0.7 10^3/uL (0.0-0.5); EOS % 6.3 % (0.0-3.0); HEMATOCRIT 51.7 % (42.0-52.0); HEMOGLOBIN 16.8 g/dl (13.5-17.5); LYMPH # 2.4 10^3/uL (1.5-5.0); LYMPH % 20.3 % (24.0-44.0); MEAN CORPUSCULAR HEMOGLOBIN 29.4 pg (27.0-33.0); MEAN CORPUSCULAR HGB CONC 32.5 g/dl (32.0-36.5); MEAN CORPUSCULAR VOLUME 90.4 fl (80.0-96.0); MONO # 0.9 10^3/uL (0.0-0.8); MONO % 7.9 % (2.0-8.0); NEUTROPHILS # 7.4 10^3/uL (1.5-8.5); PLATELET COUNT, AUTOMATED 196 10^3/uL (150-450); RED BLOOD COUNT 5.72 10^6/uL (4.30-6.10); WHITE BLOOD COUNT 11.6 10^3/uL (4.0-10.0)
== END ==
LOC: M LAB REF 13:21
PROVIDERS: ATTEND Internal Medicine Pulmonary Disease
DX: R06.2 Wheezing (principal)

== ENCOUNTER → 2023-04-22 | Outpatient (REF) | payer MEDICARE ==
[~2023-04-22] MED LIST changes: -OXYB5TAB10 PO; +OXYB5TAB11 PO
== END ==
LOC: M LAB REF 13:20
PROVIDERS: ATTEND Internal Medicine Pulmonary Disease
DX: J47.9 Bronchiectasis, uncomplicated (principal)

== ENCOUNTER 2023-06-19 10:07 | Day surgery (SDC) | payer MEDICARE ==
[~2023-06-19] VITALS: Ht 188 cm; Wt 110.6 kg
[~2023-06-19 10:07] MED LIST changes: +BUDE10.7 IH; +DILT60TA PO; +NS 1,000 ML IV ONE; +PRAV40TA2 PO; +SING5CHW23 PO
[2023-06-19] MEDS ORDERED: propofoL 200 MG/20 ML VIAL As Ordered ONE (12:37)
[2023-06-19] MEDS ORDERED: LIDOCAINE 2% 100MG/5ML SDV (FOR ANES.) As Ordered ONE (12:37)
[2023-06-19 12:53] VITALS: TEMP 97.6
[2023-06-19 13:14] VITALS: BP 155/89; O2SAT 95
== END 2023-06-19 13:34 | disposition home or self-care (01) ==
LOC: M OPP 10:07
PROVIDERS: ATTEND Internal Medicine Gastroenterology
DX: Z12.11 Encounter for screening for malignant neoplasm of colon (principal); K63.5 Polyp of colon; K57.30 Diverticulosis of large intestine without perforation or abscess without bleeding; K64.8 Other hemorrhoids; Z87.891 Personal history of nicotine dependence; I48.91 Unspecified atrial fibrillation; E11.9 Type 2 diabetes mellitus without complications; Z79.2 Long term (current) use of antibiotics; Z79.51 Long term (current) use of inhaled steroids; Z79.84 Long term (current) use of oral hypoglycemic drugs; Z79.899 Other long term (current) drug therapy; Z88.5 Allergy status to narcotic agent; Z88.6 Allergy status to analgesic agent

== ENCOUNTER → 2023-10-13 | Outpatient (REF) | payer MEDICARE ==
[~2023-10-13] MED LIST changes: +IRBE150T27 PO; -IRBE150T7 PO; +MONT5TAB7 PO; -NS 1,000 ML IV ONE; -OXYB5TAB11 PO; +OXYB5TAB14 PO; -SING5CHW23 PO
== END ==
LOC: M LAB REF 12:34
PROVIDERS: ATTEND Physician Assistant
DX: J45.21 Mild intermittent asthma with (acute) exacerbation (principal)